=== PATIENT | female | born 1985 | race Caucasian/White ===

== ENCOUNTER 2017-10-12 19:21 | Emergency (ER) | payer OTHER, SELFPAY ==
[2017-10-12 19:29] VITALS: BP 115/75; PULSE 65; RESP 18; TEMP 36.9; O2SAT 99
[2017-10-12 19:50] LABS: Bacteria Urine Moderate (10-30); RBC Urine 5-10/HPF (0-5/HPF); WBC Urine 10-30/HPF (0-5/HPF)
[2017-10-12 19:51] LABS: Culture Indicated Urine Specimen Cultured; Mucus Urine 1+ (Negative)
--- NOTE | 2017-10-12 20:19 | ED_ITS ---
HPI - Female Genitourinary General Chief complaint: Urogenital-Female Stated complaint: thinks she has a UTI Time Seen by Provider: 10/12/17 19:28 History of Present Illness HPI Narrative: HPI 32-year-old female presents with one half day of urinary frequency in dysuria. Denies fevers, chills, flank pain. No history of kidney stones ROS with no recent constitutional symptoms. Exam Gen: Pleasant, non-toxic appearing, resting comfortably HEENT: NC, AT, PEERL, EOMI. Resp: Clear to auscultation bilaterally. Unlabored respirations with a normal work of breathing. Card: Regular rate and rhythm. Extremities warm and well perfused. GI: nondistended, nontender to palpation throughout all quadrants, no rebound, no guarding. : no CVA tenderness percussion bilaterally, no suprapubic tenderness to palpation. MSK: No visible deformities, strength and tone without visually appreciable deficit. Neuro: AO x 3, no facial asymmetry, vision and hearing WNL. Heme/Lymph: Deferred Skin: Normal color with no visible lesions (other than noted above). Psych: Mood and affect appropriate. UA - 5-10 RBCs, 10-30 WBCs, moderate bacteria. Negative urine test MDM Previous chart, nursing note, and vitals reviewed. A: 32-year-old female presents with one half day of urinary frequency in dysuria. DDx & Evaluation: UA consistent with UTI, history and exam without evidence of pyelonephritis, doubt ureterolithiasis given history and exam. Negative urine test. Rx for macrobid provided. Impression: UTI (please reference below for remainder of encounter information) Related Data Home Medications Medication Instructions Recorded Confirmed MULTIVITAMIN (One Daily 1 tab PO Q DAY #0 01/24/11 Multivitamin) [L-Lysine] 1,000 mg PO QDAY #0 11/25/16 [TURMERIC/CURCUMIN] 1 tab PO QDAY #0 08/14/17 [VITAMIN D3] PO QDAY #0 08/14/17 Previous Rx's Medication Instructions Recorded montelukast 10 mg PO PM #30 tab 02/18/17 triamcinolone acetonide 1 malika TOPICAL QDAY-BID #30 gm 02/18/17 fluconazole 200 mg PO QDAY #2 tab 03/27/17 drospirenone-ethinyl estradiol 1 tab PO QDAY #28 tab 08/14/17 [Myrtle] Allergies Allergy/AdvReac Type Severity Reaction Status Date / Time clindamycin [CLINDAMYCIN] Allergy Intermediate I JUST Unverified 09/03/17 12:12 DID NOT FEEL WELL AND MY BRAIN FELT FUZZY Penicillins [PENICILLINS] Allergy Intermediate HIVES Unverified 09/03/17 12:12 Sulfa (Sulfonamide Allergy Mild ITCHY Unverified 09/03/17 12:12 Antibiotics) [SULFA (SULFONAMIDE ANTIBIOTICS)] escitalopram [ESCITALOPRAM] AdvReac Intermediate (LEXAPRO) Unverified 09/03/17 12:12 HIVES PFSH Surgical History Status post delivery (01/21/09) Family History Mother Paraneoplastic syndrome, Onset Age: 47 Stiff person syndrome, Onset Age: 47 Exam Initial Vital Signs Initial Vital Signs: Vital Signs Temperature 98.5 F 10/12/17 19:29 Pulse Rate 65 10/12/17 19:29 Respiratory Rate 18 10/12/17 19:29 Blood Pressure 115/75 10/12/17 19:29 Pulse Oximetry 99 10/12/17 19:29 Course Orders Ordered: ED Orders 10/12/17 19:39 Urine Culture Stat Urine Microscopic Stat Discontinued Medications Nitrofurantoin Macrocrystals (Macrobid 100 Mg Capsule) 100 mg PO NOW ONE Stop: 10/12/17 20:17 Vital Signs - 8 hr 10/12/17 19:29 Temperature 98.5 F Pulse Rate 65 Respiratory Rate 18 Blood Pressure 115/75 Pulse Oximetry 99 MDM - Female Genitourinary Lab Data Lab Results 10/12/17 Range/Units 19:39 Urine RBC 5-10/hpf H (0-5/HPF) Urine WBC 10-30/hpf H (0-5/HPF) Urine Bacteria Moderate (10-30) H (None) Urine Mucus 1+ H (Negative) Ur Culture Indicated? Specimen cultured Micro UA Comment Not Reportable Discharge Plan Departure Prescriptions: No Action MULTIVITAMIN (One Daily Multivitamin) 1 tab PO Q DAY Qty: 0 RF: 0 [L-Lysine] 1,000 mg PO QDAY Qty: 0 RF: 0 triamcinolone acetonide 0.5 % ointment 1 malika Topical QDAY-BID Qty: 30 RF: 3 montelukast 10 MG tablet 10 mg PO PM Qty: 30 RF: 6 fluconazole 200 MG tablet 200 mg PO QDAY Qty: 2 RF: 1 [VITAMIN D3] PO QDAY Qty: 0 RF: 0 [TURMERIC/CURCUMIN] 1 tab PO QDAY Qty: 0 RF: 0 drospirenone-ethinyl estradiol [Myrtle] 0.03 MG/3 MG tablet 1 tab PO QDAY Qty: 28 RF: 12
[2017-10-12] MEDS: NITROFURANTOIN ER 100 MG CAPSULE PO (20:23)
[2017-10-12 20:29] VITALS: BP 119/80; PULSE 80; RESP 16; TEMP 36.6; O2SAT 98
== END 2017-10-12 20:30 | disposition home or self-care (01) ==
PROVIDERS: Emergency Provider Emergency Medicine; Family Provider Physician Assistant; PCP Physician Assistant
DX: N39.0 Urinary tract infection, site not specified (principal)
CPT/HCPCS: 81003; 81015; 81025; 87086; 87186; 99282; 99283

== ENCOUNTER → 2018-09-01 15:21 | Outpatient (CLI) | payer OTHER, SELFPAY | PROVIDERS: Family Provider Physician Assistant; PCP Physician Assistant; Visit Provider Physician Assistant | DX: R30.0 Dysuria (principal) | CPT/HCPCS: 87077; 87086; 87186 ==

== ENCOUNTER → 2018-09-17 14:23 | Outpatient (CLI) | payer OTHER, SELFPAY ==
[2018-09-17 14:40] LABS: Add Manual Diff / Slide Review NO; Basophils Absolute Auto 100 /uL (0-100); Basophils Percent Auto 0.9 % (0-2); Eosinophils Absolute Auto 0 /uL (0-450); Eosinophils Percent Auto 0.5 % (2-4); Hematocrit 40.3 % (36-46); Hemoglobin 13.8 g/dL (12.0-16.0); Lymphocytes Absolute Auto 2200 /uL (1100-4500); Lymphocytes Percent Auto 23.9 % (25-40); Mean Corpuscular HGB Conc 34.2 % (30-36); Mean Corpuscular Hemoglobin 30.7 PG (26-34); Mean Corpuscular Volume 89.7 fL (80-100); Monocytes Absolute Auto 700 /uL (0-900); Neutrophils Absolute Auto 6300 /uL (1500-7000); Neutrophils Percent Auto 67.7 % (50-75); Platelet Count 277 X10^3/uL (150-400); Red Blood Cell Count 4.49 X10^6/uL (4.0-5.2); Red Cell Distribution Width 13.2 % (11.6-14.8); White Blood Cell Count 9.3 X10^3/uL (4.5-11.0)
[2018-09-17 15:29] LABS: Alanine Aminotransferase 14 IU/L (9-52); Albumin 4.5 g/dL (3.5-5.0); Albumin Globulin Ratio 1.5 (1.0-2.8); Alkaline Phosphatase 98 U/L (38-126); Aspartate Aminotransferase 25 IU/L (14-36); Bilirubin Total 0.5 mg/dL (0.2-1.3); Blood Urea Nitrogen 16 mg/dL (7-17); Calcium 9.6 mg/dL (8.4-10.2); Carbon Dioxide 25 mmol/L (22-32); Chloride 100 mmol/L (98-107); Estimated Glomerular Filt Rate > 60.0 mL/min (>60); Globulin 3.1 g/dL (1.7-4.1); Glucose 89 mg/dL (70-100); HEMOLYSIS 18 (0-50); Potassium 4.5 mmol/L (3.4-5.1); Sodium 136 mmol/L (137-145); Total Protein 7.6 g/dL (6.3-8.2)
[2018-09-17 15:58] LABS: Thyroid Stimulating Hormone 0.95 uIU/mL (0.47-4.68)
== END ==
PROVIDERS: PCP Physician Assistant; Visit Provider Physician Assistant
DX: L65.9 Nonscarring hair loss, unspecified (principal); R53.83 Other fatigue
CPT/HCPCS: 36415; 80053; 84443; 85025

== ENCOUNTER → 2019-02-24 14:22 | Outpatient (CLI) | payer OTHER, SELFPAY ==
[2019-02-24 15:24] LABS: HEMOLYSIS < 15 (0-50); Iron 81 ug/dL (37-170)
[2019-02-24 15:30] LABS: Erythrocyte Sedimentation Rate 8 MM/HR (0-20)
[2019-02-24 15:35] LABS: Percent Iron Saturation 24 % (15-50); Total Iron Binding Capacity 344 ug/dL (265-497); Transferrin 291 mg/dL (206-381)
[2019-02-24 15:42] LABS: Free T3, Triiodothyronine Free 4.39 pg/mL (2.77-5.27); Free T4, Direct Thyroxine 0.89 ng/dL (0.78-2.19)
[2019-02-24 15:56] LABS: Thyroid Stimulating Hormone 0.97 uIU/mL (0.47-4.68)
[2019-02-24 16:17] LABS: Vitamin B12 595 pg/mL (239-931)
== END ==
PROVIDERS: PCP Physician Assistant; Visit Provider Physician Assistant
DX: L40.9 Psoriasis, unspecified (principal); L60.8 Other nail disorders; R63.5 Abnormal weight gain; M25.50 Pain in unspecified joint; R52 Pain, unspecified; R53.83 Other fatigue
CPT/HCPCS: 36415; 82607; 83540; 83550; 84439; 84443; 84481; 85651

== ENCOUNTER → 2019-04-20 14:31 | Outpatient (CLI) | payer OTHER, SELFPAY | PROVIDERS: PCP Physician Assistant | DX: Z23 Encounter for immunization (principal) | CPT/HCPCS: 90471; 90686 ==

== ENCOUNTER → 2019-08-14 08:57 | Outpatient (CLI) | payer OTHER, SELFPAY ==
[2019-08-14 10:23] LABS: Add Manual Diff / Slide Review NO; Basophils Absolute Auto 0 /uL (0-100); Basophils Percent Auto 0.5 % (0-2); Eosinophils Absolute Auto 0 /uL (0-450); Eosinophils Percent Auto 0.9 % (2-4); Hematocrit 41.6 % (36-46); Hemoglobin 13.6 g/dL (12.0-16.0); Lymphocytes Absolute Auto 2100 /uL (1100-4500); Lymphocytes Percent Auto 35.9 % (25-40); Mean Corpuscular HGB Conc 32.7 % (30-36); Mean Corpuscular Hemoglobin 30.4 PG (26-34); Monocytes Absolute Auto 500 /uL (0-900); Monocytes Percent Auto 8.8 % (3-14); Neutrophils Absolute Auto 3100 /uL (1500-7000); Neutrophils Percent Auto 53.9 % (50-75); Platelet Count 269 X10^3/uL (150-400); Red Blood Cell Count 4.47 X10^6/uL (4.0-5.2); Red Cell Distribution Width 13.1 % (11.6-14.8); White Blood Cell Count 5.7 X10^3/uL (4.5-11.0)
[2019-08-14 10:41] LABS: Alanine Aminotransferase 8 IU/L (<35); Albumin 4.6 g/dL (3.5-5.0); Albumin Globulin Ratio 1.4 (1.0-2.8); Alkaline Phosphatase 79 U/L (38-126); Aspartate Aminotransferase 20 IU/L (14-36); BUN Creatinine Ratio 20.3 (6-22); Bilirubin Total 0.6 mg/dL (0.2-1.3); Blood Urea Nitrogen 13 mg/dL (7-17); Carbon Dioxide 25 mmol/L (22-32); Chloride 103 mmol/L (98-107); Cholesterol 194 mg/dL (140-199); Estimated Glomerular Filt Rate > 60.0 mL/min (>60); Globulin 3.2 g/dL (1.7-4.1); Glucose 84 mg/dL (70-100); HDL Cholesterol 49 mg/dL (40-60); HEMOLYSIS < 15 (0-50); LDL Cholesterol Calculated 125 mg/dL (<100); Potassium 4.5 mmol/L (3.4-5.1); Sodium 137 mmol/L (137-145); Total Protein 7.8 g/dL (6.3-8.2); Triglycerides 100 mg/dL (35-150)
[2019-08-14 11:00] LABS: Vitamin D 25 Hydroxy (D3) 80.8 ng/mL (30.0-100.0)
[2019-08-14 11:12] LABS: TSH w/ Reflex to FT4 1.38 uIU/mL (0.47-4.68)
[2019-08-14 11:21] LABS: Erythrocyte Sedimentation Rate 4 MM/HR (0-20)
[2019-08-18 09:07] LABS: ANA Screen, IFA Negative (.)
== END ==
PROVIDERS: PCP Family Medicine; Referring Provider Family Medicine; Visit Provider Family Medicine
DX: Z13.29 Encounter for screening for other suspected endocrine disorder (principal); D23.9 Other benign neoplasm of skin, unspecified; E55.9 Vitamin D deficiency, unspecified; M25.50 Pain in unspecified joint; M54.5 Low back pain; R53.83 Other fatigue
CPT/HCPCS: 36415; 80053; 80061; 82306; 84443; 85025; 85651; 86038; 86430

== ENCOUNTER → 2019-09-09 07:26 | Outpatient (CLI) | payer OTHER, SELFPAY ==
--- NOTE | 2019-09-09 07:28 | DI.RAD.S_ITS ---
PROCEDURE: XR SHOULDER LT MIN 2V INDICATIONS: left shoulder pain TECHNIQUE: 3 views of the shoulder were acquired. COMPARISON: None. FINDINGS: Bones: No fractures or dislocations. No suspicious bony lesions. Visualized ribs appear intact. Mild glenohumeral joint degenerative change. Soft tissues: No suspicious soft tissue calcifications. IMPRESSION: Mild glenohumeral joint degenerative change. No evidence acute bony abnormality of the left shoulder. If clinical suspicion and/or symptoms persist, further assessment with repeat plain films, or advanced imaging (e.g., CT, MRI, or bone scan) may be helpful for further assessment. Dictated by: Willam Gabriel M.D. on 09/09/2019 at 9:03 Approved by: Willam aGbriel M.D. on 09/09/2019 at 9:03
== END ==
PROVIDERS: PCP Family Medicine; Referring Provider Family Medicine; Visit Provider Family Medicine
DX: M25.512 Pain in left shoulder (principal)
CPT/HCPCS: 73030

== ENCOUNTER → 2019-11-29 15:23 | Outpatient (CLI) | payer OTHER, SELFPAY ==
[2019-12-01 19:03] LABS: COVID19 Sendout Not Detected (Not Detect)
== END ==
PROVIDERS: PCP Family Medicine; Visit Provider Physician Assistant
DX: Z03.818 Encounter for observation for suspected exposure to other biological agents ruled out (principal)
CPT/HCPCS: 87635

== ENCOUNTER → 2020-01-21 16:37 | Outpatient (CLI) | payer OTHER, SELFPAY ==
[2020-01-21 17:24] LABS: Add Manual Diff / Slide Review NO; Basophils Absolute Auto 0 /uL (0-100); Basophils Percent Auto 0.3 % (0-2); Eosinophils Absolute Auto 100 /uL (0-450); Eosinophils Percent Auto 0.5 % (2-4); Hematocrit 40.9 % (36-46); Hemoglobin 13.8 g/dL (12.0-16.0); Lymphocytes Absolute Auto 2600 /uL (1100-4500); Mean Corpuscular HGB Conc 33.8 % (30-36); Mean Corpuscular Hemoglobin 31.2 PG (26-34); Mean Corpuscular Volume 92.3 fL (80-100); Monocytes Absolute Auto 600 /uL (0-900); Monocytes Percent Auto 5.9 % (3-14); Neutrophils Absolute Auto 6700 /uL (1500-7000); Neutrophils Percent Auto 67.3 % (50-75); Platelet Count 275 X10^3/uL (150-400); Red Blood Cell Count 4.43 X10^6/uL (4.0-5.2); Red Cell Distribution Width 13.2 % (11.6-14.8)
[2020-01-21 17:37] LABS: C-Reactive Protein Quant < 0.5 mg/dL (<1.0)
[2020-01-21 17:47] LABS: Erythrocyte Sedimentation Rate 9 MM/HR (0-20)
[2020-01-21 17:49] LABS: HCG Quantitative /Beta subunit < 2.4 mIU/mL
[2020-01-21 17:50] LABS: Follicle Stimulating Hormone 5.78 mIU/mL; Luteinizing Hormone 3.27 mIU/mL
[2020-01-23 18:18] LABS: CCP Antibodies IgG/IgA 11 units (0-19)
== END ==
PROVIDERS: PCP Family Medicine; Referring Provider Registered Nurse; Visit Provider Registered Nurse
DX: N92.6 Irregular menstruation, unspecified (principal); M05.80 Other rheumatoid arthritis with rheumatoid factor of unspecified site; M25.50 Pain in unspecified joint; R53.83 Other fatigue
CPT/HCPCS: 36415; 83001; 83002; 84702; 85025; 85651; 86140; 86200

== ENCOUNTER → 2020-01-25 10:42 | Outpatient (CLI) | payer OTHER, SELFPAY ==
--- NOTE | 2020-01-25 10:43 | DI.US.S_ITS ---
PROCEDURE: US PELVIC COMPLETE INDICATIONS: MENORRHAGIA TECHNIQUE: Real-time scanning was performed of the pelvic organs, with image documentation. Additional endovaginal scanning was necessary due to incomplete visualization of the adnexal and endometrial structures by transabdominal scanning. COMPARISON: None. FINDINGS: Transabdominal scanning: Limited scanning through the kidneys shows no hydronephrosis. No pathologic free abdominal or pelvic fluid. Endovaginal scanning: Uterus: The retroverted uterus is normal in size at 9.1 x 5.3 x 6.1 cm. The endometrium measures 4 mm in combined thickness. Ovaries: Right ovary measures 3.5 x 2.2 x 2.8 cm. Left ovary measures 4.2 x 2.3 x 2.8 cm. No suspicious ovarian or adnexal mass lesions. IMPRESSION: Unremarkable sonographic evaluation of the pelvis. No abnormalities identified to explain patient's symptoms. Dictated by: Frankie Coffman M.D. on 01/25/2020 at 11:27 Approved by: Frankie Coffman M.D. on 01/25/2020 at 11:34
== END ==
PROVIDERS: PCP Family Medicine; Referring Provider Registered Nurse; Visit Provider Registered Nurse
DX: N92.6 Irregular menstruation, unspecified (principal)
CPT/HCPCS: 76830; 76856

== ENCOUNTER → 2020-02-24 | Outpatient (CLI) | payer OTHER, SELFPAY | PROVIDERS: PCP Family Medicine; Referring Provider Internal Medicine; Visit Provider Internal Medicine | DX: Z23 Encounter for immunization (principal) | CPT/HCPCS: 90471; 90686 ==

== ENCOUNTER → 2020-04-12 08:25 | Outpatient (CLI) | payer OTHER, SELFPAY ==
[2020-04-12 11:33] LABS: COVID19 -Nasal RAPID Negative (Negative)
== END ==
PROVIDERS: PCP Family Medicine; Visit Provider Physician Assistant
DX: Z20.828 Contact with and (suspected) exposure to other viral communicable diseases (principal)
CPT/HCPCS: 87635

== ENCOUNTER → 2020-05-31 16:02 | Outpatient (CLI) | payer OTHER, SELFPAY ==
[2020-05-31] MEDS: COVID-19 VACC(MODERNA-1)/PF 100 MCG/0.5 ML VIAL IM (16:05)
== END ==
PROVIDERS: PCP Family Medicine; Visit Provider Internal Medicine
DX: Z23 Encounter for immunization (principal)
CPT/HCPCS: 0011A; 91301

== ENCOUNTER → 2020-06-27 13:54 | Outpatient (CLI) | payer OTHER, SELFPAY ==
[2020-06-27] MEDS: COVID-19 VACC #2, MRNA(MOD) 100 MCG/0.5 ML VIAL IM (13:59)
== END ==
PROVIDERS: PCP Family Medicine; Visit Provider Internal Medicine
DX: Z23 Encounter for immunization (principal)
CPT/HCPCS: 0012A; 91301

== ENCOUNTER → 2021-03-28 16:32 | Outpatient (CLI) | payer OTHER, SELFPAY ==
[2021-03-28 17:22] LABS: COVID19 -Nasal RAPID Negative (Negative)
== END ==
PROVIDERS: PCP Family Medicine; Referring Provider Nurse Practitioner Family; Visit Provider Nurse Practitioner Family
DX: Z20.822 Contact with and (suspected) exposure to COVID-19 (principal); R05.9 Cough, unspecified; R11.0 Nausea; R50.9 Fever, unspecified; R53.83 Other fatigue
CPT/HCPCS: 87635

== ENCOUNTER → 2021-04-06 12:24 | Outpatient (CLI) | payer OTHER, SELFPAY | PROVIDERS: PCP Family Medicine; Referring Provider Internal Medicine; Visit Provider Internal Medicine | DX: Z23 Encounter for immunization (principal) | CPT/HCPCS: 90471; 90686 ==

== ENCOUNTER → 2021-04-12 15:32 | Outpatient (CLI) | payer OTHER, SELFPAY ==
[2021-04-12 16:13] LABS: COVID19 -Nasal RAPID Negative (Negative)
[2021-04-12 16:33] LABS: Influenza A - CEPHEID Flu A NEGATIVE (NEGATIVE); Influenza B - CEPHEID Flu B NEGATIVE (NEGATIVE)
== END ==
PROVIDERS: PCP Family Medicine; Visit Provider Family Medicine
DX: Z20.822 Contact with and (suspected) exposure to COVID-19 (principal); R05.9 Cough, unspecified; R53.83 Other fatigue
CPT/HCPCS: 87502; 87635

== ENCOUNTER → 2021-04-12 16:11 | Outpatient (CLI) | payer OTHER, SELFPAY ==
--- NOTE | 2021-04-12 16:13 | DI.RAD.S_ITS ---
PROCEDURE: XR CHEST 2V INDICATIONS: cough TECHNIQUE: 2 views of the chest were acquired. COMPARISON: [facility], , CHEST 2 VIEW, 12/05/2016, 9:06. FINDINGS: Surgical changes and devices: None. Lungs and pleura: Lungs are clear. No pleural effusions or pneumothorax. Mediastinum: Mediastinal contours are normal. Heart size is normal. Bones and chest wall: No suspicious bony abnormalities. Soft tissues appear unremarkable. IMPRESSION: No acute process. Dictated by: Alex Girard M.D. on 04/12/2021 at 16:36 Approved by: Alex Girard M.D. on 04/12/2021 at 16:36
[2021-04-12 17:37] LABS: Add Manual Diff / Slide Review NO; Basophils Absolute Auto 0 /uL (0-100); Basophils Percent Auto 0.5 % (0-2); Eosinophils Absolute Auto 100 /uL (0-450); Eosinophils Percent Auto 1.5 % (2-4); Hematocrit 39.8 % (36-46); Hemoglobin 13.3 g/dL (12.0-16.0); Lymphocytes Absolute Auto 2900 /uL (1100-4500); Lymphocytes Percent Auto 37.5 % (25-40); Mean Corpuscular HGB Conc 33.5 % (30-36); Mean Corpuscular Hemoglobin 30.8 PG (26-34); Mean Corpuscular Volume 91.9 fL (80-100); Monocytes Absolute Auto 600 /uL (0-900); Monocytes Percent Auto 7.9 % (3-14); Neutrophils Absolute Auto 4100 /uL (1500-7000); Neutrophils Percent Auto 52.6 % (50-75); Platelet Count 308 X10^3/uL (150-400); Red Blood Cell Count 4.33 X10^6/uL (4.0-5.2); Red Cell Distribution Width 13.6 % (11.6-14.8); White Blood Cell Count 7.8 X10^3/uL (4.5-11.0)
[2021-04-12 18:07] LABS: Alanine Aminotransferase 10 IU/L (<35); Albumin 4.8 g/dL (3.5-5.0); Albumin Globulin Ratio 1.5 (1.0-2.8); Alkaline Phosphatase 92 U/L (38-126); Aspartate Aminotransferase 22 IU/L (14-36); Bilirubin Total 0.3 mg/dL (0.2-1.3); Blood Urea Nitrogen 18 mg/dL (7-17); Calcium 10.2 mg/dL (8.4-10.2); Carbon Dioxide 26 mmol/L (22-32); Chloride 100 mmol/L (98-107); Estimated Glomerular Filt Rate > 60.0 mL/min (>60); Globulin 3.2 g/dL (1.7-4.1); Glucose 85 mg/dL (70-100); HEMOLYSIS < 15 (0-50); Potassium 4.5 mmol/L (3.4-5.1); Sodium 137 mmol/L (137-145)
[2021-04-12 18:23] LABS: Vitamin D 25 Hydroxy (D3) 73.6 ng/mL (30.0-100.0)
[2021-04-12 18:26] LABS: Free T3, Triiodothyronine Free 2.86 pg/mL (2.77-5.27); Free T4, Direct Thyroxine 0.73 ng/dL (0.78-2.19)
[2021-04-12 18:39] LABS: Thyroid Stimulating Hormone 1.48 uIU/mL (0.47-4.68)
[2021-04-12 18:55] LABS: Vitamin B12 638 pg/mL (239-931)
[2021-04-14 18:18] LABS: Angiotensin Converting Enzyme 71 U/L (14-82)
== END ==
PROVIDERS: PCP Family Medicine; Referring Provider Family Medicine; Visit Provider Family Medicine
DX: R05.8 Other specified cough (principal); J34.89 Other specified disorders of nose and nasal sinuses; R41.89 Other symptoms and signs involving cognitive functions and awareness; E55.9 Vitamin D deficiency, unspecified; M25.50 Pain in unspecified joint; F33.41 Major depressive disorder, recurrent, in partial remission; L60.8 Other nail disorders; R53.83 Other fatigue; Z20.822 Contact with and (suspected) exposure to COVID-19
CPT/HCPCS: 36415; 71046; 80053; 82164; 82306; 82607; 84439; 84443; 84481; 85025; 87502; 87635

== ENCOUNTER → 2021-04-13 06:57 | Outpatient (CLI) | payer OTHER, SELFPAY ==
[2021-04-13 08:51] LABS: Cholesterol 251 mg/dL (140-199); HDL Cholesterol 49 mg/dL (40-60); LDL Cholesterol Calculated 156 mg/dL (<100); Triglycerides 231 mg/dL (35-150)
[2021-04-13 10:03] LABS: Cortisol AM (Before 10AM) 9.66 ug/dL (4.46-22.7)
== END ==
PROVIDERS: PCP Family Medicine; Referring Provider Family Medicine; Visit Provider Family Medicine
DX: R41.89 Other symptoms and signs involving cognitive functions and awareness (principal); E55.9 Vitamin D deficiency, unspecified; M25.50 Pain in unspecified joint; F33.41 Major depressive disorder, recurrent, in partial remission; L60.8 Other nail disorders
CPT/HCPCS: 36415; 80061; 82533

== ENCOUNTER → 2021-04-13 13:48 | Outpatient (CLI) | payer OTHER, SELFPAY ==
[2021-04-13] MEDS: COVID-19 VACC #3, MRNA(MOD) 50 MCG/0.25 ML VIAL IM (13:52)
== END ==
PROVIDERS: PCP Family Medicine; Visit Provider Internal Medicine
DX: Z23 Encounter for immunization (principal)
CPT/HCPCS: 0013A; 91301

== ENCOUNTER → 2021-05-22 15:26 | Outpatient (CLI) | payer OTHER, SELFPAY ==
--- NOTE | 2021-05-22 15:32 | DIET.CONS ---
Dietary Consultation Note Assessment: 35y [address] attending [address] visit for help with nutrition reccs for hypothyroid and HLD. Pt with recent labs showing HLD (LDL 156), hypothyroid (normal TSH and T4, low T3). Pt was recommended a GF diet from PCP and has been reading advice online which is conflicting and seems restrictive to her. Pt currently GF, avoiding cruciferous vegetables, soy, wondering if she should cut out all grains. Pt feels this confusion is leading to her not eating enough throughout the day, two meals and two snacks daily. Pts mom has stiff person symptom and hashimotos, pt not surprised, but not happy about her new dx. Pt also dealing with persistent cough awaiting chest CT. Taking levo-thyroxine for past 4-5w Takes first thing when wakes up with glass of water, then waiting hour before coffee and food. Pt eats eggs regularly, is avoiding most dairy at this time to try to manage HLD. Pt does not salt food at home, limited seafood intake, and no sea vegetable intake. Usual Day: takes med as directed 1 cup coffee c oatmilk creamer B: SO Delicious coconut yogurt c GF granola or 1 egg c hashbrowns Sn: Hummus c GF crackers, beef stick, freeze dried fruit and handful nuts D: GF pasta c Minimum 60oz water daily RD Impression: Pt may be low on iodine as evidenced by food recall and low T3 levels. Pt diet low in soluble fiber which is not helping HLD. Nutrition Diagnosis: nutrition related knowledge deficit r/t diet to support hypothyroid and HLD aeb pt getting conflicting advice and limiting diet as a result. Interventions: 1. Provided pt copy integrative hypothyroid nutrition and supplement handout. Pt will start incorporating iodine into diet whether seafood or sea vegetable based. Pt should not have to avoid soy or cruciferous vegetables if iodine levels are normalized. Pt would love to have this flexibility. Pt will eat 2 brazil nuts daily for selenium source and ensure Vit A, iron, and zinc through colorful vegetables and beans. 2. Discussed GF diet, good idea for pt to continue this, focus on lower GI foods, more collier based to take advantage of the soluble fiber to help cholesterol levels. Discussed purchasing mandolin for making zucchini noodles and homemade hashed browns. 3. Discussed importance of soluble fiber foods to lower LDL and total cholesterol. 4. Discussed starting meal service as pt wants to learn to cook. Pt will look into [employer] as they have GF plans. Also discussed purchasing regular meal and having GF options at home to swap since rest of house is not GF. Monitoring/Evaluations: f/u in 2mo Electronically Signed by: No Lao 05/22/21 15:32 Clinical Dietitian [address] [id number]
== END ==
PROVIDERS: PCP Family Medicine; Referring Provider Family Medicine; Visit Provider Family Medicine
DX: E03.9 Hypothyroidism, unspecified (principal); E78.5 Hyperlipidemia, unspecified
CPT/HCPCS: 97802

== ENCOUNTER → 2021-05-31 14:54 | Outpatient (CLI) | payer OTHER, SELFPAY ==
[2021-05-31 18:22] LABS: COVID19 -Nasal RAPID Negative (Negative)
== END ==
PROVIDERS: PCP Family Medicine; Referring Provider Internal Medicine; Visit Provider Internal Medicine
DX: Z20.822 Contact with and (suspected) exposure to COVID-19 (principal)
CPT/HCPCS: 87635; C9803

== ENCOUNTER → 2021-06-01 08:45 | Outpatient (CLI) | payer OTHER, SELFPAY ==
[2021-06-01 15:22] LABS: Free T3, Triiodothyronine Free 3.58 pg/mL (2.77-5.27); Free T4, Direct Thyroxine 1.05 ng/dL (0.78-2.19)
[2021-06-01 15:36] LABS: Thyroid Stimulating Hormone 0.717 uIU/mL (0.47-4.68)
[2021-06-02 21:11] LABS: Anti Thyroglobulin Antibody <1.0 IU/mL (0.0-0.9); Thyroid Peroxidase Antibodies <8 IU/mL (0-34)
--- NOTE | 2021-06-04 08:56 | PM.PFT.1 ---
Pulmonary Function Test Referral & Results Date Patient Seen: 06/01/21 Requesting provider: Florentin Cook Results: The spirometry demonstrates an FVC of 3.57 L which is 98% of predicted. The FEV1 was measured at 2.98 L which is 98% of predicted. The FEV1/FVC ratio was 83 which is 99% of predicted. Following the administration of bronchodilator there was Na% improvement in FEV1 and a 32% improvement in FEF 25-75% Lung volumes show an SVC of 3.54 L which is 101% of predicted. The diffusing capacity was measured at 30.52 which is 133% of predicted. The maximum voluntary ventilation was normal Interpretation: This study demonstrates normal pulmonary function
[2021-06-06 22:07] LABS: Triiodothyronine T3 Reverse 22.1 ng/dL (9.2-24.1)
== END ==
PROVIDERS: PCP Family Medicine; Referring Provider Family Medicine; Visit Provider Family Medicine
DX: R05.3 Chronic cough (principal); E03.9 Hypothyroidism, unspecified
CPT/HCPCS: 36415; 84439; 84443; 84481; 84482; 86376; 86800; 94060; 94726; 94729

== ENCOUNTER → 2021-06-07 15:28 | Outpatient (CLI) | payer OTHER, SELFPAY ==
--- NOTE | 2021-06-07 15:29 | DI.ECHO.S_ITS ---
[facility]---------+ [facility] +---------+ : : [id number] : : : : [id number] : : : : Phone: [phone] Echocardiogram Report + + :Name: ARIEL MILLER Study Date: 06/07/2021 Height: 63 in : :[facility] ReadingLocation: Weight: 150 lb : : Gender: Female BSA: 1.7 m2 : :: 1985 Age: 35 yrs BP: 129/88 mmHg: :Reason For Study: Abnormal results of pulmonary function test, : :R/O shunt : :Ordering Physician: SHAPerformed By: Sher Go : :Referring: YO HODGE : + + Interpretation Summary The left ventricle is normal in size and wall thickness. Left ventricular systolic function appears normal without focal wall motion abnormalities. The ejection fraction is estimated to be 55-60%. The right ventricle is normal in size and function. Pulmonary artery pressures cannot be estimated because of the lack of a measurable TR jet velocity but the IVC suggests a CVP of around 3 mmHg. Both atria are normal in size. Bubble studies are seen on slides 48, 49 and 50. No obvious shunting There is no significant valvular heart disease. The aortic root is normal size. Procedure: A two-dimensional transthoracic echocardiogram with color flow and Doppler was performed. The study quality was technically adequate. There is no prior echocardiogram noted for this patient. The patient was in normal sinus rhythm during the exam. Left Ventricle: The left ventricle is normal in size and wall thickness. Left ventricular systolic function appears normal without focal wall motion abnormalities. The ejection fraction is estimated to be 55-60%. Diastolic parameters suggest probable normal left ventricular diastolic function and normal filling pressures. Right Ventricle: The right ventricle is normal in size and function. Atria: Both atria are normal in size. Bubble studies are seen on slides 48, 49 and 50. No obvious shunting. Mitral Valve: The mitral valve leaflets appear borderline thickened, but open well. There is trace mitral regurgitation. Aortic Valve: The aortic valve is trileaflet. The aortic valve opens well. There is trace aortic regurgitation. Tricuspid Valve: The tricuspid valve is normal. There is a trace or physiologic amount of tricuspid regurgitation. Pulmonary artery pressures cannot be estimated because of the lack of a measurable TR jet velocity but the IVC suggests a CVP of around 3 mmHg. Pulmonic Valve: The pulmonic valve leaflets are thin and pliable; valve motion is normal. There is a trace or physiologic amount of pulmonic regurgitation. There is no significant valvular heart disease. Great Vessels: The aortic root is normal size. The ascending aorta is normal in size. The aortic arch is normal in size. The IVC is of normal diameter and collapses greater than 50% with a sniff. This suggests a low right atrial pressure of 3 mm Hg. Pericardium/ Pleura There is no pericardial effusion. There is no pleural effusion. MMode/2D Measurements & Calculations LVIDd: 5.0 cm LVOT diam: 1.8 cm LVIDs: 3.1 cm Ao root diam: 2.5 cm FS: 38.0 % asc Aorta Diam: 2.3 cm IVSd: 0.70 cm Ao Arch Diam (Prox Trans): 2.5 cm LVPWd: 0.80 cm LV islas. diameter/BSA (cm/m^2): 2.9 LV sys. diameter/BSA (cm/m^2): 1.8 LA A2 area: 16.5 cm2 RA long axis: 4.5 cm LA A4 area: 14.1 cm2 IVC diam: 1.5 cm LA length (vol): 4.6 cm LA vol: 42.7 ml LA vol index: 24.9 ml/m2 LVLd ap2: 7.8 cm TAPSE_phl: 3.0 cm LVLs ap2: 6.2 cm Doppler Measurements & Calculations Ao V2 max: 108.0 cm/sec LVOT Max Gil: 86.8 cm/sec Ao V2 mean: 88.0 cm/sec LV V1 max P.0 mmHg Ao max P.0 mmHg LV V1 VTI: 19.2 cm Ao mean P.0 mmHg FERDINAND(I,D): 2.0 cm2 Ao V2 VTI: 24.4 cm FERDINAND(V,D): 2.0 cm2 sev ratio: 0.79 FERDINAND indexed to BSA (cm^2/m^2): 1.2 MV E max gil: 86.5 cm/sec PA V2 max: 77.0 cm/sec MV A max gil: 33.8 cm/sec PA V2 mean: 66.8 cm/sec MV E/A: 2.6 PA mean P.0 mmHg Med Peak E' Gil: 11.3 cm/sec PA pr(Accel): 26.8 mmHg E/E' med: 7.7 Lat Peak E' Gil: 16.3 cm/sec E/E' lat: 5.3 E/e' average: 6.5 MV dec time: 0.21 sec SV(LVOT): 48.9 ml AV VR_phl: 0.80 FERDINAND(VTI)/BSA_phl: 1.2 Reading Physician:05:28 PM
== END ==
PROVIDERS: PCP Family Medicine; Referring Provider Family Medicine; Visit Provider Family Medicine
DX: R94.2 Abnormal results of pulmonary function studies (principal); I34.0 Nonrheumatic mitral (valve) insufficiency; I35.1 Nonrheumatic aortic (valve) insufficiency; I07.1 Rheumatic tricuspid insufficiency; I37.1 Nonrheumatic pulmonary valve insufficiency
CPT/HCPCS: 93306

== ENCOUNTER → 2021-06-29 11:20 | Outpatient (CLI) | payer OTHER, SELFPAY ==
--- NOTE | 2021-06-29 11:28 | DI.CT.S_ITS ---
PROCEDURE: CT CHEST W CON INDICATIONS: Chronic cough TECHNIQUE: After the administration of intravenous contrast, 5 mm thick sections acquired from the pulmonary apices to the posterior costophrenic angles. 1 mm axial lung, 5 mm thick coronal and sagittal reformats and 7 mm axial MIP were acquired. For radiation dose reduction, the following was used: automated exposure control, adjustment of mA and/or kV according to patient size. COMPARISON: None. FINDINGS: Image quality: Excellent. Lungs and pleura: No acute air space opacities. Benign calcified 3 mm subpleural nodule in the lingula (image 191/series 3) as well as benign calcified 2 mm posterior right middle lobe nodule (image 170/series 3). No suspicious pulmonary nodules or masses. No septal thickening or nodularity. No pleural effusions or pneumothorax. Central and peripheral airways are patent and normal in caliber. Mediastinum: Heart size is normal. No pericardial effusion. No mediastinal or hilar adenopathy by size criteria. Thoracic aorta and central pulmonary arteries are normal in size. Esophagus is normal in caliber. No hiatal hernia. Bones and chest wall: No suspicious bony lesions. No vertebral body compression fractures. No axillary or supraclavicular adenopathy by size criteria. Thyroid gland is unremarkable . Abdomen: Visualized upper abdominal solid organs appear normal. Upper abdominal bowel loops are normal in caliber. IMPRESSION: CT chest without acute cardiopulmonary abnormalities. No findings identified to explain patient's history of chronic cough. Dictated by: Frankie Coffman M.D. on 06/29/2021 at 14:18 Approved by: Frankie Coffman M.D. on 06/29/2021 at 15:02
== END ==
PROVIDERS: PCP Family Medicine; Referring Provider Family Medicine; Visit Provider Family Medicine
DX: R05.8 Other specified cough (principal); R53.83 Other fatigue; Z83.2 Family history of diseases of the blood and blood-forming organs and certain disorders involving the immune mechanism; T50.B95A Adverse effect of other viral vaccines, initial encounter
CPT/HCPCS: 71260

== ENCOUNTER → 2021-09-08 08:25 | Outpatient (CLI) | payer OTHER, SELFPAY ==
[2021-09-08 10:31] LABS: Free T3, Triiodothyronine Free 3.47 pg/mL (2.77-5.27); Free T4, Direct Thyroxine 0.83 ng/dL (0.78-2.19)
[2021-09-08 10:33] LABS: Cholesterol 203 mg/dL (140-199); HDL Cholesterol 43 mg/dL (40-60); LDL Cholesterol Calculated 125 mg/dL (<100); Triglycerides 173 mg/dL (35-150)
[2021-09-08 10:45] LABS: Thyroid Stimulating Hormone 1.08 uIU/mL (0.47-4.68)
== END ==
PROVIDERS: PCP Family Medicine; Referring Provider Naturopath; Visit Provider Naturopath
DX: E03.9 Hypothyroidism, unspecified (principal); E78.5 Hyperlipidemia, unspecified
CPT/HCPCS: 36415; 80061; 84439; 84443; 84481

== ENCOUNTER → 2021-11-11 09:15 | Outpatient (CLI) | payer OTHER, SELFPAY | PROVIDERS: PCP Family Medicine; Visit Provider Nurse Practitioner Family | DX: R30.0 Dysuria (principal) | CPT/HCPCS: 87077; 87086 ==

== ENCOUNTER → 2022-01-30 12:39 | Outpatient (CLI) | payer OTHER, SELFPAY ==
--- NOTE | 2022-01-30 12:41 | DI.MG.S_ITS ---
BILATERAL DIGITAL DIAGNOSTIC MAMMOGRAM 3D/2D: 01/30/2022 CLINICAL: Baseline. Bilateral breast pain. No prior exams were available for comparison. Both breasts are heterogeneously dense, which may obscure small masses (category c / 51-75% glandular tissue). There is an oval asymmetry in the right breast anterior depth lateral region seen on the craniocaudal view only. No other significant masses, calcifications, or other findings are seen in either breast. IMPRESSION: INCOMPLETE: NEEDS ADDITIONAL IMAGING EVALUATION The oval asymmetry in the right breast is indeterminate. A targeted ultrasound is recommended and will immediately follow. Based on the Tyrer Cuzick model (a risk assessment model) the patient's lifetime risk is 9.8% and her 10 year risk is 0.6%. According to the ACR, ACS, and NCCN guidelines, an annual breast MRI exam along with mammogram is recommended if the patient's lifetime risk is 20% or greater. This exam was interpreted at Station ID: [id number]. NOTE: For mammograms, a report in lay terms will be sent to the patient. Approximately 15% of breast malignancies will not be visualized mammographically. In the management of a palpable breast mass, a negative mammogram must not discourage biopsy of a clinically suspicious lesion. Electronically Signed By: Ar Queen M.D. slc/:01/30/2022 15:02:39 ACR BI-RADS Category 0: Incomplete [id number]
--- NOTE | 2022-01-30 12:42 | DI.US.S_ITS ---
LIMITED ULTRASOUND OF RIGHT BREAST AND AXILLA: 01/30/2022 CLINICAL: Focal right breast pain. [facility] and real-time ultrasound of the right breast 7-10 o'clock, 12 o'clock, and axilla regions were performed. An scale images of the real-time examination were reviewed. There is a 2.3 cm x 2.2 cm x 1.3 cm oval mass with a circumscribed margin in the right breast at 9 o'clock anterior depth 9 cm from the nipple. This oval mass is hypoechoic. This correlates with mammography findings. Color flow imaging demonstrates that there is vascularity present. There also is a 1.1 cm x 0.8 cm x 0.5 cm oval mass with a circumscribed margin in the right breast at 8 o'clock middle depth 6 cm from the nipple. This oval mass is hypoechoic with a well-defined boundary. Color flow imaging demonstrates that there is vascularity present. There are small adjacent similar appearing circumscribed masses. Additionally, there is a 1.2 cm x 1 cm x 0.6 cm oval mass in the right breast at 7 o'clock middle depth 3 cm from the nipple. This oval mass is hypoechoic. Color flow imaging demonstrates that there is vascularity present. In addition, there is a 1.1 cm x 0.9 cm x 0.5 cm oval cyst with a septated internal wall in the right breast at 12 o'clock middle depth 3 cm from the nipple. This oval cyst is anechoic with posterior acoustic enhancement. Color flow imaging demonstrates that there is no vascularity present. There are small adjacent complicated cysts. No significant abnormalities were seen sonographically in the right axilla. IMPRESSION: SUSPICIOUS OF MALIGNANCY The 2.3 cm x 2.2 cm x 1.3 cm oval mass in the right breast at 9 o'clock anterior depth most likely is a fibroadenoma and is at a low suspicion for malignancy. -An ultrasound guided biopsy of the largest mass is recommended. The 1.1 cm mass in the right breast at 8 o'clock middle depth resembles a fibroadenoma and is probably benign. The 1.2 cm mass in the right breast at 7 o'clock middle depth resembles a fibroadenoma and is probably benign. The 1.1 cm cyst in the right breast at 12 o'clock middle depth is consistent with a complicated cyst and is probably benign. -A follow-up ultrasound in 6 months is recommended. No enlarged right axillary lymph nodes. Exam findings were discussed with the patient by Dr. Harmon. Real-time in room scanning was also preformed for Dr. Harmon. This exam was interpreted at Station ID: [id number]. Electronically Signed By: Ar Qeuen M.D. [facility] [place]/:01/30/2022 15:14:18 letter sent: Biopsy Required Ultrasound BI-RADS: 4a Low suspicion for malignancy
== END ==
PROVIDERS: PCP Family Medicine; Referring Provider Naturopath; Visit Provider Naturopath
DX: N64.4 Mastodynia (principal); N63.15 Unspecified lump in the right breast, overlapping quadrants; N60.01 Solitary cyst of right breast
CPT/HCPCS: 76642; 77066; G0279

== ENCOUNTER → 2022-03-01 12:47 | Outpatient (CLI) | payer OTHER, SELFPAY | PROVIDERS: PCP Family Medicine; Referring Provider Internal Medicine; Visit Provider Internal Medicine | DX: Z23 Encounter for immunization (principal) | CPT/HCPCS: 90471; 90686 ==

== ENCOUNTER → 2022-04-22 16:10 | Outpatient (CLI) | payer OTHER, SELFPAY ==
[2022-04-22 17:40] LABS: Add Manual Diff / Slide Review NO; Basophils Absolute Auto 0 /uL (0-100); Basophils Percent Auto 0.6 % (0-2); Eosinophils Absolute Auto 200 /uL (0-450); Eosinophils Percent Auto 2.7 % (2-4); Hematocrit 40.6 % (36-46); Hemoglobin 13.4 g/dL (12.0-16.0); Lymphocytes Absolute Auto 3200 /uL (1100-4500); Lymphocytes Percent Auto 42.8 % (25-40); Mean Corpuscular HGB Conc 33.1 % (30-36); Mean Corpuscular Volume 90.6 fL (80-100); Monocytes Absolute Auto 500 /uL (0-900); Monocytes Percent Auto 7.1 % (3-14); Neutrophils Absolute Auto 3500 /uL (1500-7000); Neutrophils Percent Auto 46.8 % (50-75); Platelet Count 317 X10^3/uL (150-400); Red Blood Cell Count 4.49 X10^6/uL (4.0-5.2); Red Cell Distribution Width 12.9 % (11.6-14.8); White Blood Cell Count 7.5 X10^3/uL (4.5-11.0)
[2022-04-22 18:24] LABS: Prolactin 12.4 ng/mL (3.0-18.6)
[2022-04-22 18:33] LABS: Thyroid Stimulating Hormone 1.21 uIU/mL (0.47-4.68)
[2022-04-22 18:42] LABS: Ferritin 32 ng/mL (6-137)
== END ==
PROVIDERS: PCP Family Medicine; Referring Provider Obstetrics & Gynecology; Visit Provider Obstetrics & Gynecology
DX: N92.6 Irregular menstruation, unspecified (principal); E03.9 Hypothyroidism, unspecified
CPT/HCPCS: 36415; 82728; 84146; 84439; 84443; 85025

== ENCOUNTER → 2022-05-14 16:27 | Outpatient (CLI) | payer OTHER, SELFPAY ==
[2022-05-14 17:51] LABS: Influenza A - CEPHEID Flu A NEGATIVE (NEGATIVE); Influenza B - CEPHEID Flu B NEGATIVE (NEGATIVE)
[2022-05-14 18:04] LABS: COVID-19 CEPHEID 4-PLEX PCR Negative (Negative)
== END ==
PROVIDERS: PCP Family Medicine; Visit Provider Physician Assistant Medical
DX: J06.9 Acute upper respiratory infection, unspecified (principal); R05.8 Other specified cough; R53.83 Other fatigue; Z20.822 Contact with and (suspected) exposure to COVID-19
CPT/HCPCS: 0240U

== ENCOUNTER → 2022-08-02 14:20 | Outpatient (CLI) | payer OTHER, SELFPAY ==
--- NOTE | 2022-08-02 | DI.US.S_ITS ---
ULTRASOUND OF RIGHT BREAST: 08/02/2022 CLINICAL: 6 month follow up. Comparison is made to exams dated: 01/30/2022 ultrasound, 01/30/2022 mammogram - [facility], and 02/08/2022 ultrasound biopsy - [facility]. Color flow ultrasound of the right breast was performed on the areas of interest. An scale images of the real-time examination were reviewed. There is a stable 1 cm x 0.5 cm x 1.1 cm hypoechoic mass in the right breast at 8 o'clock anterior depth. There also is a stable 1 cm x 0.5 cm x 0.6 cm oval hypoechoic mass in the right breast at 7 o'clock middle depth. Additionally, there is a stable previously biopsied 2.2 cm x 1.3 cm x 2.2 cm oval hypoechoic mass with a circumscribed margin in the right breast at 9 o'clock anterior depth. The cyst in the right breast at 12 o'clock middle depth is no longer seen. IMPRESSION: PROBABLY BENIGN The stable 1 cm x 0.5 cm x 1.1 cm mass in the right breast at 8 o'clock anterior depth most likely is a fibroadenoma and is probably benign. The stable 1 cm x 0.5 cm x 0.6 cm oval mass in the right breast at 7 o'clock middle depth most likely is a fibroadenoma and is probably benign. A follow-up ultrasound in 6 months is recommended to demonstrate stability. The stable 2.2 cm x 1.3 cm x 2.2 cm oval mass in the right breast at 9 o'clock anterior depth is consistent with a previously biopsied fibroadenoma and is benign. This exam was interpreted at Station ID: [id number]. Electronically Signed By: Kelsey salazar/:08/06/2022 08:38:10 Entry: - 08/06/2022 08:38:10 letter sent: Followup Recommended Ultrasound BI-RADS: 3 Probably benign
== END ==
PROVIDERS: PCP Family Medicine; Referring Provider Naturopath; Visit Provider Naturopath
DX: R92.8 Other abnormal and inconclusive findings on diagnostic imaging of breast (principal); N63.13 Unspecified lump in the right breast, lower outer quadrant; D24.1 Benign neoplasm of right breast
CPT/HCPCS: 76642

== ENCOUNTER 2022-08-14 09:15 | Emergency (ER) | payer OTHER, SELFPAY ==
[2022-08-14 09:26] VITALS: BP 141/84; PULSE 69; RESP 18; TEMP 36.8; O2SAT 98; BMI 28.8
--- NOTE | 2022-08-14 09:32 | DI.RAD.S_ITS ---
PROCEDURE: XR CHEST 1V INDICATIONS: chest pain TECHNIQUE: One view of the chest was acquired. COMPARISON: [facility], CR, XR CHEST 2V, 04/12/2021, 16:07. FINDINGS: Surgical changes and devices: None. Lungs and pleura: Lungs are clear. No pleural effusions or pneumothorax. Mediastinum: Mediastinal contours appear normal. Heart size is normal. Bones and chest wall: No suspicious bony lesions. Overlying soft tissues appear unremarkable. IMPRESSION: No acute cardiopulmonary pathology. Dictated by: Daniel Olguin M.D. on 08/14/2022 at 8:51 Approved by: Daniel Olguin M.D. on 08/14/2022 at 8:57
[2022-08-14 09:51] LABS: Add Manual Diff / Slide Review NO; Basophils Absolute Auto 0 /uL (0-100); Basophils Percent Auto 0.5 % (0-2); Eosinophils Absolute Auto 0 /uL (0-450); Eosinophils Percent Auto 0.6 % (2-4); Hematocrit 41.2 % (36-46); Hemoglobin 13.5 g/dL (12.0-16.0); Lymphocytes Absolute Auto 2200 /uL (1100-4500); Mean Corpuscular HGB Conc 32.7 % (30-36); Mean Corpuscular Hemoglobin 29.3 PG (26-34); Mean Corpuscular Volume 89.6 fL (80-100); Monocytes Absolute Auto 700 /uL (0-900); Monocytes Percent Auto 9.9 % (3-14); Neutrophils Absolute Auto 4100 /uL (1500-7000); Platelet Count 258 X10^3/uL (150-400); Red Cell Distribution Width 13.8 % (11.6-14.8); White Blood Cell Count 7.1 X10^3/uL (4.5-11.0)
--- NOTE | 2022-08-14 10:09 | ED_ITS ---
HPI - Chest Pain General Chief Complaint: Chest Pain Stated Complaint: LT pect & shoulder pain Time Seen by Provider: 08/14/22 09:36 Source: patient Mode of arrival: Ambulatory Limitations: no limitations History of Present Illness HPI narrative: Patient is a 36-year-old female. Does have a history of asthma. A couple weeks ago she did have COVID. She states that this morning she woke up. She is been coughing since her COVID diagnosis. She did use her albuterol inhaler to try to help with the cough. Only minimal improvement. She went to work. While she was at work she had a fairly sudden onset of left-sided pectoralis and left arm discomfort. States that it felt like a muscle spasm. Did not particularly get worse with palpation or movement but was worse with taking a deep breath. Lasted several minutes and has not completely resolved. Related Data Home Medications Medication Instructions Recorded Confirmed MULTIVITAMIN (One Daily 1 tab PO Q DAY ##0 01/24/11 05/14/22 Multivitamin) [L-Lysine] 1,000 mg PO QDAY ##0 11/25/16 05/14/22 [TURMERIC/CURCUMIN] 1 tab PO QDAY ##0 08/14/17 05/14/22 lactobacillus combination no.8 3 3,000 mmu cells PO DAILY 09/01/18 05/14/22 billion cell capsule (Adult Probiotic) cholecalciferol (vitamin D3) 125 5,000 unit PO DAILY 02/24/19 05/14/22 mcg (5,000 unit) capsule d-mannose each PO DAILY 04/30/19 05/14/22 Previous Rx's Medication Instructions Recorded triamcinolone acetonide 0.5 % 1 applic topical QDAY-BID #30 grams 09/15/20 topical ointment duloxetine 30 mg capsule,delayed 30 mg PO BID #60 caps 01/02/21 release bupropion HCl 75 mg tablet 75 mg PO BID #60 tabs 03/07/21 clonazepam 0.5 mg tablet See Rx Instructions PO .COMPLEX 03/15/21 #60 tabs ondansetron 4 mg disintegrating 4 mg PO Q8H PRN nausea and 03/15/21 tablet vomiting #20 tabs albuterol sulfate 90 mcg/actuation 2 puff inhalation Q6H PRN 06/27/21 aerosol inhaler (ProAir HFA) shortness of breath or wheezing #6.7 grams phenazopyridine 200 mg tablet 200 mg PO TID 6 doses #6 tabs 11/11/21 (Pyridium) levothyroxine 50 mcg tablet 50 mcg PO DAILY #90 tabs 01/08/22 Allergies Allergy/AdvReac Type Severity Reaction Status Date / Time clindamycin [CLINDAMYCIN] Allergy Intermediate I JUST Verified 08/14/22 09:33 DID NOT FEEL WELL AND MY BRAIN FELT FUZZY Penicillins [PENICILLINS] Allergy Intermediate HIVES Verified 08/14/22 09:33 Sulfa (Sulfonamide Allergy Mild ITCHY Verified 08/14/22 09:33 Antibiotics) [SULFA (SULFONAMIDE ANTIBIOTICS)] escitalopram [ESCITALOPRAM] AdvReac Intermediate (LEXAPRO) Verified 08/14/22 09:33 HIVES Review of Systems Constitutional Constitutional: Reports system reviewed and no additional complaints, except as documented ENT Ears, Nose, Mouth, and Throat: Reports system reviewed and no additional complaints, except as documented Respiratory Respiratory: Reports system reviewed and no additional complaints, except as documented Musculoskeletal Musculoskeletal: Reports system reviewed and no additional complaints, except as documented Integumentary/Breasts Skin/Breast: Reports system reviewed and no additional complaints, except as documented Neurologic Neurologic: Reports system reviewed and no additional complaints, except as documented Hematologic/Lymphatic On Anticoagulants: No Patient History Medical History Acute left-sided thoracic back pain Acute neck pain Brain fog Cervical radiculopathy Cervical somatic dysfunction Chronic left shoulder pain Chronic neck pain Cranial somatic dysfunction Family history of autoimmune disorder Guyon syndrome Hyperlipidemia, mixed Hypothyroid Nausea Premenstrual dysphoric syndrome Recurrent dry cough Segmental and somatic dysfunction of abdomen and other regions Segmental and somatic dysfunction of rib cage Segmental and somatic dysfunction of thoracic region Segmental and somatic dysfunction of upper extremity Severe menstrual cramps Sinus pain Vitamin D deficiency Surgical History History of section Status post delivery (01/21/09) Family History Mother Paraneoplastic syndrome Stiff person syndrome Father No problems noted. Social History (Reviewed 08/14/22 @ 10:12 by KYLE Fam Smoking Status: Former smoker Tobacco: How many years used: 8 second hand exposure: Yes (Not often) alcohol intake: current substance use type: does not use Smoking Status: Former smoker alcohol intake frequency: holidays/special occasions only Substance Use Type: does not use Exam Initial Vital Signs Initial Vital Signs: Vital Signs Temperature 98.2 F 08/14/22 09:26 Pulse Rate 69 08/14/22 09:26 Respiratory Rate 18 08/14/22 09:26 Blood Pressure 141/84 H 08/14/22 09:26 Pulse Oximetry 98 08/14/22 09:26 Oxygen Delivery Method Room Air 08/14/22 09:26 Const General: cooperative and No ill appearing HENMT Head: normal to inspection and normocephalic Chest Chest: No crepitus and No tenderness Resp Effort & Inspection: normal respiratory effort Auscultation: clear to auscultation bilaterally Cardio Rate: regular rate Rhythm: regular rhythm Skin General: no rashes or lesions noted Neuro General: patient alert, patient awake and moves all extremities Scores HEART Score Heart Score history: Slightly Suspicious Heart Score EKG: Normal Heart Score Age: < 45 years old Heart Score risk factors: No known risk factors Heart Score troponin: < or = to normal limit Heart Score Total: 0 Course Orders Ordered: ED Orders 08/14/22 09:32 XR chest 1V Stat EKG-12 Lead Stat 08/14/22 09:40 Complete Blood Count AUTO DIFF Stat Comprehensive Metabolic Panel Stat Lipase Stat Troponin & CK Cardiac Panel Stat Discontinued Medications Aspirin (Aspirin 81 Mg Chew Tab) 324 mg PO NOW ONE Stop: 08/14/22 09:33 Last Admin: 08/14/22 09:49 Dose: Not Given Documented By: MALU Vital Signs Vital signs: Vital Signs - 8 hr 08/14/22 09:26 Temperature 98.2 F Pulse Rate 69 Respiratory Rate 18 Blood Pressure 141/84 H Pulse Oximetry 98 Oxygen Delivery Method Room Air MDM - Chest Pain Lab Data Attestation: I reviewed the patient's lab results. 08/14/22 09:40 08/14/22 09:40 Labs: Lab Results 08/14/22 08/14/22 Range/Units 09:40 09:40 WBC 7.1 (4.5-11.0) X10^3/uL RBC 4.60 (4.0-5.2) X10^6/uL Hgb 13.5 (12.0-16.0) g/dL Hct 41.2 (36-46) % MCV 89.6 (80-100) fL MCH 29.3 (26-34) PG MCHC 32.7 (30-36) % RDW 13.8 (11.6-14.8) % Plt Count 258 (150-400) X10^3/uL Neut % (Auto) 58.0 (50-75) % Lymph % (Auto) 31.0 (25-40) % Mcintosh % (Auto) 9.9 (3-14) % Eos % (Auto) 0.6 L (2-4) % Baso % (Auto) 0.5 (0-2) % Neut # (Auto) 4100 (4692-2445) /uL Lymph # (Auto) 2200 (5714-2623) /uL Mcintosh # (Auto) 700 (0-900) /uL Eos # (Auto) 0 (0-450) /uL Baso # (Auto) 0 (0-100) /uL Sodium 135 L (137-145) mmol/L Potassium 3.8 (3.4-5.1) mmol/L Chloride 102 (98-107) mmol/L Carbon Dioxide 23 (22-32) mmol/L BUN 11 (7-17) mg/dL Creatinine 0.56 (0.52-1.04) mg/dL Estimated GFR > 60 (>60) mL/min BUN/Creatinine Ratio 19.6 (6-22) Glucose 88 (70-100) mg/dL Calcium 9.2 (8.4-10.2) mg/dL Total Bilirubin 0.8 (0.2-1.3) mg/dL AST 23 (14-36) IU/L ALT 13 (<35) IU/L Alkaline Phosphatase 84 (38-126) U/L Total Creatine Kinase 68 (30-135) U/L CK-MB (CK-2) TNP CK-MB (CK-2) Rel Index TNP Troponin I < 0.012 (0.01-0.034) ng/mL Total Protein 8.1 (6.3-8.2) g/dL Albumin 4.7 (3.5-5.0) g/dL Globulin 3.4 (1.7-4.1) g/dL Albumin/Globulin Ratio 1.4 (1.0-2.8) Lipase 46 (23-300) U/L Imaging Data Chest x-ray: Radiologist's Impression: PROCEDURE:? XR CHEST 1V ? INDICATIONS:? chest pain ? TECHNIQUE:? One view of the chest was acquired.? ? COMPARISON:? [facility], CR, XR CHEST 2V, 04/12/2021, 16:07. ? FINDINGS:? ? Surgical changes and devices:? None.? ? Lungs and pleura:? Lungs are clear.? No pleural effusions or pneumothorax.? ? Mediastinum:? Mediastinal contours appear normal.? Heart size is normal.? ? Bones and chest wall:? No suspicious bony lesions.? Overlying soft tissues appear unremarkable.? ? IMPRESSION:? No acute cardiopulmonary pathology. ECG Data Attestation: I personally reviewed and interpreted this ECG as follows: Interpretation: Sinus rhythm Ventricular rate is 76 Normal axis Normal QRS Normal QTC No ST T wave changes MDM Narrative Medical decision making narrative: Patient is now asymptomatic. EKG chest x-ray labs are all unremarkable. Has a low risk heart score. Low suspicion for ACS. Low suspicion for pulmonary embolism. Unsure the exact etiology but does not appear to be an infectious issue nor cardiac issue. Patient was given return precautions. She expressed understanding and agreement. Discharge Plan Departure Patient Disposition: Home Clinical Impression: Atypical chest pain Instructions: DI for Atypical Chest Pain Activity Restrictions/Additional Instructions: Recommend that you continue to take all of your medication as directed. No restrictions on your activities. Return to the emergency department for any new or worsening symptoms. Prescriptions: No Action Adult Probiotic 3 billion cell capsule 3,000 mmu cells PO DAILY phenazopyridine [Pyridium] 200 mg tablet 200 mg PO TID 0 Days Qty: 6 0RF MULTIVITAMIN (One Daily Multivitamin) 1 tab PO Q DAY Qty: 0 [L-Lysine] 1,000 mg PO QDAY Qty: 0 [TURMERIC/CURCUMIN] 1 tab PO QDAY Qty: 0 triamcinolone acetonide 0.5 % ointment 1 applic Topical QDAY-BID Qty: 30 3RF duloxetine 30 mg capsule,delayed release(DR/EC) 30 mg PO BID Qty: 60 5RF Rx Instructions: Start with 1 tab daily for a week and then increase to 60 mg daily if needed for symptoms. bupropion HCl 75 mg tablet 75 mg PO BID Qty: 60 5RF albuterol sulfate [ProAir HFA] 90 mcg/actuation HFA aerosol inhaler 2 puff inhalation Q6H PRN (Reason: shortness of breath or wheezing) Qty: 6.7 12RF levothyroxine 50 mcg tablet 50 mcg PO DAILY Qty: 90 1RF cholecalciferol (vitamin D3) 5,000 unit capsule 5,000 unit PO DAILY clonazepam 0.5 mg tablet See Rx Instructions PO .COMPLEX Qty: 60 0RF Rx Instructions: PO; Take 1-2 tablets twice daily as needed for anxiety, PO ondansetron 4 mg tablet,disintegrating 4 mg PO Q8H PRN (Reason: nausea and vomiting) Qty: 20 1RF d-mannose Powder PO DAILY Referrals: Paolo Cook DO [Primary Care Provider] - Stand Alone Forms: Patient Portal/API
[2022-08-14 10:14] LABS: Alanine Aminotransferase 13 IU/L (<35); Albumin 4.7 g/dL (3.5-5.0); Albumin Globulin Ratio 1.4 (1.0-2.8); Alkaline Phosphatase 84 U/L (38-126); Aspartate Aminotransferase 23 IU/L (14-36); BUN Creatinine Ratio 19.6 (6-22); Bilirubin Total 0.8 mg/dL (0.2-1.3); Blood Urea Nitrogen 11 mg/dL (7-17); Calcium 9.2 mg/dL (8.4-10.2); Carbon Dioxide 23 mmol/L (22-32); Chloride 102 mmol/L (98-107); Creatine Kinase 68 U/L (30-135); Estimated Glomerular Filt Rate > 60 mL/min (>60); Globulin 3.4 g/dL (1.7-4.1); Glucose 88 mg/dL (70-100); HEMOLYSIS < 15 (0-50); Lipase 46 U/L (23-300); Potassium 3.8 mmol/L (3.4-5.1); Sodium 135 mmol/L (137-145); Total Protein 8.1 g/dL (6.3-8.2)
[2022-08-14 10:26] LABS: Troponin I < 0.012 ng/mL (0.01-0.034)
[2022-08-14 11:09] VITALS: BP 140/80; PULSE 68; RESP 18; O2SAT 99
== END 2022-08-14 11:10 | disposition home or self-care (01) ==
PROVIDERS: Emergency Provider Emergency Medicine; PCP Family Medicine
DX: R07.89 Other chest pain (principal)
CPT/HCPCS: 36415; 71045; 80053; 82550; 83690; 84484; 85025; 93005; 93010; 99284

== ENCOUNTER → 2022-08-30 14:46 | Outpatient (CLI) | payer OTHER, SELFPAY ==
[2022-08-30 16:24] LABS: Free T3, Triiodothyronine Free 3.58 pg/mL (2.77-5.27)
[2022-08-30 16:26] LABS: Free T4, Direct Thyroxine 0.71 ng/dL (0.78-2.19)
[2022-08-30 16:39] LABS: Thyroid Stimulating Hormone 0.943 uIU/mL (0.47-4.68)
== END ==
PROVIDERS: PCP Family Medicine; Referring Provider Naturopath; Visit Provider Naturopath
DX: E03.9 Hypothyroidism, unspecified (principal)
CPT/HCPCS: 36415; 84439; 84443; 84481

== ENCOUNTER → 2022-10-29 15:10 | Outpatient (CLI) | payer OTHER, SELFPAY ==
--- NOTE | 2022-10-29 15:13 | DI.RAD.S_ITS ---
PROCEDURE: XR CERVICAL SPINE 2V OR 3V INDICATIONS: NECK PAIN TECHNIQUE: 3 view(s) of the cervical spine were acquired. COMPARISON: None. FINDINGS: Bones: No fractures or dislocations to the T1 level. There is mild reversal normal cervical spine curvature. The lateral masses of C1 appear intact on the odontoid view. No suspicious bony lesions. Mild C5-C6 and C6-C7 degenerative disc disease. Soft tissues: No prevertebral soft tissue swelling. IMPRESSION: Mild C5-C6 and C6-C7 degenerative disc disease. No fracture. No acute osseous lesion. If symptoms and/or clinical suspicion for pathology persists, evaluation with MRI should be considered for further assessment. Dictated by: Erika Mckenzie MD, PhD on 10/29/2022 at 15:42 Approved by: Erika Mckenzie MD, PhD on 10/29/2022 at 15:48
== END ==
PROVIDERS: PCP Family Medicine; Referring Provider Family Medicine; Visit Provider Family Medicine
DX: M50.322 Other cervical disc degeneration at C5-C6 level (principal)
CPT/HCPCS: 72040

== ENCOUNTER → 2022-11-02 12:59 | Outpatient (CLI) | payer OTHER, SELFPAY ==
--- NOTE | 2022-11-02 13:05 | DI.RAD.S_ITS ---
PROCEDURE: XR CHEST 2V INDICATIONS: Thoracic outlet syndrome TECHNIQUE: 2 views of the chest were acquired. COMPARISON: [facility], , XR CHEST 1V, 08/14/2022, 9:34. FINDINGS: Surgical changes and devices: None. Lungs and pleura: Lungs are clear. No pleural effusions or pneumothorax. Mediastinum: Mediastinal contours are normal. Heart size is normal. Bones and chest wall: No suspicious bony abnormalities. Soft tissues appear unremarkable. IMPRESSION: Normal two view chest x-ray Approved by: Alfonzo Nix M.D. on 11/02/2022 at 14:05
--- NOTE | 2022-11-02 13:05 | DI.RAD.S_ITS ---
PROCEDURE: XR SHOULDER RT MIN 2V INDICATIONS: shoulder, chest, back pain, possible thoracic outlet syndrom TECHNIQUE: 3 views of the shoulder were acquired. COMPARISON: [facility], CR, XR SHOULDER LT MIN 2V, 09/09/2019, 7:25. FINDINGS: Bones: No fractures or dislocations. No suspicious bony lesions. Visualized ribs appear intact. Soft tissues: No suspicious soft tissue calcifications. IMPRESSION: Normal right shoulder radiographs Approved by: Alfonzo Nix M.D. on 11/02/2022 at 14:04
== END ==
PROVIDERS: PCP Family Medicine; Referring Provider Family Medicine; Visit Provider Family Medicine
DX: M25.511 Pain in right shoulder (principal); R07.9 Chest pain, unspecified; M54.9 Dorsalgia, unspecified
CPT/HCPCS: 71046; 73030

== ENCOUNTER → 2022-11-15 11:13 | Outpatient (CLI) | payer OTHER, SELFPAY ==
--- NOTE | 2022-11-15 11:15 | DI.RAD.S_ITS ---
PROCEDURE: XR THORACIC SPINE 3V INDICATIONS: RIB PAIN TECHNIQUE: 3 views of the thoracic spine were acquired. COMPARISON: None. FINDINGS: Bones: No fractures or dislocations. No suspicious bony lesions. 12 pairs of ribs are noted, and appear intact where visualized. Soft tissues: No paravertebral stripe thickening. IMPRESSION: Normal thoracic spine radiographs Approved by: Alfonzo Nix M.D. on 11/15/2022 at 12:54
== END ==
PROVIDERS: Family Provider Family Medicine; PCP Family Medicine; Referring Provider Physical Medicine & Rehabilitation; Visit Provider Physical Medicine & Rehabilitation
DX: G54.0 Brachial plexus disorders (principal); R07.81 Pleurodynia
CPT/HCPCS: 72072

== ENCOUNTER → 2022-11-24 15:14 | Outpatient (CLI) | payer OTHER, SELFPAY ==
--- NOTE | 2022-11-24 15:30 | DI.MRI.S_ITS ---
PROCEDURE: MR CERVICAL SPINE WO CON INDICATIONS: Right C6 radiculopathy TECHNIQUE: Noncontrast sagittal T1 spin echo and T2 fast spin echo, sagittal STIR, foraminal oblique sagittal T2 fast spin echo, and axial gradient echo or T2 fast spin echo through the cervical spine. COMPARISON: None. FINDINGS: Image quality: Excellent. Alignment and Curvature: No spondylolisthesis. There is focal kyphosis of the cervical spine centered at C5 Bone Marrow: Marrow demonstrates normal overall signal. Spinal Cord: Visualized spinal cord has normal size and signal. No cerebellar tonsillar herniation. Paraspinous Soft Tissues: No paravertebral masses. Prevertebral soft tissues are normal in thickness. C2-C3: Normal appearance. C3-C4: No canal stenosis. Mild left foraminal stenosis. C4-C5: Mild disc desiccation and height loss. Broad-based disc bulge. There is a left paracentral 0.6 x 0.3 x 0.9 cm broad-based disc bulge which narrows the left lateral recess and deforms the left anterior aspect of the cord. No cord signal abnormality. There is mild bilateral foraminal stenosis. Mild canal stenosis. C5-C6: Mild disc desiccation and height loss. Broad-based disc bulge. Broad-based left paracentral disc bulge which measures 0.8 x 0.4 x 0.4 cm. There is mild deformity of the anterior left aspect of the cord. No cord signal abnormality. Moderate bilateral foraminal stenosis. Mild canal stenosis. C6-C7: Moderate disc desiccation and height loss. Broad-based disc bulge. There is a right paracentral disc bulge which deforms the anterior aspect of the right cord. No cord signal abnormality. Moderate bilateral neural foraminal stenosis. Mild canal stenosis. C7-T1: Normal appearance. IMPRESSION: 1. C4-5, C5-6, and C6-7 broad-based paracentral disc bulges as above which deform the anterior aspect of the cord. No cord signal abnormality noted. 2. Moderate bilateral neural foraminal stenosis at C5-6 and C6-7. 3. Mild canal stenosis at C4-5, C5-6, and C6-7. 4. Focal kyphosis centered at C5. Dictated by: Kelsey Baker M.D. on 11/25/2022 at 11:15 Approved by: Kelsey Baker M.D. on 11/25/2022 at 11:42
== END ==
PROVIDERS: Family Provider Family Medicine; PCP Family Medicine; Referring Provider Physical Medicine & Rehabilitation; Visit Provider Physical Medicine & Rehabilitation
DX: M50.121 Cervical disc disorder at C4-C5 level with radiculopathy (principal); M48.02 Spinal stenosis, cervical region; M40.202 Unspecified kyphosis, cervical region
CPT/HCPCS: 72141

== ENCOUNTER → 2022-11-28 13:14 | Outpatient (CLI) | payer OTHER, SELFPAY | PROVIDERS: Family Provider Family Medicine; PCP Family Medicine; Referring Provider Family Medicine; Visit Provider Family Medicine | DX: M25.511 Pain in right shoulder (principal); R20.0 Anesthesia of skin | CPT/HCPCS: 95886; 95909 ==

== ENCOUNTER → 2023-02-03 13:31 | Outpatient (CLI) | payer OTHER, SELFPAY ==
--- NOTE | 2023-02-03 13:32 | DI.MG.S_ITS ---
BILATERAL DIGITAL DIAGNOSTIC MAMMOGRAM 3D/2D: 02/03/2023 CLINICAL: Short term follow up from Ultrasound, due bilateral. Comparison is made to exams dated: 02/08/2022 mammogram - [facility] and 01/30/2022 mammogram - [facility]. Both breasts are heterogeneously dense, which may obscure small masses (category c / 51-75% glandular tissue). There is a 1.5 cm oval mass with a circumscribed margin in the right breast at 8 o'clock posterior depth. This is increased in size. There also is a stable benign oval mass with a circumscribed margin in the right breast at 11 o'clock anterior depth. This correlates with the biopsy. No other significant masses, calcifications, or other findings are seen in either breast. IMPRESSION: INCOMPLETE: NEEDS ADDITIONAL IMAGING EVALUATION The 1.5 cm oval mass in the right breast at 8 o'clock posterior depth is indeterminate. An ultrasound is recommended. Based on the Tyrer Cuzick model (a risk assessment model) the patient's lifetime risk is 9.8% and her 10 year risk is 0.7%. According to the ACR, ACS, and NCCN guidelines, an annual breast MRI exam along with mammogram is recommended if the patient's lifetime risk is 20% or greater. This exam was interpreted at Station ID: [id number]. NOTE: For mammograms, a report in lay terms will be sent to the patient. Approximately 15% of breast malignancies will not be visualized mammographically. In the management of a palpable breast mass, a negative mammogram must not discourage biopsy of a clinically suspicious lesion. Electronically Signed By: Antonio Sandhu M.D. lc/:02/03/2023 15:20:36 ACR BI-RADS Category 0: Incomplete [id number]
--- NOTE | 2023-02-03 13:32 | DI.US.S_ITS ---
PROCEDURE: US BREAST RT LIMITED COMPARISON: [facility], BREAST RT LIMITED, 08/02/2022, 15:02. INDICATIONS: abnormal mammogram FINDINGS: IMPRESSION: Dictated by: Antonio Sandhu M.D. on 02/03/2023 at 15:22 Approved by: Antonio Sandhu M.D. on 02/03/2023 at 15:25
--- NOTE | 2023-02-03 14:11 | DI.US.S_ITS ---
Patient Name: ARIEL MILLER date: 1985 Sex: F Attending Physician: Joey Indications: Date: 02/03/2023 15:25 At the request of: YO HODGE Procedure: US breast RT limited LIMITED ULTRASOUND OF RIGHT BREAST AND AXILLA: 02/03/2023 CLINICAL: Patient returns today to evaluate two focal asymmetries in the right breast. Comparison is made to exams dated: 02/03/2023 mammogram, 08/02/2022 ultrasound - [facility], 02/08/2022 ultrasound biopsy, 02/08/2022 mammogram - [facility], 01/30/2022 ultrasound, and 01/30/2022 mammogram - [facility]. Color flow and real-time ultrasound of the right breast axilla were performed. An scale images of the real-time examination were reviewed. There is a 1.6 cm x 0.9 cm x 1.4 cm oval mass in the right breast at 8 o'clock anterior depth 7 cm from the nipple. This oval mass is hypoechoic. This abnormality is increased in size. There also is a stable 1.1 cm x 0.7 cm x 0.7 cm oval mass in the right breast at 7 o'clock middle depth 3 cm from the nipple. This oval mass is hypoechoic. No significant abnormalities were seen sonographically in the right axilla. IMPRESSION: SUSPICIOUS OF MALIGNANCY The 1.6 cm x 0.9 cm x 1.4 cm oval mass in the right breast at 8 o'clock anterior depth is suspicious of malignancy. An ultrasound guided biopsy is recommended. Size is increased from July 2022. The stable 1.1 cm x 0.7 cm x 0.7 cm oval mass in the right breast at 7 o'clock middle depth most likely is a fibroadenoma and is probably benign. A follow-up ultrasound in 6 months is recommended. This exam was interpreted at Station ID: [id number]. Electronically Signed By: Antonio Sandhu M.D. /:02/03/2023 15:25:24 Continued Report - Page 2 of 2 Patient Name: ARIEL MILLER date: 1985 Sex: F Attending Physician: Joey Indications: Date: 02/03/2023 15:25 At the request of: YO HODGE Procedure: US breast RT limited letter sent: Biopsy Required Ultrasound BI-RADS: 4 Suspicious for malignancy
== END ==
PROVIDERS: Family Provider Family Medicine; PCP Family Medicine; Referring Provider Family Medicine; Visit Provider Family Medicine
DX: R92.8 Other abnormal and inconclusive findings on diagnostic imaging of breast (principal); N63.13 Unspecified lump in the right breast, lower outer quadrant
CPT/HCPCS: 76642; 77066; G0279

== ENCOUNTER → 2023-02-13 14:04 | Outpatient (CLI) | payer OTHER, SELFPAY ==
--- NOTE | 2023-02-13 | PATH_ITS ---
[facility] Accession Number: [id number] No. of containers..01 Tissue . 01 Material submitted: . breast - RIGHT BREAST MASS 8:00 7CMFN . 01 Diagnosis: Right Breast, 8 o'clock, 7 cm From Nipple, Image-Guided Core Biopsy: Fibroepithelial lesion consistent with fibroadenoma. Negative for significant atypia and malignancy. MRV 02/17/2023 1428 Local . 01 Electronically signed: . Deanna Chow MD, Pathologist NPI- [id number] . 01 Gross description: . The specimen is received in formalin labeled with the patient's name, , and right breast 8 o'clock, 7 cm FN consists of five yellow to strange needle core biopsies ranging in length from 0.8 to 1.7 cm in length and averaging 0.2 cm in diameter. The specimen is inked black and is submitted entirely in cassette A1. . The specimen was removed on 02/13/2023 at 1536. Time in formalin not provided. Cold ischemic time cannot be calculated. Total fixation time is approximately 34 hours. ([id number]) /MRV 02/14/2023 0934 Local . 01 Pathologist provided ICD-10: N63.10 . 01 CPT . 078330 Specimen Comment: A courtesy copy of this report has been sent to [facility] Performed at: 01 [facility] [address] [place] [address], [place], [place] [id number] MD Daljit Gonzalez MD Phone: [phone]
--- NOTE | 2023-02-13 14:05 | DI.US.S_ITS ---
PROCEDURE: US BX BREAST PERC W VAC DEVICE COMPARISON: None. INDICATIONS: RIGHT BREAST 8:00 7CMFN MASS FINDINGS: IMPRESSION: Dictated by: Nicholas Lerma M.D. on 02/17/2023 at 10:06 Approved by: Nicholas Lerma M.D. on 02/17/2023 at 10:13
--- NOTE | 2023-02-13 14:05 | DI.MG.S_ITS ---
UNILATERAL RIGHT DIGITAL DIAGNOSTIC MAMMOGRAM 3D/2D POST-NEEDLE BIOPSY: 02/13/2023 CLINICAL: Post clip. Comparison is made to exams dated: 02/03/2023 ultrasound, 02/03/2023 mammogram, 08/02/2022 ultrasound, and 01/30/2022 mammogram - [facility]. The right breast is heterogeneously dense, which may obscure small masses (category c / 51-75% glandular tissue). There is a 1.1 cm x 0.7 cm x 0.7 cm mass in the right breast at 6 o'clock middle depth 3 cm from the nipple. There also is a marker clip in the appropriate position in the right breast at 7 o'clock anterior depth 7 cm from the nipple. This marker clip placement is at the biopsy site. No other significant masses or calcifications are seen in the breast. IMPRESSION: PROBABLY BENIGN The 1.1 cm x 0.7 cm x 0.7 cm mass in the right breast at 6 o'clock middle depth needs additional evaluation. There was a successful marker clip placement in the right breast at 7 o'clock anterior depth. Future imaging is recommended as follows: 08/04/2023 follow-up right ultrasound. Based on the Tyrer Cuzick model (a risk assessment model) the patient's lifetime risk is 9.8% and her 10 year risk is 0.7%. According to the ACR, ACS, and NCCN guidelines, an annual breast MRI exam along with mammogram is recommended if the patient's lifetime risk is 20% or greater. This exam was interpreted at Station ID: [id number]. NOTE: For mammograms, a report in lay terms will be sent to the patient. Approximately 15% of breast malignancies will not be visualized mammographically. In the management of a palpable breast mass, a negative mammogram must not discourage biopsy of a clinically suspicious lesion. Electronically Signed By: Nicholas caal/hussein:02/17/2023 10:13:15 copy to: TRE ALEX ACR BI-RADS Category 3: Probably benign [id number]
--- NOTE | 2023-02-13 14:28 | DI.US.S_ITS ---
Patient Name: ARIEL MILLER date: 1985 Sex: F Attending Physician: Joey Indications: Date: 02/19/2023 17:00 At the request of: YO HODGE Procedure: US bx breast perc w vac device ULTRASOUND GUIDED BIOPSY RIGHT BREAST USING VACUUM DEVICE WITH MARKING DEVICE INSERTED AND POST MAMMOGRAPHIC IMAGIN02/13/2023 CLINICAL: Right breast mass. PATIENT CONSENT: Risks (minor bleeding, infection, vasovagal reaction and repeat procedure), benefits and alternatives were explained to the patient and written informed consent was obtained. Correlation is made to exams dated: 02/13/2023 mammogram, 02/03/2023 ultrasound, 02/03/2023 mammogram, 08/02/2022 ultrasound - [facility], 02/08/2022 ultrasound biopsy, and 02/08/2022 mammogram - [facility] [place]. An ultrasound guided biopsy using real-time ultrasound was performed for the wider than tall circumscribed oval mass located in the right breast at 8 o'clock middle depth 7 cm from the nipple. This was described on the previous mammography and ultrasound reports. The skin was prepped in the usual manner. Local anesthetic was administered to the access site. A 13 gauge biopsy needle was placed adjacent to the abnormality under ultrasound guidance. Once the needle was documented to be in the correct location, four specimens were obtained using the Mammotome biopsy system. A clip was inserted into the biopsy cavity. Post procedure mammographic imaging was obtained. The specimens were sent to the laboratory for pathological analysis. IMPRESSION: ULTRASOUND GUIDED BIOPSY BENIGN Ultrasound guided biopsy of the wider than tall mass in the right breast at 8 o'clock middle depth 7 cm from the nipple was successful. Pathology indicates benign fibroadenoma (FA). Pathology results are concordant with imaging findings. Return to annual mammogram screening schedule is recommended to start at age 40. Continued Report - Page 2 of 2 Patient Name: ARIEL MILLER date: 1985 Sex: F Attending Physician: Joey Indications: Date: 02/19/2023 17:00 At the request of: YO HODGE Procedure: US bx breast perc w vac device Future imaging is recommended as follows: 08/04/2023 follow-up right ultrasound for follow up of separate probably benign mass at 7 o'clock middle depth. This exam was interpreted at Station ID: [id number]. Nicholas Elizondo M.D. ,[facility]/:02/19/2023 17:00:43 copy to: TRE ALEX
== END ==
PROVIDERS: Family Provider Family Medicine; PCP Family Medicine; Referring Provider Family Medicine; Visit Provider Family Medicine
DX: D24.1 Benign neoplasm of right breast (principal); N63.15 Unspecified lump in the right breast, overlapping quadrants
CPT/HCPCS: 19083; 77065

== ENCOUNTER → 2023-03-13 11:00 | Outpatient (CLI) | payer OTHER, SELFPAY | PROVIDERS: Family Provider Family Medicine; PCP Family Medicine; Referring Provider Family Medicine; Visit Provider Family Medicine | DX: Z23 Encounter for immunization (principal) | CPT/HCPCS: 90471; 90686 ==

== ENCOUNTER 2023-07-17 16:45 | Outpatient (RCR) | payer OTHER, SELFPAY ==
--- NOTE | 2023-03-04 18:01 | PT.OIE ---
Current Diagnoses Radiculopathy, cervical region (03/04/23) Low back pain, unspecified (03/04/23) Past Medical History (Last Updated 12/11/22 @ 17:25 by Paolo Cook DO) Acute left-sided thoracic back pain Acute neck pain Brain fog Cervical radiculopathy Cervical radiculopathy at C6 Cervical somatic dysfunction Chronic left shoulder pain Chronic neck pain Chronic tension type headache Cranial somatic dysfunction Family history of autoimmune disorder Guyon syndrome Hyperlipidemia, mixed Hypothyroid Nausea Neurogenic thoracic outlet syndrome of right brachial plexus Premenstrual dysphoric syndrome Recurrent dry cough Right arm numbness Segmental and somatic dysfunction of abdomen and other regions Segmental and somatic dysfunction of rib cage Segmental and somatic dysfunction of thoracic region Segmental and somatic dysfunction of upper extremity Severe menstrual cramps Shoulder pain, right Sinus pain Vitamin D deficiency Past Surgical History (Last Reviewed 12/09/22 @ 12:15 by Tono Antoine DO) History of section Status post delivery (01/21/09) Visit Care Team Role Provider Type Paolo Cook DO Attending Provider Physician Family Provider Primary Care Provider Referring Provider Specialty: [facility] Address: [address] [place] [address] Email: Physical Therapy Initial Evaluation PT-OP-A Visit Information Start: 03/04/23 17:19 Freq: Status: Active Protocol: Document 03/04/23 16:30 DCW (Rec: 03/04/23 17:47 DCW [id number]) Out-Patient Physical Therapy Visit Information Visit Information Visit Type Initial Evaluation Visit Start Time 16:30 Visit Stop Time 17:15 Total Visit Minutes 45 Visit Number 1 Number of HOD CARRIER Visits 0 Evaluation Information Evaluation Date 03/04/23 PT-OP-B Current Condition Start: 03/04/23 17:19 Freq: Status: Active Protocol: Document 03/04/23 16:30 DCW (Rec: 03/04/23 17:47 DCW [id number]) Current Condition History of Current Condition Onset Date 10/21/22 Current Complaints R radicular pain/numbness/ tingling History of Current Condition Pt is a 37 year old female presenting with a four month history of right UE radicular symptoms resulting in numbness , weakness, and tingling in her right arm, and specifically into her first, second, and third fingers. EMG nerve conduction study showed evidence of C7-8 nerve root involvement, and cervical MRI showed C4-5, C5-6, and C6-7 disc bulges. Pt notes that she has been experiencing spasming in her right upper trap, lat, and serratus anterior. Was struggling to keep up with typical activities of weight training and yoga due to weakness. Does note that over the past few weeks, the numbness and tingling has been improving, and currently feels more like a diminished, muted sensation. Has been receiving OMT, unsure if it has caused the improvement or not. Prior Treatments and Tests Cervical MRI: IMPRESSION: 1. C4-5, C5-6, and C6-7 broad- based paracentral disc bulges as above which deform the anterior aspect of the cord. No cord signal abnormality noted. 2. Moderate bilateral neural foraminal stenosis at C5-6 and C6-7. 3. Mild canal stenosis at C4-5, C5-6, and C6 -7. 4. Focal kyphosis centered at C5. per Kelsey Baker M.D. on 11/25/2022 Treatment Goals Patient/Caregiver Goals Return to yoga and weight lifting without UE weakness or numbness PT-OP-C Subjective Start: 03/04/23 17:19 Freq: Status: Active Protocol: Document 03/04/23 16:30 DCW (Rec: 03/04/23 17:47 DCW [id number]) OP-PT Subjective Patient Comments Patient Comments I keep feeling a little better, but then something happens that just seems to set me back. Like it was doing well, but then I had to lay in an awkward position for a breast biopsy for 15-20 minutes, and that was enough to just flare everything back up. Patient Reported Progress Improving OP-PT Pain Assessment Pain Assessment Grid Paper Pain Assessment Grid Completed Yes: See scan PT-OP-F Manual Assessment Start: 03/04/23 17:19 Freq: Status: Active Protocol: Document 03/04/23 16:30 DCW (Rec: 03/04/23 17:47 DCW [id number]) Manual Assessments Soft Tissue Assessment Soft Tissue Mobility Assessment Moderate tone in right UT, suboccipitals, scalenes, levator, subscap. Significant increase in tone when in an upright seated posture. Joint Mobility Assessment Joint Mobility Assessment Hypomobility in cervical vertebrae, specifically in C5 with tenderness to palpation 2 /4: pain with wincing. PT-OP-K Range of Motion Start: 03/04/23 17:19 Freq: Status: Active Protocol: Document 03/04/23 16:30 DCW (Rec: 03/04/23 17:47 DCW [id number]) Cervical Spine Range of Motion Cervical Spine Active Degrees Testing Position Sitting Flexion 32 Extension 55 Rotation Left 65 Rotation Right 65 Lateral Flexion Left 35 Lateral Flexion Right 20 ROM Limitations Soft Tissue Tightness,Muscle Tone PT-OP-L Special Tests Start: 03/04/23 17:19 Freq: Status: Active Protocol: Document 03/04/23 16:30 DCW (Rec: 03/04/23 17:47 DCW [id number]) Special Tests Cervical Spine Special Tests Passive Neck Flexion Test Results Complaint of suboccipital tightness Alar Ligament Test Results Negative Slump Test Results Negative Traction Test Results Negative Spurling's Test Test Results Negative Foraminal Compression Test Results Negative PT-OP-M Strength Start: 03/04/23 17:19 Freq: Status: Active Protocol: Document 03/04/23 16:30 DCW (Rec: 03/04/23 17:47 DCW [id number]) Shoulder Strength Shoulder Manual Muscle Testing Right Flexion 4 Good Abduction (C5) 5 Normal External Rotation 4 Good Internal Rotation 5 Normal Left Flexion 5 Normal Abduction (C5) 5 Normal External Rotation 5 Normal Internal Rotation 5 Normal Hand Machine Shorthand Reporter/Pinch Strength Hand Dominance Hand Dominance Right Hand Strength Right Machine Shorthand Reporter (lbs) 68.3 Comments Three trial average (80, 65, 60) Left Machine Shorthand Reporter (lbs) 61.7 Comments Three trial average (70, 60, 55) PT-OP-T Assessment and Plan Start: 03/04/23 17:19 Freq: Status: Active Protocol: Document 03/04/23 16:30 DCW (Rec: 03/04/23 18:01 DCW [id number]) Physical Therapy Assessment Rehab Potential Rehabilitation Potential Good Evaluation Complexity Number of Personal Factors/Comorbidities 0 Number of Body Systems Impaired 3 Clinical Presentation at Evaluation Stable Impairments Impairments Activity Tolerance,Functional Activities,Functional Mobility ,Pain,ROM,Sensation,Soft Tissue Mobility,Strength Goals Two Impairment 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 LTG Duration 05/04/23 One Impairment Pt does not have an appropriate home exercise program Short Term Goal (STG) Pt to be independent and compliant with an appropriate HEP STG Duration 04/04/23 Assessment Summary Assessment Pt presents with signs and symptoms consistent with referring diagnosis. Pt experiencing radicular UE symptoms (numbness/tingling, weakness), likely secondary to cervical disc bulges at C4-5, C5-6, and C6-7. Additionally, pt experiencing moderate tone throughout cervical musculature and right shoulder girdle. Should benefit from skilled therapy focusing on soft tissue mobilization, stretching, strengthening, improving body mechanics, cervical ROM, nerve glides, and joint mobilizations. Is already showing good improvement with radicular symptoms, going from numbness/ tingling to vague muted sensory imput through her first three fingers on her right hand. Physical Therapy Plan Frequency and Duration Frequency of Treatment 2x/Week Plan of Care Start Date 03/04/23 Plan of Care End Date 05/04/23 Therapeutic Interventions Therapeutic Interventions Home Exercise Program,Joint Mobilizations,Manual Therapy, Neuromuscular Re-education, Patient/Caregiver Education, Self-Care/Home Management,Soft Tissue Mobilization, Therapeutic Activities, Therapeutic Exercises Modalities Cold Pack/Ice Massage,Electric Stimulation,Hot Packs Next Visit Focus/Plan Next Note Type Treatment Note Next Visit Plan STM, Shoulder and cervical strengthening, improving activity tolerance, stretching
--- NOTE | 2023-03-04 18:02 | PT.OPPOC ---
Physical, Occupational & Speech Therapy At [facility] Current Diagnoses Radiculopathy, cervical region (03/04/23) Low back pain, unspecified (03/04/23) Visit Care Team Role Provider Type Paolo Cook DO Attending Provider Physician Family Provider Primary Care Provider Referring Provider Specialty: Family Practice Address: [address] [place] [address], [facility] Email: Plan Of Care PT-OP-T Assessment and Plan Start: 03/04/23 17:19 Freq: Status: Active Protocol: Document 03/04/23 16:30 DCW (Rec: 03/04/23 18:01 DCW [id number]) Physical Therapy Assessment Rehab Potential Rehabilitation Potential Good Evaluation Complexity Number of Personal Factors/Comorbidities 0 Number of Body Systems Impaired 3 Clinical Presentation at Evaluation Stable Impairments Impairments Activity Tolerance,Functional Activities,Functional Mobility ,Pain,ROM,Sensation,Soft Tissue Mobility,Strength Goals Two Impairment 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 LTG Duration 05/04/23 One Impairment Pt does not have an appropriate home exercise program Short Term Goal (STG) Pt to be independent and compliant with an appropriate HEP STG Duration 04/04/23 Assessment Summary Assessment Pt presents with signs and symptoms consistent with referring diagnosis. Pt experiencing radicular UE symptoms (numbness/tingling, weakness), likely secondary to cervical disc bulges at C4-5, C5-6, and C6-7. Additionally, pt experiencing moderate tone throughout cervical musculature and right shoulder girdle. Should benefit from skilled therapy focusing on soft tissue mobilization, stretching, strengthening, improving body mechanics, cervical ROM, nerve glides, and joint mobilizations. Is already showing good improvement with radicular symptoms, going from numbness/ tingling to vague muted sensory imput through her first three fingers on her right hand. Physical Therapy Plan Frequency and Duration Frequency of Treatment 2x/Week Plan of Care Start Date 03/04/23 Plan of Care End Date 05/04/23 Therapeutic Interventions Therapeutic Interventions Home Exercise Program,Joint Mobilizations,Manual Therapy, Neuromuscular Re-education, Patient/Caregiver Education, Self-Care/Home Management,Soft Tissue Mobilization, Therapeutic Activities, Therapeutic Exercises Modalities Cold Pack/Ice Massage,Electric Stimulation,Hot Packs Next Visit Focus/Plan Next Note Type Treatment Note Next Visit Plan STM, Shoulder and cervical strengthening, improving activity tolerance, stretching Plan of Care Dates Plan of Care Start Date 03/04/23 Plan of Care End Date 05/04/23 Electronically Signed by: Ahsan Sanz, PT 03/04/23 1253 If you are in agreement with this Plan of Care, please return a signed and dated copy. I have reviewed this Plan of Care and certify that the skilled therapy services above are required to meet the patient?s needs. Physician Signature Date Printed Name and Credentials Clinical Instructor Signature Printed Name and Credentials
--- NOTE | 2023-03-19 16:54 | PT.OTN ---
Current Diagnoses Radiculopathy, cervical region (03/19/23) Low back pain, unspecified (03/19/23) Physical Therapy Treatment Note PT-OP-A Visit Information Start: 03/04/23 17:19 Freq: Status: Active Protocol: Document 03/19/23 15:48 DCW (Rec: 03/19/23 16:53 DCW [id number]) Out-Patient Physical Therapy Visit Information Visit Information Visit Type Treatment Note Visit Start Time 15:48 Visit Stop Time 16:30 Total Visit Minutes 42 Visit Number 2 Number of TOWER DIRECTOR Visits 0 Evaluation Information Evaluation Date 03/04/23 PT-OP-B Current Condition Start: 03/04/23 17:19 Freq: Status: Active Protocol: Document 03/04/23 16:30 DCW (Rec: 03/04/23 17:47 DCW [id number]) Current Condition History of Current Condition Onset Date 10/21/22 Current Complaints R radicular pain/numbness/ tingling History of Current Condition Pt is a 37 year old female presenting with a four month history of right UE radicular symptoms resulting in numbness , weakness, and tingling in her right arm, and specifically into her first, second, and third fingers. EMG nerve conduction study showed evidence of C7-8 nerve root involvement, and cervical MRI showed C4-5, C5-6, and C6-7 disc bulges. Pt notes that she has been experiencing spasming in her right upper trap, lat, and serratus anterior. Was struggling to keep up with typical activities of weight training and yoga due to weakness. Does note that over the past few weeks, the numbness and tingling has been improving, and currently feels more like a diminished, muted sensation. Has been receiving OMT, unsure if it has caused the improvement or not. Prior Treatments and Tests Cervical MRI: IMPRESSION: 1. C4-5, C5-6, and C6-7 broad- based paracentral disc bulges as above which deform the anterior aspect of the cord. No cord signal abnormality noted. 2. Moderate bilateral neural foraminal stenosis at C5-6 and C6-7. 3. Mild canal stenosis at C4-5, C5-6, and C6 -7. 4. Focal kyphosis centered at C5. per Kelsey Baker M.D. on 11/25/2022 Treatment Goals Patient/Caregiver Goals Return to yoga and weight lifting without UE weakness or numbness PT-OP-C Subjective Start: 03/04/23 17:19 Freq: Status: Active Protocol: Document 03/19/23 15:48 DCW (Rec: 03/19/23 16:53 DCW [id number]) OP-PT Subjective Patient Comments Patient Comments I almost feel like I'm pretty much as recovered as I'm going to get, but I feel like I need to learn how to prevent it from happening again. PT-OP-F Manual Assessment Start: 03/04/23 17:19 Freq: Status: Active Protocol: Document 03/04/23 16:30 DCW (Rec: 03/04/23 17:47 DCW [id number]) Manual Assessments Soft Tissue Assessment Soft Tissue Mobility Assessment Moderate tone in right UT, suboccipitals, scalenes, levator, subscap. Significant increase in tone when in an upright seated posture. Joint Mobility Assessment Joint Mobility Assessment Hypomobility in cervical vertebrae, specifically in C5 with tenderness to palpation 2 /4: pain with wincing. PT-OP-K Range of Motion Start: 03/04/23 17:19 Freq: Status: Active Protocol: Document 03/04/23 16:30 DCW (Rec: 03/04/23 17:47 DCW [id number]) Cervical Spine Range of Motion Cervical Spine Active Degrees Testing Position Sitting Flexion 32 Extension 55 Rotation Left 65 Rotation Right 65 Lateral Flexion Left 35 Lateral Flexion Right 20 ROM Limitations Soft Tissue Tightness,Muscle Tone PT-OP-L Special Tests Start: 03/04/23 17:19 Freq: Status: Active Protocol: Document 03/04/23 16:30 DCW (Rec: 03/04/23 17:47 DCW [id number]) Special Tests Cervical Spine Special Tests Passive Neck Flexion Test Results Complaint of suboccipital tightness Alar Ligament Test Results Negative Slump Test Results Negative Traction Test Results Negative Spurling's Test Test Results Negative Foraminal Compression Test Results Negative PT-OP-M Strength Start: 03/04/23 17:19 Freq: Status: Active Protocol: Document 03/04/23 16:30 DCW (Rec: 03/04/23 17:47 DCW [id number]) Shoulder Strength Shoulder Manual Muscle Testing Right Flexion 4 Good Abduction (C5) 5 Normal External Rotation 4 Good Internal Rotation 5 Normal Left Flexion 5 Normal Abduction (C5) 5 Normal External Rotation 5 Normal Internal Rotation 5 Normal Hand Hospice Executive Director/Pinch Strength Hand Dominance Hand Dominance Right Hand Strength Right Hospice Executive Director (lbs) 68.3 Comments Three trial average (80, 65, 60) Left Hospice Executive Director (lbs) 61.7 Comments Three trial average (70, 60, 55) PT-OP-Q Treatments Start: 03/04/23 17:19 Freq: Status: Active Protocol: Document 03/19/23 15:48 DCW (Rec: 03/19/23 16:53 DCW [id number]) Therapeutic Exercises Supine Exercises Chin Tuck Supine Exercise Name Chin Tuck/Head lift Sitting Exercises Isometric Sitting Exercise Name Isometric cervical strengthening Comments Extension, Lateral flexion, rotation Chin tuck Sitting Exercise Name Seated chin tuck Manual Therapy Treatment Soft Tissue Mobilization Paraspinals Body Location UTs, Scalenes, Levator, SCM Mobilization Type Sustained Pressure,Trigger Point Release Intensity/Depth Moderate Body Position Hooklying Manual Traction Cervical Details Cervical traction Body Position Hooklying PT-OP-T Assessment and Plan Start: 03/04/23 17:19 Freq: Status: Active Protocol: Document 03/19/23 15:48 DCW (Rec: 03/19/23 16:53 DCW [id number]) Physical Therapy Assessment Impairments Impairments Activity Tolerance,Functional Activities,Functional Mobility ,Pain,ROM,Sensation,Soft Tissue Mobility,Strength Goals Two Impairment 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 LTG Duration 05/04/23 One Impairment Pt does not have an appropriate home exercise program Short Term Goal (STG) Pt to be independent and compliant with an appropriate HEP STG Duration 04/04/23 Assessment Summary Assessment Pt responded very well to strengthening and STM, feeling like she is less symptomatic overall. Will likely continue to progress with increasing cervical mobility and strengthening to decrease tone . Physical Therapy Plan Frequency and Duration Frequency of Treatment 2x/Week Plan of Care Start Date 03/04/23 Plan of Care End Date 05/04/23 Therapeutic Interventions Therapeutic Interventions Home Exercise Program,Joint Mobilizations,Manual Therapy, Neuromuscular Re-education, Patient/Caregiver Education, Self-Care/Home Management,Soft Tissue Mobilization, Therapeutic Activities, Therapeutic Exercises Modalities Cold Pack/Ice Massage,Electric Stimulation,Hot Packs Next Visit Focus/Plan Next Note Type Treatment Note Next Visit Plan STM, Shoulder and cervical strengthening, improving activity tolerance, stretching
--- NOTE | 2023-03-26 17:20 | PT.OTN ---
Current Diagnoses Radiculopathy, cervical region (03/26/23) Low back pain, unspecified (03/26/23) Physical Therapy Treatment Note PT-OP-A Visit Information Start: 03/04/23 17:19 Freq: Status: Active Protocol: Document 03/26/23 16:33 DCW (Rec: 03/26/23 17:20 DCW [id number]) Out-Patient Physical Therapy Visit Information Visit Information Visit Type Treatment Note Visit Start Time 16:33 Visit Stop Time 17:15 Total Visit Minutes 42 Visit Number 3 Number of CAGE MAKER Visits 0 Evaluation Information Evaluation Date 03/04/23 PT-OP-B Current Condition Start: 03/04/23 17:19 Freq: Status: Active Protocol: Document 03/04/23 16:30 DCW (Rec: 03/04/23 17:47 DCW [id number]) Current Condition History of Current Condition Onset Date 10/21/22 Current Complaints R radicular pain/numbness/ tingling History of Current Condition Pt is a 37 year old female presenting with a four month history of right UE radicular symptoms resulting in numbness , weakness, and tingling in her right arm, and specifically into her first, second, and third fingers. EMG nerve conduction study showed evidence of C7-8 nerve root involvement, and cervical MRI showed C4-5, C5-6, and C6-7 disc bulges. Pt notes that she has been experiencing spasming in her right upper trap, lat, and serratus anterior. Was struggling to keep up with typical activities of weight training and yoga due to weakness. Does note that over the past few weeks, the numbness and tingling has been improving, and currently feels more like a diminished, muted sensation. Has been receiving OMT, unsure if it has caused the improvement or not. Prior Treatments and Tests Cervical MRI: IMPRESSION: 1. C4-5, C5-6, and C6-7 broad- based paracentral disc bulges as above which deform the anterior aspect of the cord. No cord signal abnormality noted. 2. Moderate bilateral neural foraminal stenosis at C5-6 and C6-7. 3. Mild canal stenosis at C4-5, C5-6, and C6 -7. 4. Focal kyphosis centered at C5. per Kelsey Baker M.D. on 11/25/2022 Treatment Goals Patient/Caregiver Goals Return to yoga and weight lifting without UE weakness or numbness PT-OP-C Subjective Start: 03/04/23 17:19 Freq: Status: Active Protocol: Document 03/26/23 16:33 DCW (Rec: 03/26/23 17:20 DCW [id number]) OP-PT Subjective Patient Comments Patient Comments Pt notes she is still not having finger numbness, but still feels like she is overusing her upper trap and SCM. PT-OP-F Manual Assessment Start: 03/04/23 17:19 Freq: Status: Active Protocol: Document 03/04/23 16:30 DCW (Rec: 03/04/23 17:47 DCW [id number]) Manual Assessments Soft Tissue Assessment Soft Tissue Mobility Assessment Moderate tone in right UT, suboccipitals, scalenes, levator, subscap. Significant increase in tone when in an upright seated posture. Joint Mobility Assessment Joint Mobility Assessment Hypomobility in cervical vertebrae, specifically in C5 with tenderness to palpation 2 /4: pain with wincing. PT-OP-K Range of Motion Start: 03/04/23 17:19 Freq: Status: Active Protocol: Document 03/04/23 16:30 DCW (Rec: 03/04/23 17:47 DCW [id number]) Cervical Spine Range of Motion Cervical Spine Active Degrees Testing Position Sitting Flexion 32 Extension 55 Rotation Left 65 Rotation Right 65 Lateral Flexion Left 35 Lateral Flexion Right 20 ROM Limitations Soft Tissue Tightness,Muscle Tone PT-OP-L Special Tests Start: 03/04/23 17:19 Freq: Status: Active Protocol: Document 03/04/23 16:30 DCW (Rec: 03/04/23 17:47 DCW [id number]) Special Tests Cervical Spine Special Tests Passive Neck Flexion Test Results Complaint of suboccipital tightness Alar Ligament Test Results Negative Slump Test Results Negative Traction Test Results Negative Spurling's Test Test Results Negative Foraminal Compression Test Results Negative PT-OP-M Strength Start: 03/04/23 17:19 Freq: Status: Active Protocol: Document 03/04/23 16:30 DCW (Rec: 03/04/23 17:47 DCW [id number]) Shoulder Strength Shoulder Manual Muscle Testing Right Flexion 4 Good Abduction (C5) 5 Normal External Rotation 4 Good Internal Rotation 5 Normal Left Flexion 5 Normal Abduction (C5) 5 Normal External Rotation 5 Normal Internal Rotation 5 Normal Hand [facility] Representative/Pinch Strength Hand Dominance Hand Dominance Right Hand Strength Right [facility] Representative (lbs) 68.3 Comments Three trial average (80, 65, 60) Left [facility] Representative (lbs) 61.7 Comments Three trial average (70, 60, 55) PT-OP-Q Treatments Start: 03/04/23 17:19 Freq: Status: Active Protocol: Document 03/26/23 16:33 DCW (Rec: 03/26/23 17:20 DCW [id number]) Therapeutic Exercises Standing Exercises Pec Stretch Standing Exercise Name Corner stretch Side bilateral Manual Therapy Treatment Soft Tissue Mobilization Paraspinals Body Location UTs, Scalenes, Levator, SCM Mobilization Type Sustained Pressure,Trigger Point Release Intensity/Depth Moderate Body Position Hooklying Manual Traction Cervical Details Cervical traction Body Position Hooklying PT-OP-T Assessment and Plan Start: 03/04/23 17:19 Freq: Status: Active Protocol: Document 03/26/23 16:33 DCW (Rec: 03/26/23 17:20 DCW [id number]) Physical Therapy Assessment Impairments Impairments Activity Tolerance,Functional Activities,Functional Mobility ,Pain,ROM,Sensation,Soft Tissue Mobility,Strength Goals Two Impairment 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 LTG Duration 05/04/23 One Impairment Pt does not have an appropriate home exercise program Short Term Goal (STG) Pt to be independent and compliant with an appropriate HEP STG Duration 04/04/23 Assessment Summary Assessment Pt continues to display fairly significant increased tone along her right neck and shoulder. Does respond well temporarily to STM, but does not seem to have good carry- over week to week. Physical Therapy Plan Frequency and Duration Frequency of Treatment 2x/Week Plan of Care Start Date 03/04/23 Plan of Care End Date 05/04/23 Therapeutic Interventions Therapeutic Interventions Home Exercise Program,Joint Mobilizations,Manual Therapy, Neuromuscular Re-education, Patient/Caregiver Education, Self-Care/Home Management,Soft Tissue Mobilization, Therapeutic Activities, Therapeutic Exercises Modalities Cold Pack/Ice Massage,Electric Stimulation,Hot Packs Next Visit Focus/Plan Next Note Type Treatment Note Next Visit Plan [facility], Shoulder and cervical strengthening, improving activity tolerance, stretching
--- NOTE | 2023-04-09 17:34 | PT.OTN ---
Current Diagnoses Radiculopathy, cervical region (04/09/23) Low back pain, unspecified (04/09/23) Physical Therapy Treatment Note PT-OP-A Visit Information Start: 03/04/23 17:19 Freq: Status: Active Protocol: Document 04/09/23 16:48 DCW (Rec: 04/09/23 17:33 DCW [id number]) Out-Patient Physical Therapy Visit Information Visit Information Visit Type Treatment Note Visit Start Time 16:48 Visit Stop Time 17:30 Total Visit Minutes 42 Visit Number 4 Number of SPRING TESTER Visits 0 Evaluation Information Evaluation Date 03/04/23 PT-OP-B Current Condition Start: 03/04/23 17:19 Freq: Status: Active Protocol: Document 03/04/23 16:30 DCW (Rec: 03/04/23 17:47 DCW [id number]) Current Condition History of Current Condition Onset Date 10/21/22 Current Complaints R radicular pain/numbness/ tingling History of Current Condition Pt is a 37 year old female presenting with a four month history of right UE radicular symptoms resulting in numbness , weakness, and tingling in her right arm, and specifically into her first, second, and third fingers. EMG nerve conduction study showed evidence of C7-8 nerve root involvement, and cervical MRI showed C4-5, C5-6, and C6-7 disc bulges. Pt notes that she has been experiencing spasming in her right upper trap, lat, and serratus anterior. Was struggling to keep up with typical activities of weight training and yoga due to weakness. Does note that over the past few weeks, the numbness and tingling has been improving, and currently feels more like a diminished, muted sensation. Has been receiving OMT, unsure if it has caused the improvement or not. Prior Treatments and Tests Cervical MRI: IMPRESSION: 1. C4-5, C5-6, and C6-7 broad- based paracentral disc bulges as above which deform the anterior aspect of the cord. No cord signal abnormality noted. 2. Moderate bilateral neural foraminal stenosis at C5-6 and C6-7. 3. Mild canal stenosis at C4-5, C5-6, and C6 -7. 4. Focal kyphosis centered at C5. per Kelsey Baker M.D. on 11/25/2022 Treatment Goals Patient/Caregiver Goals Return to yoga and weight lifting without UE weakness or numbness PT-OP-C Subjective Start: 03/04/23 17:19 Freq: Status: Active Protocol: Document 04/09/23 16:48 DCW (Rec: 04/09/23 17:33 DCW [id number]) OP-PT Subjective Patient Comments Patient Comments Performing pec stretch every night, feeling better. Did a shoulder/upper body workout on Friday, feeling better overall. Still experiences a twinge of pain when turning head to right. PT-OP-F Manual Assessment Start: 03/04/23 17:19 Freq: Status: Active Protocol: Document 03/04/23 16:30 DCW (Rec: 03/04/23 17:47 DCW [id number]) Manual Assessments Soft Tissue Assessment Soft Tissue Mobility Assessment Moderate tone in right UT, suboccipitals, scalenes, levator, subscap. Significant increase in tone when in an upright seated posture. Joint Mobility Assessment Joint Mobility Assessment Hypomobility in cervical vertebrae, specifically in C5 with tenderness to palpation 2 /4: pain with wincing. PT-OP-K Range of Motion Start: 03/04/23 17:19 Freq: Status: Active Protocol: Document 03/04/23 16:30 DCW (Rec: 03/04/23 17:47 DCW [id number]) Cervical Spine Range of Motion Cervical Spine Active Degrees Testing Position Sitting Flexion 32 Extension 55 Rotation Left 65 Rotation Right 65 Lateral Flexion Left 35 Lateral Flexion Right 20 ROM Limitations Soft Tissue Tightness,Muscle Tone PT-OP-L Special Tests Start: 03/04/23 17:19 Freq: Status: Active Protocol: Document 03/04/23 16:30 DCW (Rec: 03/04/23 17:47 DCW [id number]) Special Tests Cervical Spine Special Tests Passive Neck Flexion Test Results Complaint of suboccipital tightness Alar Ligament Test Results Negative Slump Test Results Negative Traction Test Results Negative Spurling's Test Test Results Negative Foraminal Compression Test Results Negative PT-OP-M Strength Start: 03/04/23 17:19 Freq: Status: Active Protocol: Document 03/04/23 16:30 DCW (Rec: 03/04/23 17:47 DCW [id number]) Shoulder Strength Shoulder Manual Muscle Testing Right Flexion 4 Good Abduction (C5) 5 Normal External Rotation 4 Good Internal Rotation 5 Normal Left Flexion 5 Normal Abduction (C5) 5 Normal External Rotation 5 Normal Internal Rotation 5 Normal Hand Ink Blender/Pinch Strength Hand Dominance Hand Dominance Right Hand Strength Right Ink Blender (lbs) 68.3 Comments Three trial average (80, 65, 60) Left Ink Blender (lbs) 61.7 Comments Three trial average (70, 60, 55) PT-OP-Q Treatments Start: 03/04/23 17:19 Freq: Status: Active Protocol: Document 04/09/23 16:48 DCW (Rec: 04/09/23 17:33 DC [id number]) Manual Therapy Treatment Soft Tissue Mobilization Paraspinals Body Location UTs, Scalenes, Levator, SCM Mobilization Type Sustained Pressure,Trigger Point Release Intensity/Depth Moderate Body Position Hooklying Manual Traction Cervical Details Cervical traction Body Position Hooklying PT-OP-T Assessment and Plan Start: 03/04/23 17:19 Freq: Status: Active Protocol: Document 04/09/23 16:48 DCW (Rec: 04/09/23 17:33 DCW [id number]) Physical Therapy Assessment Impairments Impairments Activity Tolerance,Functional Activities,Functional Mobility ,Pain,ROM,Sensation,Soft Tissue Mobility,Strength Goals Two Impairment 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 LTG Duration 05/04/23 One Impairment Pt does not have an appropriate home exercise program Short Term Goal (STG) Pt to be independent and compliant with an appropriate HEP STG Duration 04/04/23 Assessment Summary Assessment Pt showing some improvement with tone managment, but still right scalenes negatively affecting functional mobility Physical Therapy Plan Frequency and Duration Frequency of Treatment 2x/Week Plan of Care Start Date 03/04/23 Plan of Care End Date 05/04/23 Therapeutic Interventions Therapeutic Interventions Home Exercise Program,Joint Mobilizations,Manual Therapy, Neuromuscular Re-education, Patient/Caregiver Education, Self-Care/Home Management,Soft Tissue Mobilization, Therapeutic Activities, Therapeutic Exercises Modalities Cold Pack/Ice Massage,Electric Stimulation,Hot Packs Next Visit Focus/Plan Next Note Type Treatment Note Next Visit Plan STM, Shoulder and cervical strengthening, improving activity tolerance, stretching
--- NOTE | 2023-05-05 17:37 | PT.OTN ---
Current Diagnoses Radiculopathy, cervical region (05/05/23) Low back pain, unspecified (05/05/23) Physical Therapy Treatment Note PT-OP-A Visit Information Start: 03/04/23 17:19 Freq: Status: Active Protocol: Document 05/05/23 16:45 DCW (Rec: 05/05/23 17:37 DCW [id number]) Out-Patient Physical Therapy Visit Information Visit Information Visit Type Progress Note Visit Start Time 16:45 Visit Stop Time 17:30 Total Visit Minutes 45 Visit Number 4 Number of MONUMENT ERECTOR Visits 0 Evaluation Information Evaluation Date 03/04/23 PT-OP-B Current Condition Start: 03/04/23 17:19 Freq: Status: Active Protocol: Document 03/04/23 16:30 DCW (Rec: 03/04/23 17:47 DCW [id number]) Current Condition History of Current Condition Onset Date 10/21/22 Current Complaints R radicular pain/numbness/ tingling History of Current Condition Pt is a 37 year old female presenting with a four month history of right UE radicular symptoms resulting in numbness , weakness, and tingling in her right arm, and specifically into her first, second, and third fingers. EMG nerve conduction study showed evidence of C7-8 nerve root involvement, and cervical MRI showed C4-5, C5-6, and C6-7 disc bulges. Pt notes that she has been experiencing spasming in her right upper trap, lat, and serratus anterior. Was struggling to keep up with typical activities of weight training and yoga due to weakness. Does note that over the past few weeks, the numbness and tingling has been improving, and currently feels more like a diminished, muted sensation. Has been receiving OMT, unsure if it has caused the improvement or not. Prior Treatments and Tests Cervical MRI: IMPRESSION: 1. C4-5, C5-6, and C6-7 broad- based paracentral disc bulges as above which deform the anterior aspect of the cord. No cord signal abnormality noted. 2. Moderate bilateral neural foraminal stenosis at C5-6 and C6-7. 3. Mild canal stenosis at C4-5, C5-6, and C6 -7. 4. Focal kyphosis centered at C5. per Kelsey Baker M.D. on 11/25/2022 Treatment Goals Patient/Caregiver Goals Return to yoga and weight lifting without UE weakness or numbness PT-OP-C Subjective Start: 03/04/23 17:19 Freq: Status: Active Protocol: Document 05/05/23 16:45 DCW (Rec: 05/05/23 17:37 DCW [id number]) OP-PT Subjective Patient Comments Patient Comments Notes she has been feeling better thorugh her cervical spine, less symptomatic down her arms. Does note that her hips and low back have been giving her a lot more pain, specifically her lateral hips bilaterally. PT-OP-F Manual Assessment Start: 03/04/23 17:19 Freq: Status: Active Protocol: Document 05/05/23 16:45 DCW (Rec: 05/05/23 17:32 DCW [id number]) Manual Assessments Soft Tissue Assessment Soft Tissue Mobility Assessment Moderate tone in right UT, suboccipitals, scalenes, levator, subscap. Severe tone in bilateral TIB, Hip Flexors, Piriformis PT-OP-K Range of Motion Start: 03/04/23 17:19 Freq: Status: Active Protocol: Document 05/05/23 16:45 DCW (Rec: 05/05/23 17:32 DCW [id number]) Cervical Spine Range of Motion Cervical Spine Active Degrees Testing Position Sitting Flexion 40 Extension 55 Rotation Left 65 Rotation Right 70 Lateral Flexion Left 35 Lateral Flexion Right 30 ROM Limitations Soft Tissue Tightness,Muscle Tone PT-OP-L Special Tests Start: 03/04/23 17:19 Freq: Status: Active Protocol: Document 05/05/23 16:45 DCW (Rec: 05/05/23 17:32 DCW [id number]) Special Tests Lumbar Spine Special Tests Straight Leg Raise Test Results Negative Lateral SI compression Test Results Negative A-P Shearing Test Results Negative PT-OP-M Strength Start: 03/04/23 17:19 Freq: Status: Active Protocol: Document 05/05/23 16:45 DCW (Rec: 05/05/23 17:32 DCW [id number]) Hand Cooperative Manager/Pinch Strength Hand Dominance Hand Dominance Right Hand Strength Right Cooperative Manager (lbs) 60 Comments Three trial average (70, 60, 50) Left Cooperative Manager (lbs) 61.6 Comments Three trial average (65, 60, 60) PT-OP-Q Treatments Start: 03/04/23 17:19 Freq: Status: Active Protocol: Document 05/05/23 16:45 DCW (Rec: 05/05/23 17:37 [facility] [id number]) Therapeutic Exercises Supine Exercises ITB Supine Exercise Name ITB stretch /c strap Side bilateral Roni Stretch Supine Exercise Name Roni Stretch Side bilateral Comments HEP Sitting Exercises Piriformis Sitting Exercise Name Seated Figure-4 Side bilateral PT-OP-T Assessment and Plan Start: 03/04/23 17:19 Freq: Status: Active Protocol: Document 05/05/23 16:45 DCW (Rec: 05/05/23 17:37 [facility] [id number]) Physical Therapy Assessment Impairments Impairments Activity Tolerance,Functional Activities,Functional Mobility ,Pain,ROM,Sensation,Soft Tissue Mobility,Strength Goals Two Impairment 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 LTG Duration 05/04/23 One Impairment Pt does not have an appropriate home exercise program Short Term Goal (STG) Pt to be independent and compliant with an appropriate HEP STG Duration 04/04/23 Assessment Summary Assessment Pt cervical spine improving somewhat, increased ROM in cervical flexion, right rotation, and right side- bending, however decline in right cam specialist strength. Pt's increase in hip pain appears to be associated with hypertonia bilaterally in hip flexors, ITB, and piriformis. Continue to work on strengthening, flexibility, and STM to decrease pain levels and improve mobility. Physical Therapy Plan Frequency and Duration Frequency of Treatment 2x/Week Plan of Care Start Date 05/05/23 Plan of Care End Date 07/06/23 Therapeutic Interventions Therapeutic Interventions Home Exercise Program,Joint Mobilizations,Manual Therapy, Neuromuscular Re-education, Patient/Caregiver Education, Self-Care/Home Management,Soft Tissue Mobilization, Therapeutic Activities, Therapeutic Exercises Modalities Cold Pack/Ice Massage,Electric Stimulation,Hot Packs Next Visit Focus/Plan Next Note Type Treatment Note Next Visit Plan STM, Shoulder and cervical strengthening, improving activity tolerance, stretching
--- NOTE | 2023-05-05 17:54 | PT.OPPN ---
Current Diagnoses Radiculopathy, cervical region (05/05/23) Low back pain, unspecified (05/05/23) Physical Therapy Progress Note PT-OP-A Visit Information Start: 03/04/23 17:19 Freq: Status: Active Protocol: Document 05/05/23 16:45 DCW (Rec: 05/05/23 17:37 DCW [id number]) Out-Patient Physical Therapy Visit Information Visit Information Visit Type Progress Note Visit Start Time 16:45 Visit Stop Time 17:30 Total Visit Minutes 45 Visit Number 4 Number of ROUTE MANAGER Visits 0 Evaluation Information Evaluation Date 03/04/23 PT-OP-B Current Condition Start: 03/04/23 17:19 Freq: Status: Active Protocol: Document 03/04/23 16:30 DCW (Rec: 03/04/23 17:47 DCW [id number]) Current Condition History of Current Condition Onset Date 10/21/22 Current Complaints R radicular pain/numbness/ tingling History of Current Condition Pt is a 37 year old female presenting with a four month history of right UE radicular symptoms resulting in numbness , weakness, and tingling in her right arm, and specifically into her first, second, and third fingers. EMG nerve conduction study showed evidence of C7-8 nerve root involvement, and cervical MRI showed C4-5, C5-6, and C6-7 disc bulges. Pt notes that she has been experiencing spasming in her right upper trap, lat, and serratus anterior. Was struggling to keep up with typical activities of weight training and yoga due to weakness. Does note that over the past few weeks, the numbness and tingling has been improving, and currently feels more like a diminished, muted sensation. Has been receiving OMT, unsure if it has caused the improvement or not. Prior Treatments and Tests Cervical MRI: IMPRESSION: 1. C4-5, C5-6, and C6-7 broad- based paracentral disc bulges as above which deform the anterior aspect of the cord. No cord signal abnormality noted. 2. Moderate bilateral neural foraminal stenosis at C5-6 and C6-7. 3. Mild canal stenosis at C4-5, C5-6, and C6 -7. 4. Focal kyphosis centered at C5. per Kelsey Baker M.D. on 11/25/2022 Treatment Goals Patient/Caregiver Goals Return to yoga and weight lifting without UE weakness or numbness PT-OP-C Subjective Start: 03/04/23 17:19 Freq: Status: Active Protocol: Document 05/05/23 16:45 DCW (Rec: 05/05/23 17:37 DCW [id number]) OP-PT Subjective Patient Comments Patient Comments Notes she has been feeling better thorugh her cervical spine, less symptomatic down her arms. Does note that her hips and low back have been giving her a lot more pain, specifically her lateral hips bilaterally. PT-OP-F Manual Assessment Start: 03/04/23 17:19 Freq: Status: Active Protocol: Document 05/05/23 16:45 DCW (Rec: 05/05/23 17:32 DCW [id number]) Manual Assessments Soft Tissue Assessment Soft Tissue Mobility Assessment Moderate tone in right UT, suboccipitals, scalenes, levator, subscap. Severe tone in bilateral TIB, Hip Flexors, Piriformis PT-OP-K Range of Motion Start: 03/04/23 17:19 Freq: Status: Active Protocol: Document 05/05/23 16:45 DCW (Rec: 05/05/23 17:32 DCW [id number]) Cervical Spine Range of Motion Cervical Spine Active Degrees Testing Position Sitting Flexion 40 Extension 55 Rotation Left 65 Rotation Right 70 Lateral Flexion Left 35 Lateral Flexion Right 30 ROM Limitations Soft Tissue Tightness,Muscle Tone PT-OP-L Special Tests Start: 03/04/23 17:19 Freq: Status: Active Protocol: Document 05/05/23 16:45 DCW (Rec: 05/05/23 17:32 DCW [id number]) Special Tests Lumbar Spine Special Tests Straight Leg Raise Test Results Negative Lateral SI compression Test Results Negative A-P Shearing Test Results Negative PT-OP-M Strength Start: 03/04/23 17:19 Freq: Status: Active Protocol: Document 05/05/23 16:45 DCW (Rec: 05/05/23 17:32 DCW [id number]) Hand Qa Software Test Engineer/Pinch Strength Hand Dominance Hand Dominance Right Hand Strength Right Qa Software Test Engineer (lbs) 60 Comments Three trial average (70, 60, 50) Left Qa Software Test Engineer (lbs) 61.6 Comments Three trial average (65, 60, 60) PT-OP-T Assessment and Plan Start: 03/04/23 17:19 Freq: Status: Active Protocol: Document 05/05/23 16:45 DCW (Rec: 05/05/23 17:37 DCW [id number]) Physical Therapy Assessment Impairments Impairments Activity Tolerance,Functional Activities,Functional Mobility ,Pain,ROM,Sensation,Soft Tissue Mobility,Strength Goals Two Impairment 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 LTG Duration 05/04/23 One Impairment Pt does not have an appropriate home exercise program Short Term Goal (STG) Pt to be independent and compliant with an appropriate HEP STG Duration 04/04/23 Assessment Summary Assessment Pt cervical spine improving somewhat, increased ROM in cervical flexion, right rotation, and right side- bending, however decline in right supervisor grips strength. Pt's increase in hip pain appears to be associated with hypertonia bilaterally in hip flexors, ITB, and piriformis. Cntinue to work on strengthening, flexibility, and STM to decrease pain levels and improve mobility. Physical Therapy Plan Frequency and Duration Frequency of Treatment 2x/Week Plan of Care Start Date 05/05/23 Plan of Care End Date 07/06/23 Therapeutic Interventions Therapeutic Interventions Home Exercise Program,Joint Mobilizations,Manual Therapy, Neuromuscular Re-education, Patient/Caregiver Education, Self-Care/Home Management,Soft Tissue Mobilization, Therapeutic Activities, Therapeutic Exercises Modalities Cold Pack/Ice Massage,Electric Stimulation,Hot Packs Next Visit Focus/Plan Next Note Type Treatment Note Next Visit Plan STM, Shoulder and cervical strengthening, improving activity tolerance, stretching
--- NOTE | 2023-05-05 17:54 | PT.OPPOC ---
Physical, Occupational & Speech Therapy At [facility] Current Diagnoses Radiculopathy, cervical region (05/05/23) Low back pain, unspecified (05/05/23) Visit Care Team Role Provider Type Paolo Cook DO Attending Provider Physician Family Provider Primary Care Provider Referring Provider Specialty: Family Practice Address: [address] [place] [address], [facility] Email: Plan Of Care PT-OP-T Assessment and Plan Start: 03/04/23 17:19 Freq: Status: Active Protocol: Document 05/05/23 16:45 DCW (Rec: 05/05/23 17:37 DCW [id number]) Physical Therapy Assessment Impairments Impairments Activity Tolerance,Functional Activities,Functional Mobility ,Pain,ROM,Sensation,Soft Tissue Mobility,Strength Goals Two Impairment 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 LTG Duration 05/04/23 One Impairment Pt does not have an appropriate home exercise program Short Term Goal (STG) Pt to be independent and compliant with an appropriate HEP STG Duration 04/04/23 Assessment Summary Assessment Pt cervical spine improving somewhat, increased ROM in cervical flexion, right rotation, and right side- bending, however decline in right dials supervisor strength. Pt's increase in hip pain appears to be associated with hypertonia bilaterally in hip flexors, ITB, and piriformis. Cntinue to work on strengthening, flexibility, and STM to decrease pain levels and improve mobility. Physical Therapy Plan Frequency and Duration Frequency of Treatment 2x/Week Plan of Care Start Date 05/05/23 Plan of Care End Date 07/06/23 Therapeutic Interventions Therapeutic Interventions Home Exercise Program,Joint Mobilizations,Manual Therapy, Neuromuscular Re-education, Patient/Caregiver Education, Self-Care/Home Management,Soft Tissue Mobilization, Therapeutic Activities, Therapeutic Exercises Modalities Cold Pack/Ice Massage,Electric Stimulation,Hot Packs Next Visit Focus/Plan Next Note Type Treatment Note Next Visit Plan STM, Shoulder and cervical strengthening, improving activity tolerance, stretching Plan of Care Dates Plan of Care Start Date 05/05/23 Plan of Care End Date 07/06/23 Electronically Signed by: Ahsan Sanz, PT 05/05/23 1437 If you are in agreement with this Plan of Care, please return a signed and dated copy. I have reviewed this Plan of Care and certify that the skilled therapy services above are required to meet the patient?s needs. Physician Signature Date Printed Name and Credentials Clinical Instructor Signature Printed Name and Credentials
--- NOTE | 2023-06-23 17:29 | PT.OTN ---
Current Diagnoses Radiculopathy, cervical region (06/23/23) Low back pain, unspecified (06/23/23) Physical Therapy Treatment Note PT-OP-A Visit Information Start: 03/04/23 17:19 Freq: Status: Active Protocol: Document 06/23/23 16:48 DCW (Rec: 06/23/23 17:29 DCW [id number]) Out-Patient Physical Therapy Visit Information Visit Information Visit Type Treatment Note Visit Start Time 16:48 Visit Stop Time 17:30 Visit Number 6 Number of WANIGAN CLERK Visits 0 Evaluation Information Evaluation Date 03/04/23 PT-OP-B Current Condition Start: 03/04/23 17:19 Freq: Status: Active Protocol: Document 03/04/23 16:30 DCW (Rec: 03/04/23 17:47 DCW [id number]) Current Condition History of Current Condition Onset Date 10/21/22 Current Complaints R radicular pain/numbness/ tingling History of Current Condition Pt is a 37 year old female presenting with a four month history of right UE radicular symptoms resulting in numbness , weakness, and tingling in her right arm, and specifically into her first, second, and third fingers. EMG nerve conduction study showed evidence of C7-8 nerve root involvement, and cervical MRI showed C4-5, C5-6, and C6-7 disc bulges. Pt notes that she has been experiencing spasming in her right upper trap, lat, and serratus anterior. Was struggling to keep up with typical activities of weight training and yoga due to weakness. Does note that over the past few weeks, the numbness and tingling has been improving, and currently feels more like a diminished, muted sensation. Has been receiving OMT, unsure if it has caused the improvement or not. Prior Treatments and Tests Cervical MRI: IMPRESSION: 1. C4-5, C5-6, and C6-7 broad- based paracentral disc bulges as above which deform the anterior aspect of the cord. No cord signal abnormality noted. 2. Moderate bilateral neural foraminal stenosis at C5-6 and C6-7. 3. Mild canal stenosis at C4-5, C5-6, and C6 -7. 4. Focal kyphosis centered at C5. per Kelsey Baker M.D. on 11/25/2022 Treatment Goals Patient/Caregiver Goals Return to yoga and weight lifting without UE weakness or numbness PT-OP-C Subjective Start: 03/04/23 17:19 Freq: Status: Active Protocol: Document 06/23/23 16:48 DCW (Rec: 06/23/23 17:29 DCW [id number]) OP-PT Subjective Patient Comments Patient Comments Pt notes her hip flexors continue to be very stubborn, but her piriformis and neck are all quite a bit better. PT-OP-F Manual Assessment Start: 03/04/23 17:19 Freq: Status: Active Protocol: Document 05/05/23 16:45 DCW (Rec: 05/05/23 17:32 DCW [id number]) Manual Assessments Soft Tissue Assessment Soft Tissue Mobility Assessment Moderate tone in right UT, suboccipitals, scalenes, levator, subscap. Severe tone in bilateral TIB, Hip Flexors, Piriformis PT-OP-K Range of Motion Start: 03/04/23 17:19 Freq: Status: Active Protocol: Document 05/05/23 16:45 DCW (Rec: 05/05/23 17:32 DCW [id number]) Cervical Spine Range of Motion Cervical Spine Active Degrees Testing Position Sitting Flexion 40 Extension 55 Rotation Left 65 Rotation Right 70 Lateral Flexion Left 35 Lateral Flexion Right 30 ROM Limitations Soft Tissue Tightness,Muscle Tone PT-OP-L Special Tests Start: 03/04/23 17:19 Freq: Status: Active Protocol: Document 05/05/23 16:45 DCW (Rec: 05/05/23 17:32 DCW [id number]) Special Tests Lumbar Spine Special Tests Straight Leg Raise Test Results Negative Lateral SI compression Test Results Negative A-P Shearing Test Results Negative PT-OP-M Strength Start: 03/04/23 17:19 Freq: Status: Active Protocol: Document 05/05/23 16:45 DCW (Rec: 05/05/23 17:32 DCW [id number]) Hand Banking Analyst/Pinch Strength Hand Dominance Hand Dominance Right Hand Strength Right Banking Analyst (lbs) 60 Comments Three trial average (70, 60, 50) Left Banking Analyst (lbs) 61.6 Comments Three trial average (65, 60, 60) PT-OP-Q Treatments Start: 03/04/23 17:19 Freq: Status: Active Protocol: Document 06/23/23 16:48 DCW (Rec: 06/23/23 17:29 [facility] [id number]) Therapeutic Exercises Supine Exercises Figure-4 Supine Exercise Name Figure-4 stretch Side bilateral ITB Supine Exercise Name ITB stretch /c strap Side bilateral Roni Stretch Supine Exercise Name Roni Stretch Side bilateral Comments HEP Manual Therapy Treatment Soft Tissue Mobilization Hip Flexors Body Location R Hip Flexors Mobilization Type Strumming,Sustained Pressure Body Position Hooklying Paraspinals Body Location UTs, Scalenes, Levator, SCM Mobilization Type Sustained Pressure,Trigger Point Release Intensity/Depth Moderate Body Position Hooklying PT-OP-T Assessment and Plan Start: 03/04/23 17:19 Freq: Status: Active Protocol: Document 06/23/23 16:48 DCW (Rec: 06/23/23 17:29 DC [id number]) Physical Therapy Assessment Impairments Impairments Activity Tolerance,Functional Activities,Functional Mobility ,Pain,ROM,Sensation,Soft Tissue Mobility,Strength Goals Two Impairment 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 LTG Duration 05/04/23 One Impairment Pt does not have an appropriate home exercise program Short Term Goal (STG) Pt to be independent and compliant with an appropriate HEP STG Duration 04/04/23 Assessment Summary Assessment Showing continued improvement with muscle tone along cervical paraspinals and hips. Good response to stretching and STM today. Continue to focus on improving soft tissue mobility and flexibility. Physical Therapy Plan Frequency and Duration Frequency of Treatment 2x/Week Plan of Care Start Date 05/05/23 Plan of Care End Date 07/06/23 Therapeutic Interventions Therapeutic Interventions Home Exercise Program,Joint Mobilizations,Manual Therapy, Neuromuscular Re-education, Patient/Caregiver Education, Self-Care/Home Management,Soft Tissue Mobilization, Therapeutic Activities, Therapeutic Exercises Modalities Cold Pack/Ice Massage,Electric Stimulation,Hot Packs Next Visit Focus/Plan Next Note Type Treatment Note Next Visit Plan STM, Shoulder and cervical strengthening, improving activity tolerance, stretching
--- NOTE | 2023-06-26 17:38 | PT.OTN ---
Current Diagnoses Radiculopathy, cervical region (06/26/23) Low back pain, unspecified (06/26/23) Physical Therapy Treatment Note PT-OP-A Visit Information Start: 03/04/23 17:19 Freq: Status: Active Protocol: Document 06/26/23 16:50 DCW (Rec: 06/26/23 17:38 DCW [id number]) Out-Patient Physical Therapy Visit Information Visit Information Visit Type Treatment Note Visit Start Time 16:50 Visit Stop Time 17:30 Visit Number 6 Number of MOTOR DRIVER Visits 0 Evaluation Information Evaluation Date 03/04/23 PT-OP-B Current Condition Start: 03/04/23 17:19 Freq: Status: Active Protocol: Document 03/04/23 16:30 DCW (Rec: 03/04/23 17:47 DCW [id number]) Current Condition History of Current Condition Onset Date 10/21/22 Current Complaints R radicular pain/numbness/ tingling History of Current Condition Pt is a 37 year old female presenting with a four month history of right UE radicular symptoms resulting in numbness , weakness, and tingling in her right arm, and specifically into her first, second, and third fingers. EMG nerve conduction study showed evidence of C7-8 nerve root involvement, and cervical MRI showed C4-5, C5-6, and C6-7 disc bulges. Pt notes that she has been experiencing spasming in her right upper trap, lat, and serratus anterior. Was struggling to keep up with typical activities of weight training and yoga due to weakness. Does note that over the past few weeks, the numbness and tingling has been improving, and currently feels more like a diminished, muted sensation. Has been receiving OMT, unsure if it has caused the improvement or not. Prior Treatments and Tests Cervical MRI: IMPRESSION: 1. C4-5, C5-6, and C6-7 broad- based paracentral disc bulges as above which deform the anterior aspect of the cord. No cord signal abnormality noted. 2. Moderate bilateral neural foraminal stenosis at C5-6 and C6-7. 3. Mild canal stenosis at C4-5, C5-6, and C6 -7. 4. Focal kyphosis centered at C5. per Kelsey Baker M.D. on 11/25/2022 Treatment Goals Patient/Caregiver Goals Return to yoga and weight lifting without UE weakness or numbness PT-OP-C Subjective Start: 03/04/23 17:19 Freq: Status: Active Protocol: Document 06/26/23 16:50 DCW (Rec: 06/26/23 17:38 DCW [id number]) OP-PT Subjective Patient Comments Patient Comments Pt notes her neck has been tender, but no increase in radicular symptoms. PT-OP-F Manual Assessment Start: 03/04/23 17:19 Freq: Status: Active Protocol: Document 05/05/23 16:45 DCW (Rec: 05/05/23 17:32 DCW [id number]) Manual Assessments Soft Tissue Assessment Soft Tissue Mobility Assessment Moderate tone in right UT, suboccipitals, scalenes, levator, subscap. Severe tone in bilateral TIB, Hip Flexors, Piriformis PT-OP-K Range of Motion Start: 03/04/23 17:19 Freq: Status: Active Protocol: Document 05/05/23 16:45 DCW (Rec: 05/05/23 17:32 DCW [id number]) Cervical Spine Range of Motion Cervical Spine Active Degrees Testing Position Sitting Flexion 40 Extension 55 Rotation Left 65 Rotation Right 70 Lateral Flexion Left 35 Lateral Flexion Right 30 ROM Limitations Soft Tissue Tightness,Muscle Tone PT-OP-L Special Tests Start: 03/04/23 17:19 Freq: Status: Active Protocol: Document 05/05/23 16:45 DCW (Rec: 05/05/23 17:32 DCW [id number]) Special Tests Lumbar Spine Special Tests Straight Leg Raise Test Results Negative Lateral SI compression Test Results Negative A-P Shearing Test Results Negative PT-OP-M Strength Start: 03/04/23 17:19 Freq: Status: Active Protocol: Document 05/05/23 16:45 DCW (Rec: 05/05/23 17:32 DCW [id number]) Hand Percher/Pinch Strength Hand Dominance Hand Dominance Right Hand Strength Right Percher (lbs) 60 Comments Three trial average (70, 60, 50) Left Percher (lbs) 61.6 Comments Three trial average (65, 60, 60) PT-OP-Q Treatments Start: 03/04/23 17:19 Freq: Status: Active Protocol: Document 06/26/23 16:50 DCW (Rec: 06/26/23 17:38 DC [id number]) Manual Therapy Treatment Soft Tissue Mobilization Paraspinals Body Location UTs, Scalenes, Levator, SCM Mobilization Type Sustained Pressure,Trigger Point Release Intensity/Depth Moderate Body Position Hooklying Joint Mobilizations Cervical Joint C3, C4, C5 Direction P->A Grade II Body Position Hooklying Manual Traction Cervical Details Cervical traction Body Position Hooklying PT-OP-T Assessment and Plan Start: 03/04/23 17:19 Freq: Status: Active Protocol: Document 06/26/23 16:50 DCW (Rec: 06/26/23 17:38 DC [id number]) Physical Therapy Assessment Impairments Impairments Activity Tolerance,Functional Activities,Functional Mobility ,Pain,ROM,Sensation,Soft Tissue Mobility,Strength Goals Two Impairment 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 LTG Duration 05/04/23 One Impairment Pt does not have an appropriate home exercise program Short Term Goal (STG) Pt to be independent and compliant with an appropriate HEP STG Duration 04/04/23 Assessment Summary Assessment Increased right-sided cervical tone today compared to last visit, initially more restricted cervical mobility, good response to manual treatment today. Physical Therapy Plan Frequency and Duration Frequency of Treatment 2x/Week Plan of Care Start Date 05/05/23 Plan of Care End Date 07/06/23 Therapeutic Interventions Therapeutic Interventions Home Exercise Program,Joint Mobilizations,Manual Therapy, Neuromuscular Re-education, Patient/Caregiver Education, Self-Care/Home Management,Soft Tissue Mobilization, Therapeutic Activities, Therapeutic Exercises Modalities Cold Pack/Ice Massage,Electric Stimulation,Hot Packs Next Visit Focus/Plan Next Note Type Treatment Note Next Visit Plan STM, Shoulder and cervical strengthening, improving activity tolerance, stretching
--- NOTE | 2023-07-01 17:46 | PT.OTN ---
Current Diagnoses Radiculopathy, cervical region (07/01/23) Low back pain, unspecified (07/01/23) Physical Therapy Treatment Note PT-OP-A Visit Information Start: 03/04/23 17:19 Freq: Status: Active Protocol: Document 07/01/23 16:51 DCW (Rec: 07/01/23 17:46 DCW [id number]) Out-Patient Physical Therapy Visit Information Visit Information Visit Type Treatment Note Visit Start Time 16:51 Visit Stop Time 17:30 Visit Number 7 Number of WATCH BAND ASSEMBLER Visits 0 Evaluation Information Evaluation Date 03/04/23 PT-OP-B Current Condition Start: 03/04/23 17:19 Freq: Status: Active Protocol: Document 03/04/23 16:30 DCW (Rec: 03/04/23 17:47 DCW [id number]) Current Condition History of Current Condition Onset Date 10/21/22 Current Complaints R radicular pain/numbness/ tingling History of Current Condition Pt is a 37 year old female presenting with a four month history of right UE radicular symptoms resulting in numbness , weakness, and tingling in her right arm, and specifically into her first, second, and third fingers. EMG nerve conduction study showed evidence of C7-8 nerve root involvement, and cervical MRI showed C4-5, C5-6, and C6-7 disc bulges. Pt notes that she has been experiencing spasming in her right upper trap, lat, and serratus anterior. Was struggling to keep up with typical activities of weight training and yoga due to weakness. Does note that over the past few weeks, the numbness and tingling has been improving, and currently feels more like a diminished, muted sensation. Has been receiving OMT, unsure if it has caused the improvement or not. Prior Treatments and Tests Cervical MRI: IMPRESSION: 1. C4-5, C5-6, and C6-7 broad- based paracentral disc bulges as above which deform the anterior aspect of the cord. No cord signal abnormality noted. 2. Moderate bilateral neural foraminal stenosis at C5-6 and C6-7. 3. Mild canal stenosis at C4-5, C5-6, and C6 -7. 4. Focal kyphosis centered at C5. per Kelsey Baker M.D. on 11/25/2022 Treatment Goals Patient/Caregiver Goals Return to yoga and weight lifting without UE weakness or numbness PT-OP-C Subjective Start: 03/04/23 17:19 Freq: Status: Active Protocol: Document 07/01/23 16:51 DCW (Rec: 07/01/23 17:46 DCW [id number]) OP-PT Subjective Patient Comments Patient Comments Did a full body workout yesterday, has been stretching out her hip flexor daily, which feels good at the time, but keeps tightening up between stretching. PT-OP-F Manual Assessment Start: 03/04/23 17:19 Freq: Status: Active Protocol: Document 05/05/23 16:45 DCW (Rec: 05/05/23 17:32 DCW [id number]) Manual Assessments Soft Tissue Assessment Soft Tissue Mobility Assessment Moderate tone in right UT, suboccipitals, scalenes, levator, subscap. Severe tone in bilateral TIB, Hip Flexors, Piriformis PT-OP-K Range of Motion Start: 03/04/23 17:19 Freq: Status: Active Protocol: Document 05/05/23 16:45 DCW (Rec: 05/05/23 17:32 DCW [id number]) Cervical Spine Range of Motion Cervical Spine Active Degrees Testing Position Sitting Flexion 40 Extension 55 Rotation Left 65 Rotation Right 70 Lateral Flexion Left 35 Lateral Flexion Right 30 ROM Limitations Soft Tissue Tightness,Muscle Tone PT-OP-L Special Tests Start: 03/04/23 17:19 Freq: Status: Active Protocol: Document 05/05/23 16:45 DCW (Rec: 05/05/23 17:32 DCW [id number]) Special Tests Lumbar Spine Special Tests Straight Leg Raise Test Results Negative Lateral SI compression Test Results Negative A-P Shearing Test Results Negative PT-OP-M Strength Start: 03/04/23 17:19 Freq: Status: Active Protocol: Document 05/05/23 16:45 DCW (Rec: 05/05/23 17:32 DCW [id number]) Hand Bead Preparer/Pinch Strength Hand Dominance Hand Dominance Right Hand Strength Right Bead Preparer (lbs) 60 Comments Three trial average (70, 60, 50) Left Bead Preparer (lbs) 61.6 Comments Three trial average (65, 60, 60) PT-OP-Q Treatments Start: 03/04/23 17:19 Freq: Status: Active Protocol: Document 07/01/23 16:51 DCW (Rec: 07/01/23 17:46 DCW [id number]) Gym Equipment Therapeutic Ball Bridging Exercise Details Bridging /c feet on ball Ball Size/Color Red - 55 cm Body Position Supine Comments with and without Hamstring Curls Therapeutic Exercises Supine Exercises Bridging Supine Exercise Name Double leg, Single leg bridging Figure-4 Supine Exercise Name Figure-4 stretch Side bilateral Roni Stretch Supine Exercise Name Roni Stretch Side bilateral Manual Therapy Treatment Soft Tissue Mobilization Hip Flexors Body Location R Hip Flexors Mobilization Type Strumming,Sustained Pressure Body Position Hooklying Joint Mobilizations Hip Joint R hip traction /c strap Direction Lateral, Inferior Grade IV Body Position Hooklying PT-OP-T Assessment and Plan Start: 03/04/23 17:19 Freq: Status: Active Protocol: Document 07/01/23 16:51 DCW (Rec: 07/01/23 17:46 DCW [id number]) Physical Therapy Assessment Impairments Impairments Activity Tolerance,Functional Activities,Functional Mobility ,Pain,ROM,Sensation,Soft Tissue Mobility,Strength Goals Two Impairment 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 LTG Duration 05/04/23 One Impairment Pt does not have an appropriate home exercise program Short Term Goal (STG) Pt to be independent and compliant with an appropriate HEP STG Duration 04/04/23 Assessment Summary Assessment Pt noted significant improvement with anterior hip tightness and sensation of weakness in >90? flexion following manual hip traction. Did trial self-traction using strap and stable post with varied results. Good response to bridging today. Physical Therapy Plan Frequency and Duration Frequency of Treatment 2x/Week Plan of Care Start Date 05/05/23 Plan of Care End Date 07/06/23 Therapeutic Interventions Therapeutic Interventions Home Exercise Program,Joint Mobilizations,Manual Therapy, Neuromuscular Re-education, Patient/Caregiver Education, Self-Care/Home Management,Soft Tissue Mobilization, Therapeutic Activities, Therapeutic Exercises Modalities Cold Pack/Ice Massage,Electric Stimulation,Hot Packs Next Visit Focus/Plan Next Note Type Treatment Note Next Visit Plan STM, Shoulder and cervical strengthening, improving activity tolerance, stretching
--- NOTE | 2023-07-03 17:31 | PT.OTN ---
Current Diagnoses Radiculopathy, cervical region (07/03/23) Low back pain, unspecified (07/03/23) Physical Therapy Treatment Note PT-OP-A Visit Information Start: 03/04/23 17:19 Freq: Status: Active Protocol: Document 07/03/23 16:47 DCW (Rec: 07/03/23 17:31 DCW [id number]) Out-Patient Physical Therapy Visit Information Visit Information Visit Type Treatment Note Visit Start Time 16:47 Visit Stop Time 17:30 Visit Number 8 Number of CERTIFIED MASTER SAFECRACKER Visits 0 Evaluation Information Evaluation Date 03/04/23 PT-OP-B Current Condition Start: 03/04/23 17:19 Freq: Status: Active Protocol: Document 03/04/23 16:30 DCW (Rec: 03/04/23 17:47 DCW [id number]) Current Condition History of Current Condition Onset Date 10/21/22 Current Complaints R radicular pain/numbness/ tingling History of Current Condition Pt is a 37 year old female presenting with a four month history of right UE radicular symptoms resulting in numbness , weakness, and tingling in her right arm, and specifically into her first, second, and third fingers. EMG nerve conduction study showed evidence of C7-8 nerve root involvement, and cervical MRI showed C4-5, C5-6, and C6-7 disc bulges. Pt notes that she has been experiencing spasming in her right upper trap, lat, and serratus anterior. Was struggling to keep up with typical activities of weight training and yoga due to weakness. Does note that over the past few weeks, the numbness and tingling has been improving, and currently feels more like a diminished, muted sensation. Has been receiving OMT, unsure if it has caused the improvement or not. Prior Treatments and Tests Cervical MRI: IMPRESSION: 1. C4-5, C5-6, and C6-7 broad- based paracentral disc bulges as above which deform the anterior aspect of the cord. No cord signal abnormality noted. 2. Moderate bilateral neural foraminal stenosis at C5-6 and C6-7. 3. Mild canal stenosis at C4-5, C5-6, and C6 -7. 4. Focal kyphosis centered at C5. per Kelsey Baker M.D. on 11/25/2022 Treatment Goals Patient/Caregiver Goals Return to yoga and weight lifting without UE weakness or numbness PT-OP-C Subjective Start: 03/04/23 17:19 Freq: Status: Active Protocol: Document 07/03/23 16:47 DCW (Rec: 07/03/23 17:31 DCW [id number]) OP-PT Subjective Patient Comments Patient Comments I did a hamstring day today, and my legs are sore, but my hip isn't hurting. PT-OP-F Manual Assessment Start: 03/04/23 17:19 Freq: Status: Active Protocol: Document 05/05/23 16:45 DCW (Rec: 05/05/23 17:32 DCW [id number]) Manual Assessments Soft Tissue Assessment Soft Tissue Mobility Assessment Moderate tone in right UT, suboccipitals, scalenes, levator, subscap. Severe tone in bilateral TIB, Hip Flexors, Piriformis PT-OP-K Range of Motion Start: 03/04/23 17:19 Freq: Status: Active Protocol: Document 05/05/23 16:45 DCW (Rec: 05/05/23 17:32 DCW [id number]) Cervical Spine Range of Motion Cervical Spine Active Degrees Testing Position Sitting Flexion 40 Extension 55 Rotation Left 65 Rotation Right 70 Lateral Flexion Left 35 Lateral Flexion Right 30 ROM Limitations Soft Tissue Tightness,Muscle Tone PT-OP-L Special Tests Start: 03/04/23 17:19 Freq: Status: Active Protocol: Document 05/05/23 16:45 DCW (Rec: 05/05/23 17:32 DCW [id number]) Special Tests Lumbar Spine Special Tests Straight Leg Raise Test Results Negative Lateral SI compression Test Results Negative A-P Shearing Test Results Negative PT-OP-M Strength Start: 03/04/23 17:19 Freq: Status: Active Protocol: Document 05/05/23 16:45 DCW (Rec: 05/05/23 17:32 DCW [id number]) Hand Glassworker/Pinch Strength Hand Dominance Hand Dominance Right Hand Strength Right Glassworker (lbs) 60 Comments Three trial average (70, 60, 50) Left Glassworker (lbs) 61.6 Comments Three trial average (65, 60, 60) PT-OP-Q Treatments Start: 03/04/23 17:19 Freq: Status: Active Protocol: Document 07/03/23 16:47 DCW (Rec: 07/03/23 17:31 DC [id number]) Manual Therapy Treatment Soft Tissue Mobilization Hip Flexors Body Location R Hip Flexors Mobilization Type Strumming,Sustained Pressure Body Position Hooklying Paraspinals Body Location UTs, Scalenes, Levator, SCM Mobilization Type Sustained Pressure,Trigger Point Release Intensity/Depth Moderate Body Position Hooklying Joint Mobilizations Hip Joint R hip traction /c strap Direction Lateral, Inferior Grade IV Body Position Hooklying PT-OP-T Assessment and Plan Start: 03/04/23 17:19 Freq: Status: Active Protocol: Document 07/03/23 16:47 DCW (Rec: 07/03/23 17:31 DC [id number]) Physical Therapy Assessment Impairments Impairments Activity Tolerance,Functional Activities,Functional Mobility ,Pain,ROM,Sensation,Soft Tissue Mobility,Strength Goals Two Impairment 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 LTG Duration 05/04/23 One Impairment Pt does not have an appropriate home exercise program Short Term Goal (STG) Pt to be independent and compliant with an appropriate HEP STG Duration 04/04/23 Assessment Summary Assessment Continues to demonstrate improvement in anterior hip pain and pinching sensation following hip traction. Still presents with right-sided cervical tightness, but does appear to be improving. Physical Therapy Plan Frequency and Duration Frequency of Treatment 2x/Week Plan of Care Start Date 05/05/23 Plan of Care End Date 07/06/23 Therapeutic Interventions Therapeutic Interventions Home Exercise Program,Joint Mobilizations,Manual Therapy, Neuromuscular Re-education, Patient/Caregiver Education, Self-Care/Home Management,Soft Tissue Mobilization, Therapeutic Activities, Therapeutic Exercises Modalities Cold Pack/Ice Massage,Electric Stimulation,Hot Packs Next Visit Focus/Plan Next Note Type Progress Note Next Visit Plan STM, Shoulder and cervical strengthening, improving activity tolerance, stretching
--- NOTE | 2023-07-07 17:33 | PT.OTN ---
Current Diagnoses Radiculopathy, cervical region (07/07/23) Low back pain, unspecified (07/07/23) Physical Therapy Treatment Note PT-OP-A Visit Information Start: 03/04/23 17:19 Freq: Status: Active Protocol: Document 07/07/23 16:46 DCW (Rec: 07/07/23 17:33 DCW [id number]) Out-Patient Physical Therapy Visit Information Visit Information Visit Type Treatment Note Visit Start Time 16:46 Visit Stop Time 17:30 Visit Number 9 Number of FAMILY NURSE Visits 0 Evaluation Information Evaluation Date 03/04/23 PT-OP-B Current Condition Start: 03/04/23 17:19 Freq: Status: Active Protocol: Document 03/04/23 16:30 DCW (Rec: 03/04/23 17:47 DCW [id number]) Current Condition History of Current Condition Onset Date 10/21/22 Current Complaints R radicular pain/numbness/ tingling History of Current Condition Pt is a 37 year old female presenting with a four month history of right UE radicular symptoms resulting in numbness , weakness, and tingling in her right arm, and specifically into her first, second, and third fingers. EMG nerve conduction study showed evidence of C7-8 nerve root involvement, and cervical MRI showed C4-5, C5-6, and C6-7 disc bulges. Pt notes that she has been experiencing spasming in her right upper trap, lat, and serratus anterior. Was struggling to keep up with typical activities of weight training and yoga due to weakness. Does note that over the past few weeks, the numbness and tingling has been improving, and currently feels more like a diminished, muted sensation. Has been receiving OMT, unsure if it has caused the improvement or not. Prior Treatments and Tests Cervical MRI: IMPRESSION: 1. C4-5, C5-6, and C6-7 broad- based paracentral disc bulges as above which deform the anterior aspect of the cord. No cord signal abnormality noted. 2. Moderate bilateral neural foraminal stenosis at C5-6 and C6-7. 3. Mild canal stenosis at C4-5, C5-6, and C6 -7. 4. Focal kyphosis centered at C5. per Kelsey Baker M.D. on 11/25/2022 Treatment Goals Patient/Caregiver Goals Return to yoga and weight lifting without UE weakness or numbness PT-OP-C Subjective Start: 03/04/23 17:19 Freq: Status: Active Protocol: Document 07/07/23 16:46 DCW (Rec: 07/07/23 17:33 DCW [id number]) OP-PT Subjective Patient Comments Patient Comments Pt feeling better overall, had not had recurrence of radicular symptoms PT-OP-F Manual Assessment Start: 03/04/23 17:19 Freq: Status: Active Protocol: Document 07/07/23 16:46 DCW (Rec: 07/07/23 17:22 DCW [id number]) Manual Assessments Soft Tissue Assessment Soft Tissue Mobility Assessment Moderate tone in right scalenes, levator, subscap. PT-OP-K Range of Motion Start: 03/04/23 17:19 Freq: Status: Active Protocol: Document 07/07/23 16:46 DCW (Rec: 07/07/23 17:22 DCW [id number]) Cervical Spine Range of Motion Cervical Spine Active Degrees Testing Position Sitting Flexion 65 Extension 60 Rotation Left 80 Rotation Right 80 Lateral Flexion Left 35 Lateral Flexion Right 35 PT-OP-L Special Tests Start: 03/04/23 17:19 Freq: Status: Active Protocol: Document 05/05/23 16:45 DCW (Rec: 05/05/23 17:32 DCW [id number]) Special Tests Lumbar Spine Special Tests Straight Leg Raise Test Results Negative Lateral SI compression Test Results Negative A-P Shearing Test Results Negative PT-OP-M Strength Start: 03/04/23 17:19 Freq: Status: Active Protocol: Document 07/07/23 16:46 DCW (Rec: 07/07/23 17:22 DCW [id number]) Hand Crown Assembly Machine Operator/Pinch Strength Hand Dominance Hand Dominance Right Hand Strength Right Crown Assembly Machine Operator (lbs) 78.3 Comments Three trial average (80, 80, 75) Left Crown Assembly Machine Operator (lbs) 66.67 Comments Three trial average (70, 70, 60) PT-OP-Q Treatments Start: 03/04/23 17:19 Freq: Status: Active Protocol: Document 07/07/23 16:46 DCW (Rec: 07/07/23 17:33 DCW [id number]) Therapeutic Exercises Supine Exercises Chin Tuck Supine Exercise Name Chin Tuck/Head lift Sitting Exercises SCM Sitting Exercise Name SCM/Scalene stretch Side bilateral Manual Therapy Treatment Soft Tissue Mobilization Paraspinals Body Location UTs, Scalenes, Levator, SCM Mobilization Type Sustained Pressure,Trigger Point Release Intensity/Depth Moderate Body Position Hooklying PT-OP-T Assessment and Plan Start: 03/04/23 17:19 Freq: Status: Active Protocol: Document 07/07/23 16:46 DCW (Rec: 07/07/23 17:33 DCW [id number]) Physical Therapy Assessment Impairments Impairments Activity Tolerance,Functional Activities,Functional Mobility ,Pain,ROM,Sensation,Soft Tissue Mobility,Strength Goals Two Impairment 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 LTG Duration Met One Impairment Pt does not have an appropriate home exercise program Short Term Goal (STG) Pt to be independent and compliant with an appropriate HEP STG Duration 07/24/23 Assessment Summary Assessment Great improvement overall. No longer experiencing radicular symptoms into right arm. Significant improvement in cervical ROM, nearing WNL. Likely approaching discharge, still demonstrating increased right-sided tone in SCM, Scalenes, and Levator. Will likely benefit from a few more session for additional HEP stretching activities, continued STM, and self-STM instruction Physical Therapy Plan Frequency and Duration Frequency of Treatment 2x/Week Plan of Care Start Date 07/07/23 Plan of Care End Date 07/24/23 Therapeutic Interventions Therapeutic Interventions Home Exercise Program,Joint Mobilizations,Manual Therapy, Neuromuscular Re-education, Patient/Caregiver Education, Self-Care/Home Management,Soft Tissue Mobilization, Therapeutic Activities, Therapeutic Exercises Modalities Cold Pack/Ice Massage,Electric Stimulation,Hot Packs Next Visit Focus/Plan Next Note Type Treatment Note Next Visit Plan STM, Shoulder and cervical strengthening, improving activity tolerance, stretching
--- NOTE | 2023-07-07 17:33 | PT.OPPOC ---
Physical, Occupational & Speech Therapy At [facility] Current Diagnoses Radiculopathy, cervical region (07/07/23) Low back pain, unspecified (07/07/23) Visit Care Team Role Provider Type Paolo Cook DO Attending Provider Physician Family Provider Primary Care Provider Referring Provider Specialty: Family Practice Address: [address] [place] [address], [facility] Email: Plan Of Care PT-OP-T Assessment and Plan Start: 03/04/23 17:19 Freq: Status: Active Protocol: Document 07/07/23 16:46 DCW (Rec: 07/07/23 17:33 DCW [id number]) Physical Therapy Assessment Impairments Impairments Activity Tolerance,Functional Activities,Functional Mobility ,Pain,ROM,Sensation,Soft Tissue Mobility,Strength Goals Two Impairment 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 LTG Duration Met One Impairment Pt does not have an appropriate home exercise program Short Term Goal (STG) Pt to be independent and compliant with an appropriate HEP STG Duration 07/24/23 Assessment Summary Assessment Great improvement overall. No longer experiencing radicular symptoms into right arm. Significant improvement in cervical ROM, nearing WNL. Likely approaching discharge, still demonstrating increased right-sided tone in SCM, Scalenes, and Levator. Will likely benefit from a few more session for additional HEP stretching activities, continued STM, and self-STM instruction Physical Therapy Plan Frequency and Duration Frequency of Treatment 2x/Week Plan of Care Start Date 07/07/23 Plan of Care End Date 07/24/23 Therapeutic Interventions Therapeutic Interventions Home Exercise Program,Joint Mobilizations,Manual Therapy, Neuromuscular Re-education, Patient/Caregiver Education, Self-Care/Home Management,Soft Tissue Mobilization, Therapeutic Activities, Therapeutic Exercises Modalities Cold Pack/Ice Massage,Electric Stimulation,Hot Packs Next Visit Focus/Plan Next Note Type Treatment Note Next Visit Plan STM, Shoulder and cervical strengthening, improving activity tolerance, stretching Plan of Care Dates Plan of Care Start Date 07/07/23 Plan of Care End Date 07/24/23 Electronically Signed by: Ahsan Sanz, PT 07/07/23 [id number] If you are in agreement with this Plan of Care, please return a signed and dated copy. I have reviewed this Plan of Care and certify that the skilled therapy services above are required to meet the patient?s needs. Physician Signature Date Printed Name and Credentials Clinical Instructor Signature Printed Name and Credentials
--- NOTE | 2023-07-10 17:33 | PT.OTN ---
Current Diagnoses Radiculopathy, cervical region (07/10/23) Low back pain, unspecified (07/10/23) Physical Therapy Treatment Note PT-OP-A Visit Information Start: 03/04/23 17:19 Freq: Status: Active Protocol: Document 07/10/23 16:48 DCW (Rec: 07/10/23 17:33 DCW [id number]) Out-Patient Physical Therapy Visit Information Visit Information Visit Type Treatment Note Visit Start Time 16:48 Visit Stop Time 17:30 Visit Number 10 Number of SADDLE STITCHING MACHINE OPERATOR Visits 0 Evaluation Information Evaluation Date 03/04/23 PT-OP-B Current Condition Start: 03/04/23 17:19 Freq: Status: Active Protocol: Document 03/04/23 16:30 DCW (Rec: 03/04/23 17:47 DCW [id number]) Current Condition History of Current Condition Onset Date 10/21/22 Current Complaints R radicular pain/numbness/ tingling History of Current Condition Pt is a 37 year old female presenting with a four month history of right UE radicular symptoms resulting in numbness , weakness, and tingling in her right arm, and specifically into her first, second, and third fingers. EMG nerve conduction study showed evidence of C7-8 nerve root involvement, and cervical MRI showed C4-5, C5-6, and C6-7 disc bulges. Pt notes that she has been experiencing spasming in her right upper trap, lat, and serratus anterior. Was struggling to keep up with typical activities of weight training and yoga due to weakness. Does note that over the past few weeks, the numbness and tingling has been improving, and currently feels more like a diminished, muted sensation. Has been receiving OMT, unsure if it has caused the improvement or not. Prior Treatments and Tests Cervical MRI: IMPRESSION: 1. C4-5, C5-6, and C6-7 broad- based paracentral disc bulges as above which deform the anterior aspect of the cord. No cord signal abnormality noted. 2. Moderate bilateral neural foraminal stenosis at C5-6 and C6-7. 3. Mild canal stenosis at C4-5, C5-6, and C6 -7. 4. Focal kyphosis centered at C5. per Kelsey Baker M.D. on 11/25/2022 Treatment Goals Patient/Caregiver Goals Return to yoga and weight lifting without UE weakness or numbness PT-OP-C Subjective Start: 03/04/23 17:19 Freq: Status: Active Protocol: Document 07/10/23 16:48 DCW (Rec: 07/10/23 17:33 DCW [id number]) OP-PT Subjective Patient Comments Patient Comments Things overall feeling better, hips not doing anything bothersome. Good response to SCM stretch. PT-OP-F Manual Assessment Start: 03/04/23 17:19 Freq: Status: Active Protocol: Document 07/07/23 16:46 DCW (Rec: 07/07/23 17:22 DCW [id number]) Manual Assessments Soft Tissue Assessment Soft Tissue Mobility Assessment Moderate tone in right scalenes, levator, subscap. PT-OP-K Range of Motion Start: 03/04/23 17:19 Freq: Status: Active Protocol: Document 07/07/23 16:46 DCW (Rec: 07/07/23 17:22 DCW [id number]) Cervical Spine Range of Motion Cervical Spine Active Degrees Testing Position Sitting Flexion 65 Extension 60 Rotation Left 80 Rotation Right 80 Lateral Flexion Left 35 Lateral Flexion Right 35 PT-OP-L Special Tests Start: 03/04/23 17:19 Freq: Status: Active Protocol: Document 05/05/23 16:45 DCW (Rec: 05/05/23 17:32 DCW [id number]) Special Tests Lumbar Spine Special Tests Straight Leg Raise Test Results Negative Lateral SI compression Test Results Negative A-P Shearing Test Results Negative PT-OP-M Strength Start: 03/04/23 17:19 Freq: Status: Active Protocol: Document 07/07/23 16:46 DCW (Rec: 07/07/23 17:22 DCW [id number]) Hand Manager Balance/Pinch Strength Hand Dominance Hand Dominance Right Hand Strength Right Manager Balance (lbs) 78.3 Comments Three trial average (80, 80, 75) Left Manager Balance (lbs) 66.67 Comments Three trial average (70, 70, 60) PT-OP-Q Treatments Start: 03/04/23 17:19 Freq: Status: Active Protocol: Document 07/10/23 16:48 DCW (Rec: 07/10/23 17:33 DCW [id number]) Therapeutic Exercises Supine Exercises Serratus Punch Supine Exercise Name serratus Punch Side bilateral Resistance 5# Other Exercises Rows Other Exercise Name Quadruped Rows Side bilateral Resistance 10# Manual Therapy Treatment Soft Tissue Mobilization Paraspinals Body Location UTs, Scalenes, Levator, SCM Mobilization Type Sustained Pressure,Trigger Point Release Intensity/Depth Moderate Body Position Hooklying Joint Mobilizations S/C Joint Sternoclavicular joint mobs Direction Inf Grade III Body Position Supine PT-OP-T Assessment and Plan Start: 03/04/23 17:19 Freq: Status: Active Protocol: Document 07/10/23 16:48 DCW (Rec: 07/10/23 17:33 DCW [id number]) Physical Therapy Assessment Assessment Summary Assessment Decreased left lat recruitment with rows, some discoordination of serratus anterior vs lat during scapulothoracic rhythm. Added serratus activities to improve scapular stability. Physical Therapy Plan Frequency and Duration Frequency of Treatment 2x/Week Plan of Care Start Date 07/07/23 Plan of Care End Date 07/24/23 Therapeutic Interventions Therapeutic Interventions Home Exercise Program,Joint Mobilizations,Manual Therapy, Neuromuscular Re-education, Patient/Caregiver Education, Self-Care/Home Management,Soft Tissue Mobilization, Therapeutic Activities, Therapeutic Exercises Modalities Cold Pack/Ice Massage,Electric Stimulation,Hot Packs Next Visit Focus/Plan Next Note Type Treatment Note Next Visit Plan STM, Shoulder and cervical strengthening, improving activity tolerance, stretching
--- NOTE | 2023-07-14 17:31 | PT.OTN ---
Current Diagnoses Radiculopathy, cervical region (07/14/23) Low back pain, unspecified (07/14/23) Physical Therapy Treatment Note PT-OP-A Visit Information Start: 03/04/23 17:19 Freq: Status: Active Protocol: Document 07/14/23 16:46 DCW (Rec: 07/14/23 17:31 DCW [id number]) Out-Patient Physical Therapy Visit Information Visit Information Visit Type Treatment Note Visit Start Time 16:46 Visit Stop Time 17:30 Visit Number 11 Number of BEAM SAW OPERATOR Visits 0 Evaluation Information Evaluation Date 03/04/23 PT-OP-B Current Condition Start: 03/04/23 17:19 Freq: Status: Active Protocol: Document 03/04/23 16:30 DCW (Rec: 03/04/23 17:47 DCW [id number]) Current Condition History of Current Condition Onset Date 10/21/22 Current Complaints R radicular pain/numbness/ tingling History of Current Condition Pt is a 37 year old female presenting with a four month history of right UE radicular symptoms resulting in numbness , weakness, and tingling in her right arm, and specifically into her first, second, and third fingers. EMG nerve conduction study showed evidence of C7-8 nerve root involvement, and cervical MRI showed C4-5, C5-6, and C6-7 disc bulges. Pt notes that she has been experiencing spasming in her right upper trap, lat, and serratus anterior. Was struggling to keep up with typical activities of weight training and yoga due to weakness. Does note that over the past few weeks, the numbness and tingling has been improving, and currently feels more like a diminished, muted sensation. Has been receiving OMT, unsure if it has caused the improvement or not. Prior Treatments and Tests Cervical MRI: IMPRESSION: 1. C4-5, C5-6, and C6-7 broad- based paracentral disc bulges as above which deform the anterior aspect of the cord. No cord signal abnormality noted. 2. Moderate bilateral neural foraminal stenosis at C5-6 and C6-7. 3. Mild canal stenosis at C4-5, C5-6, and C6 -7. 4. Focal kyphosis centered at C5. per Kelsey Baker M.D. on 11/25/2022 Treatment Goals Patient/Caregiver Goals Return to yoga and weight lifting without UE weakness or numbness PT-OP-C Subjective Start: 03/04/23 17:19 Freq: Status: Active Protocol: Document 07/14/23 16:46 DCW (Rec: 07/14/23 17:31 DCW [id number]) OP-PT Subjective Patient Comments Patient Comments Full body workout Friday, then a full day of being out birding Friday, now feeling a little more tweaked and tight today. PT-OP-F Manual Assessment Start: 03/04/23 17:19 Freq: Status: Active Protocol: Document 07/07/23 16:46 DCW (Rec: 07/07/23 17:22 DCW [id number]) Manual Assessments Soft Tissue Assessment Soft Tissue Mobility Assessment Moderate tone in right scalenes, levator, subscap. PT-OP-K Range of Motion Start: 03/04/23 17:19 Freq: Status: Active Protocol: Document 07/07/23 16:46 DCW (Rec: 07/07/23 17:22 DCW [id number]) Cervical Spine Range of Motion Cervical Spine Active Degrees Testing Position Sitting Flexion 65 Extension 60 Rotation Left 80 Rotation Right 80 Lateral Flexion Left 35 Lateral Flexion Right 35 PT-OP-L Special Tests Start: 03/04/23 17:19 Freq: Status: Active Protocol: Document 05/05/23 16:45 DCW (Rec: 05/05/23 17:32 DCW [id number]) Special Tests Lumbar Spine Special Tests Straight Leg Raise Test Results Negative Lateral SI compression Test Results Negative A-P Shearing Test Results Negative PT-OP-M Strength Start: 03/04/23 17:19 Freq: Status: Active Protocol: Document 07/07/23 16:46 DCW (Rec: 07/07/23 17:22 DCW [id number]) Hand Occupational Therapy Assist/Pinch Strength Hand Dominance Hand Dominance Right Hand Strength Right Occupational Therapy Assist (lbs) 78.3 Comments Three trial average (80, 80, 75) Left Occupational Therapy Assist (lbs) 66.67 Comments Three trial average (70, 70, 60) PT-OP-Q Treatments Start: 03/04/23 17:19 Freq: Status: Active Protocol: Document 07/14/23 16:46 DCW (Rec: 07/14/23 17:31 DCW [id number]) Manual Therapy Treatment Soft Tissue Mobilization Hip Flexors Body Location Piriformis Mobilization Type Strumming,Sustained Pressure Body Position Hooklying Paraspinals Body Location UTs, Scalenes, Levator, SCM Mobilization Type Sustained Pressure,Trigger Point Release Intensity/Depth Moderate Body Position Hooklying PT-OP-T Assessment and Plan Start: 03/04/23 17:19 Freq: Status: Active Protocol: Document 07/14/23 16:46 DCW (Rec: 07/14/23 17:31 DCW [id number]) Physical Therapy Assessment Impairments Impairments Activity Tolerance,Functional Activities,Functional Mobility ,Pain,ROM,Sensation,Soft Tissue Mobility,Strength Goals Two Impairment 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 LTG Duration Met One Impairment Pt does not have an appropriate home exercise program Short Term Goal (STG) Pt to be independent and compliant with an appropriate HEP STG Duration 07/24/23 Assessment Summary Assessment Slight worsening of symptoms/ tone following a long, active weekend. Good response to STM today. Physical Therapy Plan Frequency and Duration Frequency of Treatment 2x/Week Plan of Care Start Date 07/07/23 Plan of Care End Date 07/24/23 Therapeutic Interventions Therapeutic Interventions Home Exercise Program,Joint Mobilizations,Manual Therapy, Neuromuscular Re-education, Patient/Caregiver Education, Self-Care/Home Management,Soft Tissue Mobilization, Therapeutic Activities, Therapeutic Exercises Modalities Cold Pack/Ice Massage,Electric Stimulation,Hot Packs Next Visit Focus/Plan Next Note Type Treatment Note Next Visit Plan STM, Shoulder and cervical strengthening, improving activity tolerance, stretching
--- NOTE | 2023-07-17 17:31 | PT.OTN ---
Current Diagnoses Radiculopathy, cervical region (07/17/23) Low back pain, unspecified (07/17/23) Physical Therapy Treatment Note PT-OP-A Visit Information Start: 03/04/23 17:19 Freq: Status: Active Protocol: Document 07/17/23 16:46 DCW (Rec: 07/17/23 17:31 DCW [id number]) Out-Patient Physical Therapy Visit Information Visit Information Visit Type Discharge Summary Visit Start Time 16:46 Visit Stop Time 17:30 Visit Number 12 Number of CLOTHING SORTER Visits 0 Evaluation Information Evaluation Date 03/04/23 PT-OP-B Current Condition Start: 03/04/23 17:19 Freq: Status: Active Protocol: Document 03/04/23 16:30 DCW (Rec: 03/04/23 17:47 DCW [id number]) Current Condition History of Current Condition Onset Date 10/21/22 Current Complaints R radicular pain/numbness/ tingling History of Current Condition Pt is a 37 year old female presenting with a four month history of right UE radicular symptoms resulting in numbness , weakness, and tingling in her right arm, and specifically into her first, second, and third fingers. EMG nerve conduction study showed evidence of C7-8 nerve root involvement, and cervical MRI showed C4-5, C5-6, and C6-7 disc bulges. Pt notes that she has been experiencing spasming in her right upper trap, lat, and serratus anterior. Was struggling to keep up with typical activities of weight training and yoga due to weakness. Does note that over the past few weeks, the numbness and tingling has been improving, and currently feels more like a diminished, muted sensation. Has been receiving OMT, unsure if it has caused the improvement or not. Prior Treatments and Tests Cervical MRI: IMPRESSION: 1. C4-5, C5-6, and C6-7 broad- based paracentral disc bulges as above which deform the anterior aspect of the cord. No cord signal abnormality noted. 2. Moderate bilateral neural foraminal stenosis at C5-6 and C6-7. 3. Mild canal stenosis at C4-5, C5-6, and C6 -7. 4. Focal kyphosis centered at C5. per Kelsey Baker M.D. on 11/25/2022 Treatment Goals Patient/Caregiver Goals Return to yoga and weight lifting without UE weakness or numbness PT-OP-C Subjective Start: 03/04/23 17:19 Freq: Status: Active Protocol: Document 07/17/23 16:46 DCW (Rec: 07/17/23 17:31 DCW [id number]) OP-PT Subjective Patient Comments Patient Comments It's ironic that today's the last visit, because I feel terrible. PT-OP-F Manual Assessment Start: 03/04/23 17:19 Freq: Status: Active Protocol: Document 07/07/23 16:46 DCW (Rec: 07/07/23 17:22 DCW [id number]) Manual Assessments Soft Tissue Assessment Soft Tissue Mobility Assessment Moderate tone in right scalenes, levator, subscap. PT-OP-K Range of Motion Start: 03/04/23 17:19 Freq: Status: Active Protocol: Document 07/07/23 16:46 DCW (Rec: 07/07/23 17:22 DCW [id number]) Cervical Spine Range of Motion Cervical Spine Active Degrees Testing Position Sitting Flexion 65 Extension 60 Rotation Left 80 Rotation Right 80 Lateral Flexion Left 35 Lateral Flexion Right 35 PT-OP-L Special Tests Start: 03/04/23 17:19 Freq: Status: Active Protocol: Document 05/05/23 16:45 DCW (Rec: 05/05/23 17:32 DCW [id number]) Special Tests Lumbar Spine Special Tests Straight Leg Raise Test Results Negative Lateral SI compression Test Results Negative A-P Shearing Test Results Negative PT-OP-M Strength Start: 03/04/23 17:19 Freq: Status: Active Protocol: Document 07/07/23 16:46 DCW (Rec: 07/07/23 17:22 DCW [id number]) Hand Newsstand Vendor/Pinch Strength Hand Dominance Hand Dominance Right Hand Strength Right Newsstand Vendor (lbs) 78.3 Comments Three trial average (80, 80, 75) Left Newsstand Vendor (lbs) 66.67 Comments Three trial average (70, 70, 60) PT-OP-Q Treatments Start: 03/04/23 17:19 Freq: Status: Active Protocol: Document 07/17/23 16:46 DCW (Rec: 07/17/23 17:31 DCW [id number]) Manual Therapy Treatment Soft Tissue Mobilization Paraspinals Body Location UTs, Scalenes, Levator, SCM Mobilization Type Sustained Pressure,Trigger Point Release Intensity/Depth Moderate Body Position Hooklying Joint Mobilizations S/C Joint Sternoclavicular joint mobs Direction Inf Grade III Body Position Supine PT-OP-T Assessment and Plan Start: 03/04/23 17:19 Freq: Status: Active Protocol: Document 07/17/23 16:46 DCW (Rec: 07/17/23 17:31 DCW [id number]) Physical Therapy Assessment Impairments Impairments Activity Tolerance,Functional Activities,Functional Mobility ,Pain,ROM,Sensation,Soft Tissue Mobility,Strength Goals Two Impairment 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 LTG Duration Met One Impairment Pt does not have an appropriate home exercise program Short Term Goal (STG) Pt to be independent and compliant with an appropriate HEP STG Duration 07/24/23 Assessment Summary Assessment Plan was to discharge following today's appointment, however with recent flare-up, therapist and patient discussed leaving chart open for a bit longer just in case she needs a follow-up, will discharge in ~1 month if she has not made a follow-up at that time. Physical Therapy Plan Frequency and Duration Frequency of Treatment 2x/Week Plan of Care Start Date 07/07/23 Plan of Care End Date 07/24/23 Therapeutic Interventions Therapeutic Interventions Home Exercise Program,Joint Mobilizations,Manual Therapy, Neuromuscular Re-education, Patient/Caregiver Education, Self-Care/Home Management,Soft Tissue Mobilization, Therapeutic Activities, Therapeutic Exercises Modalities Cold Pack/Ice Massage,Electric Stimulation,Hot Packs Next Visit Focus/Plan Next Note Type Treatment Note Next Visit Plan STM, Shoulder and cervical strengthening, improving activity tolerance, stretching
--- NOTE | 2023-10-27 17:37 | PT.OPDS ---
Current Diagnoses Radiculopathy, cervical region (07/17/23) Low back pain, unspecified (07/17/23) Visit Care Team Role Provider Type Paolo Cook DO Attending Provider Physician Family Provider Primary Care Provider Referring Provider Specialty: Family Practice Address: [address] [place] [address], [facility] Email: Visit Number Visit Number 12 Discharge Summary PT-OP-B Current Condition Start: 03/04/23 17:19 Freq: Status: Active Protocol: Document 03/04/23 16:30 DCW (Rec: 03/04/23 17:47 DCW [id number]) Current Condition History of Current Condition Onset Date 10/21/22 Current Complaints R radicular pain/numbness/ tingling History of Current Condition Pt is a 37 year old female presenting with a four month history of right UE radicular symptoms resulting in numbness , weakness, and tingling in her right arm, and specifically into her first, second, and third fingers. EMG nerve conduction study showed evidence of C7-8 nerve root involvement, and cervical MRI showed C4-5, C5-6, and C6-7 disc bulges. Pt notes that she has been experiencing spasming in her right upper trap, lat, and serratus anterior. Was struggling to keep up with typical activities of weight training and yoga due to weakness. Does note that over the past few weeks, the numbness and tingling has been improving, and currently feels more like a diminished, muted sensation. Has been receiving OMT, unsure if it has caused the improvement or not. Prior Treatments and Tests Cervical MRI: IMPRESSION: 1. C4-5, C5-6, and C6-7 broad- based paracentral disc bulges as above which deform the anterior aspect of the cord. No cord signal abnormality noted. 2. Moderate bilateral neural foraminal stenosis at C5-6 and C6-7. 3. Mild canal stenosis at C4-5, C5-6, and C6 -7. 4. Focal kyphosis centered at C5. per Kelsey Baker M.D. on 11/25/2022 Treatment Goals Patient/Caregiver Goals Return to yoga and weight lifting without UE weakness or numbness PT-OP-C Subjective Start: 03/04/23 17:19 Freq: Status: Active Protocol: Document 07/17/23 16:46 DCW (Rec: 07/17/23 17:31 DCW [id number]) OP-PT Subjective Patient Comments Patient Comments It's ironic that today's the last visit, because I feel terrible. PT-OP-F Manual Assessment Start: 03/04/23 17:19 Freq: Status: Active Protocol: Document 07/07/23 16:46 DCW (Rec: 07/07/23 17:22 DCW [id number]) Manual Assessments Soft Tissue Assessment Soft Tissue Mobility Assessment Moderate tone in right scalenes, levator, subscap. PT-OP-K Range of Motion Start: 03/04/23 17:19 Freq: Status: Active Protocol: Document 07/07/23 16:46 DCW (Rec: 07/07/23 17:22 DCW [id number]) Cervical Spine Range of Motion Cervical Spine Active Degrees Testing Position Sitting Flexion 65 Extension 60 Rotation Left 80 Rotation Right 80 Lateral Flexion Left 35 Lateral Flexion Right 35 PT-OP-L Special Tests Start: 03/04/23 17:19 Freq: Status: Active Protocol: Document 05/05/23 16:45 DCW (Rec: 05/05/23 17:32 DCW [id number]) Special Tests Lumbar Spine Special Tests Straight Leg Raise Test Results Negative Lateral SI compression Test Results Negative A-P Shearing Test Results Negative PT-OP-M Strength Start: 03/04/23 17:19 Freq: Status: Active Protocol: Document 07/07/23 16:46 DCW (Rec: 07/07/23 17:22 DCW [id number]) Hand Drum Plater/Pinch Strength Hand Dominance Hand Dominance Right Hand Strength Right Drum Plater (lbs) 78.3 Comments Three trial average (80, 80, 75) Left Drum Plater (lbs) 66.67 Comments Three trial average (70, 70, 60) PT-OP-T Assessment and Plan Start: 03/04/23 17:19 Freq: Status: Active Protocol: Document 10/27/23 17:36 DCW (Rec: 10/27/23 17:37 DCW [id number]) Physical Therapy Assessment Assessment Summary Assessment At time of last appointment, therapist and patient were in agreement to discharge if pt had not scheduled a follow-up within one month. Pt has now not been seen in three months, will be discharged from skilled therapy at this time. Physical Therapy Plan Discharge Physical Therapy Discharge Reasons No Longer Attending PT
== END 2023-10-31 12:25 | disposition home or self-care (01) ==
LOC: PHYS 16:45
PROVIDERS: Family Provider Family Medicine; PCP Family Medicine; Referring Provider Family Medicine; Visit Provider Family Medicine
DX: M54.12 Radiculopathy, cervical region (principal); M54.50 Low back pain, unspecified
CPT/HCPCS: 97110; 97140; 97161

== ENCOUNTER → 2023-08-18 14:47 | Outpatient (CLI) | payer OTHER, SELFPAY ==
--- NOTE | 2023-08-18 14:49 | DI.US.S_ITS ---
LIMITED ULTRASOUND OF RIGHT BREAST AND AXILLA: 08/18/2023 CLINICAL: Patient returns today to evaluate a focal asymmetry in the right breast. Patient returns for short term follow-up of a probably benign mass in the right breast. Comparison is made to exams dated: 02/13/2023 ultrasound biopsy, 02/13/2023 mammogram, 02/03/2023 ultrasound, 02/03/2023 mammogram, 08/02/2022 ultrasound - [facility], and 02/08/2022 ultrasound biopsy - [facility] [place]. Color flow and real-time ultrasound of the right breast 7-8 o'clock, and axilla regions were performed. An scale images of the real-time examination were reviewed. There is a 1.2 cm x 0.7 cm x 0.7 cm oval mass in the right breast at 7 o'clock anterior depth 3 cm from the nipple. This oval mass is hypoechoic with a well-defined boundary. This abnormality is not significantly changed. Color flow imaging demonstrates that there is vascularity present. There also is a benign 2 cm x 1.7 cm x 0.9 cm oval mass in the right breast at 8 o'clock middle depth 7 cm from the nipple. This oval mass is hypoechoic with a well-defined boundary. This abnormality is increased in size and correlates with the previous biopsy. Color flow imaging demonstrates that there is vascularity present. No significant abnormalities were seen sonographically in the right axilla. IMPRESSION: PROBABLY BENIGN The 1.2 cm mass in the right breast at 7 o'clock anterior depth most likely is a fibroadenoma and is probably benign. -A follow-up ultrasound in 6 months is recommended to demonstrate long-term stability. The 2 cm mass in the right breast at 8 o'clock middle depth is consistent with a biopsy proven fibroadenoma and is benign. Recommend screening mammogram at age 42. Exam findings were conveyed to the patient. This exam was interpreted at Station ID: [id number]. Electronically Signed By: Ar Queen M.D. slc/:08/18/2023 15:52:17 copy to: TRE ALEX letter sent: Followup Recommended Ultrasound BI-RADS: 3 Probably benign
== END ==
PROVIDERS: Family Provider Family Medicine; PCP Family Medicine; Referring Provider Physician Assistant; Visit Provider Physician Assistant
DX: N63.13 Unspecified lump in the right breast, lower outer quadrant (principal); R92.8 Other abnormal and inconclusive findings on diagnostic imaging of breast
CPT/HCPCS: 76642

== ENCOUNTER → 2023-09-09 07:35 | Outpatient (CLI) | payer OTHER, SELFPAY ==
[2023-09-09 08:29] LABS: Add Manual Diff / Slide Review NO; Basophils Absolute Auto 0 /uL (0-100); Basophils Percent Auto 0.5 % (0-2); Eosinophils Absolute Auto 200 /uL (0-450); Eosinophils Percent Auto 2.9 % (2-4); Hematocrit 40.4 % (36-46); Hemoglobin 13.4 g/dL (12.0-16.0); Lymphocytes Absolute Auto 1700 /uL (1100-4500); Lymphocytes Percent Auto 27.7 % (25-40); Mean Corpuscular HGB Conc 33.2 % (30-36); Mean Corpuscular Hemoglobin 30.1 PG (26-34); Mean Corpuscular Volume 90.7 fL (80-100); Monocytes Absolute Auto 500 /uL (0-900); Monocytes Percent Auto 8.2 % (3-14); Neutrophils Absolute Auto 3800 /uL (1500-7000); Neutrophils Percent Auto 60.7 % (50-75); Platelet Count 300 X10^3/uL (150-400); Red Blood Cell Count 4.46 X10^6/uL (4.0-5.2); Red Cell Distribution Width 13.5 % (11.6-14.8); White Blood Cell Count 6.2 X10^3/uL (4.5-11.0)
[2023-09-09 09:05] LABS: Alanine Aminotransferase 11 IU/L (<35); Albumin 4.6 g/dL (3.5-5.0); Albumin Globulin Ratio 1.7 (1.0-2.8); Alkaline Phosphatase 67 U/L (38-126); Aspartate Aminotransferase 22 IU/L (14-36); Bilirubin Total 0.6 mg/dL (0.2-1.3); Blood Urea Nitrogen 12 mg/dL (7-17); Calcium 9.5 mg/dL (8.4-10.2); Carbon Dioxide 28 mmol/L (22-32); Chloride 105 mmol/L (98-107); Cholesterol 214 mg/dL (140-199); Estimated Glomerular Filt Rate > 60 mL/min (>60); Globulin 2.7 g/dL (1.7-4.1); Glucose 90 mg/dL (70-100); HDL Cholesterol 45 mg/dL (40-60); HEMOLYSIS < 15 (0-50); LDL Cholesterol Calculated 129 mg/dL (<100); Potassium 4.2 mmol/L (3.4-5.1); Sodium 138 mmol/L (137-145); Total Protein 7.3 g/dL (6.3-8.2); Triglycerides 202 mg/dL (35-150)
[2023-09-09 09:33] LABS: Free T3, Triiodothyronine Free 3.78 pg/mL (2.77-5.27); Free T4, Direct Thyroxine 0.82 ng/dL (0.78-2.19)
[2023-09-09 09:46] LABS: Thyroid Stimulating Hormone 0.832 uIU/mL (0.47-4.68)
== END ==
PROVIDERS: Family Provider Family Medicine; PCP Family Medicine; Referring Provider Naturopath; Visit Provider Naturopath
DX: Z00.00 Encounter for general adult medical examination without abnormal findings (principal); E03.9 Hypothyroidism, unspecified
CPT/HCPCS: 36415; 80053; 80061; 84439; 84443; 84481; 85025

== ENCOUNTER → 2023-11-18 14:59 | Outpatient (CLI) | payer OTHER, SELFPAY | PROVIDERS: Family Provider Family Medicine; PCP Family Medicine; Visit Provider Family Medicine | DX: R30.0 Dysuria (principal) | CPT/HCPCS: 87077; 87086; 87186 ==

== ENCOUNTER → 2024-03-05 19:51 | Outpatient (CLI) | payer OTHER, SELFPAY | PROVIDERS: Family Provider Family Medicine; PCP Family Medicine; Referring Provider Internal Medicine; Visit Provider Internal Medicine | DX: Z23 Encounter for immunization (principal) | CPT/HCPCS: 90471; 90656 ==

== ENCOUNTER → 2024-03-25 10:52 | Outpatient (CLI) | payer OTHER, SELFPAY ==
[2024-03-25 13:25] LABS: Pregnancy Test Serum,Qual Negative (Negative)
== END ==
PROVIDERS: Family Provider Family Medicine; PCP Family Medicine; Referring Provider Family Medicine; Visit Provider Family Medicine
DX: N92.6 Irregular menstruation, unspecified (principal)
CPT/HCPCS: 36415; 84703

== ENCOUNTER → 2024-03-30 14:42 | Outpatient (CLI) | payer OTHER, SELFPAY ==
--- NOTE | 2024-03-30 14:43 | DI.US.S_ITS ---
LIMITED ULTRASOUND OF RIGHT BREAST: 03/30/2024 CLINICAL: 6 month follow-up of cysts. Comparison is made to exams dated: 08/18/2023 ultrasound, 02/13/2023 ultrasound biopsy, 02/13/2023 mammogram, 02/03/2023 ultrasound, 08/02/2022 ultrasound, and 01/30/2022 ultrasound - [facility]. Color flow and real-time ultrasound of the right breast 7-8 o'clock region were performed. An scale images of the real-time examination were reviewed. There is a benign 1 cm x 0.6 cm x 0.6 cm oval mass in the right breast at 7 o'clock anterior depth 5 cm from the nipple. This oval mass is hypoechoic with a well-defined boundary. This abnormality is not significantly changed. Color flow imaging demonstrates that there is vascularity present. There also is a benign 2.2 cm x 2.1 cm x 1.1 cm oval mass in the right breast at 8 o'clock middle depth 7 cm from the nipple. This oval mass is hypoechoic with a well-defined boundary. This abnormality is not significantly changed and correlates with the previous biopsy. Color flow imaging demonstrates that there is vascularity present. IMPRESSION: BENIGN There is no sonographic evidence of malignancy. The 1 cm circumscribed mass in the right breast at 7 o'clock anterior depth is most consistent with a fibroadenoma and is benign. The 2.2 cm circumscribed mass in the right breast at 8 o'clock middle depth is consistent with a fibroadenoma and is benign. A 1 year screening mammogram is recommended. Exam findings were conveyed to the patient. Exam findings were discussed with the patient. This exam was interpreted at Station ID: [id number]. Electronically Signed By: Ar Queen M.D. slc/:03/30/2024 16:46:27 copy to: TRE ALEX letter sent: Normal Exam ACR BI-RADS Category 2: Benign
== END ==
PROVIDERS: Family Provider Family Medicine; PCP Family Medicine; Referring Provider Physician Assistant; Visit Provider Physician Assistant
DX: D24.1 Benign neoplasm of right breast (principal); N63.10 Unspecified lump in the right breast, unspecified quadrant
CPT/HCPCS: 76642

== ENCOUNTER 2024-05-20 17:00 | Outpatient (RCR) | payer OTHER, SELFPAY ==
--- NOTE | 2024-04-13 17:00 | PT.OPPOC ---
Physical, Occupational & Speech Therapy At [facility] Current Diagnoses Other chronic pain (04/13/24) Pain in unspecified joint (04/13/24) Pain in right shoulder (04/13/24) Pain in left shoulder (04/13/24) Pain in right hip (04/13/24) Pain in left knee (04/13/24) Stiffness of right hip, not elsewhere classified (04/13/24) Radiculopathy, cervical region (04/13/24) Cervicalgia (04/13/24) Low back pain, unspecified (04/13/24) Visit Care Team Role Provider Type Paolo Cook DO Attending Provider Physician Family Provider Primary Care Provider Referring Provider Specialty: Family Practice Address: [address] [place] [address], [facility] Email: Plan Of Care PT-OP-B Current Condition Start: 04/13/24 17:49 Freq: Status: Active Protocol: Document 04/13/24 16:15 DCW (Rec: 04/14/24 10:48 DCW [id number]) Current Condition History of Current Condition Current Complaints Right hip pressure, stiffness, and soreness History of Current Condition Pt is a 38 year old female presenting with complaints of right hip locking and soreness . Pt consistent with lifting/ workouts at gym, notes right hip feels really tight when attempting squats. Feels like she has increased weakness through her ROM. Has also noticed a fairly extreme clunking sound when in very specific positions, notably when in supine, and she brings her hip info full flexion, then abducts and externally rotates, as she brings her leg back down to neutral, there is a very loud and noticeable clunking/popping. Pt has been treated at this facility previously with shoulder, cervical, and lumbar complaints, pt notes that she is consistent with her HEP, and those areas have been doing well. PT-OP-T Assessment and Plan Start: 04/13/24 17:49 Freq: Status: Active Protocol: Document 04/13/24 16:15 DCW (Rec: 04/14/24 14:42 DCW [id number]) Physical Therapy Assessment Rehab Potential Rehabilitation Potential Good Evaluation Complexity Number of Personal Factors/Comorbidities 1-2 Number of Body Systems Impaired 4 or More Clinical Presentation at Evaluation Evolving Impairments Impairments Activity Tolerance,Functional Activities,Functional Mobility ,Pain,ROM,Strength Goals Two Impairment Pt experiences difficulty with weighted squats during workout Snf Goal (LTG) Pt to report completing full lifting routine during her normal workout with pain or stiffness in her right hip. LTG Duration 06/13/23 One Impairment Pt does not have an appropriate home exercise program Short Term Goal (STG) Pt to be independent and compliant with an appropriate HEP STG Duration 05/13/24 Assessment Summary Assessment Pt presents to skilled therapy with right hip stiffness mildly limiting some of her more complex functional movements, including her typical gym workout. Pt does demonstrate end-range stiffness and some mild- moderate soft tissue tightness along right hip. Biggest red flag is likely the loud, severe crunching pop during active movement of right hip flexion->Abd/ER->return to neutral when in supine. Pop feels to be fairly deep within the joint, and may be suggestive of degenerative changes or labral involvement, however pt does not appear to have any pain or discomfort with scour testing. Difficult to properly DDx, may benefit from x-ray or axial imaging due to potential of intraarticular involvement. Pt does exhibit some weakness in her right hip, specifically internal rotation, and may benefit from skilled therapeutic intervention focusing on improving strength and stability of hip joint. Physical Therapy Plan Frequency and Duration Frequency of Treatment 2x/Week Plan of Care Start Date 04/13/24 Plan of Care End Date 06/13/24 Therapeutic Interventions Therapeutic Interventions Home Exercise Program,Joint Mobilizations,Manual Therapy, Neuromuscular Re-education, Patient/Caregiver Education, Self-Care/Home Management,Soft Tissue Mobilization, Therapeutic Activities, Therapeutic Exercises Modalities Cold Pack/Ice Massage,Electric Stimulation,Hot Packs, Ultrasound Next Visit Focus/Plan Next Note Type Treatment Note Next Visit Plan Hip mobility, joint mobs, STM, flexibility, strengthening Plan of Care Dates Plan of Care Start Date 04/13/24 Plan of Care End Date 06/13/24 Electronically Signed by: Ahsan Sanz, PT 04/14/24 3411 If you are in agreement with this Plan of Care, please return a signed and dated copy. I have reviewed this Plan of Care and certify that the skilled therapy services above are required to meet the patient?s needs. Physician Signature Date Printed Name and Credentials Clinical Instructor Signature Printed Name and Credentials
--- NOTE | 2024-04-13 17:00 | PT.OIE ---
Current Diagnoses Other chronic pain (04/13/24) Pain in unspecified joint (04/13/24) Pain in right shoulder (04/13/24) Pain in left shoulder (04/13/24) Pain in right hip (04/13/24) Pain in left knee (04/13/24) Stiffness of right hip, not elsewhere classified (04/13/24) Radiculopathy, cervical region (04/13/24) Cervicalgia (04/13/24) Low back pain, unspecified (04/13/24) Past Medical History (Last Updated 02/05/24 @ 16:07 by Paolo Cook DO) Acute left-sided thoracic back pain Acute neck pain Brain fog Cervical radiculopathy Cervical radiculopathy at C6 Cervical somatic dysfunction Chronic left shoulder pain Chronic neck pain Chronic pain of left knee Chronic right hip pain Chronic tension type headache Cranial somatic dysfunction Family history of autoimmune disorder Guyon syndrome Hyperlipidemia, mixed Hypothyroid Nausea Neurogenic thoracic outlet syndrome of right brachial plexus Persistent dry cough Premenstrual dysphoric syndrome Recurrent dry cough Right arm numbness Segmental and somatic dysfunction of abdomen and other regions Segmental and somatic dysfunction of rib cage Segmental and somatic dysfunction of thoracic region Segmental and somatic dysfunction of upper extremity Severe menstrual cramps Shoulder pain, right Sinus pain Vitamin D deficiency Past Surgical History (Last Reviewed 12/09/22 @ 12:15 by Tono Antoine DO) History of section Status post delivery (01/21/09) Visit Care Team Role Provider Type Paolo Cook DO Attending Provider Physician Family Provider Primary Care Provider Referring Provider Specialty: [facility] Address: [address] [place] [address], [facility] Email: Physical Therapy Initial Evaluation PT-OP-A Visit Information Start: 04/13/24 17:49 Freq: Status: Active Protocol: Document 04/13/24 16:15 DCW (Rec: 04/13/24 17:52 DCW [id number]) Out-Patient Physical Therapy Visit Information Visit Information Visit Type Initial Evaluation Visit Start Time 16:15 Visit Stop Time 17:00 Visit Number 1 Number of CUT OFF SAW OPERATOR METAL Visits 0 Evaluation Information Evaluation Date 04/13/24 PT-OP-B Current Condition Start: 04/13/24 17:49 Freq: Status: Active Protocol: Document 04/13/24 16:15 DCW (Rec: 04/14/24 10:48 DCW [id number]) Current Condition History of Current Condition Current Complaints Right hip pressure, stiffness, and soreness History of Current Condition Pt is a 38 year old female presenting with complaints of right hip locking and soreness . Pt consistent with lifting/ workouts at gym, notes right hip feels really tight when attempting squats. Feels like she has increased weakness through her ROM. Has also noticed a fairly extreme clunking sound when in very specific positions, notably when in supine, and she brings her hip info full flexion, then abducts and externally rotates, as she brings her leg back down to neutral, there is a very loud and noticeable clunking/popping. Pt has been treated at this facility previously with shoulder, cervical, and lumbar complaints, pt notes that she is consistent with her HEP, and those areas have been doing well. PT-OP-C Subjective Start: 04/13/24 17:49 Freq: Status: Active Protocol: Document 04/13/24 16:15 DCW (Rec: 04/13/24 17:52 DCW [id number]) OP-PT Subjective Patient Comments Patient Comments My right hip motion just feels like its more limited during my workouts. Notes it locks up and has more soreness overall Patient Questionnaires Lower Extremity Functional Scale LEFS Score 71/80 = 88.75% LEFS Impairment 1 to 19% Impaired (Score 63-79 ) PT-OP-F Manual Assessment Start: 04/13/24 17:49 Freq: Status: Active Protocol: Document 04/13/24 16:15 DCW (Rec: 04/14/24 13:43 DCW [id number]) Manual Assessments Soft Tissue Assessment Soft Tissue Mobility Assessment Mild-moderate tone in right lumbar paraspinals and posterior hip Joint Mobility Assessment Joint Mobility Assessment General joint stiffness with passive movement of right hip. Very loud, severe crunching pop during active movement of right hip flexion->Abd/ER-> Return to neutral PT-OP-K Range of Motion Start: 04/13/24 17:49 Freq: Status: Active Protocol: Document 04/13/24 16:15 DCW (Rec: 04/14/24 13:43 DCW [id number]) Hip Goniometric Range of Motion Hip ROM Limitations Comments Hip ROM left = right, however right has subjective tightness /fullness at end-range PT-OP-L Special Tests Start: 04/13/24 17:49 Freq: Status: Active Protocol: Document 04/13/24 16:15 DCW (Rec: 04/14/24 13:43 DCW [id number]) Special Tests Hip Special Tests Scour Test Test Results WNL IDALMIS Test Results R tightness PT-OP-M Strength Start: 04/13/24 17:49 Freq: Status: Active Protocol: Document 04/13/24 16:15 DCW (Rec: 04/14/24 13:43 DCW [id number]) Hip Strength Hip Manual Muscle Testing Right Flexion (L2) 5 Normal Abduction 5 Normal Adduction 5 Normal External Rotation 4 Good Internal Rotation 4- Good- Left Flexion (L2) 5 Normal Abduction 5 Normal Adduction 5 Normal External Rotation 4+ Good+ Internal Rotation 4+ Good+ PT-OP-T Assessment and Plan Start: 04/13/24 17:49 Freq: Status: Active Protocol: Document 04/13/24 16:15 DCW (Rec: 04/14/24 14:42 DCW [id number]) Physical Therapy Assessment Rehab Potential Rehabilitation Potential Good Evaluation Complexity Number of Personal Factors/Comorbidities 1-2 Number of Body Systems Impaired 4 or More Clinical Presentation at Evaluation Evolving Impairments Impairments Activity Tolerance,Functional Activities,Functional Mobility ,Pain,ROM,Strength Goals Two Impairment Pt experiences difficulty with weighted squats during workout Linux Support Engineer Goal (LTG) Pt to report completing full lifting routine during her normal workout with pain or stiffness in her right hip. LTG Duration 06/13/23 One Impairment Pt does not have an appropriate home exercise program Short Term Goal (STG) Pt to be independent and compliant with an appropriate HEP STG Duration 05/13/24 Assessment Summary Assessment Pt presents to skilled therapy with right hip stiffness mildly limiting some of her more complex functional movements, including her typical gym workout. Pt does demonstrate end-range stiffness and some mild- moderate soft tissue tightness along right hip. Biggest red flag is likely the loud, severe crunching pop during active movement of right hip flexion->Abd/ER->return to neutral when in supine. Pop feels to be fairly deep within the joint, and may be suggestive of degenerative changes or labral involvement, however pt does not appear to have any pain or discomfort with scour testing. Difficult to properly DDx, may benefit from x-ray or axial imaging due to potential of intra-articular involvement. Pt does exhibit some weakness in her right hip, specifically internal rotation, and may benefit from skilled therapeutic intervention focusing on improving strength and stability of hip joint. Physical Therapy Plan Frequency and Duration Frequency of Treatment 2x/Week Plan of Care Start Date 04/13/24 Plan of Care End Date 06/13/24 Therapeutic Interventions Therapeutic Interventions Home Exercise Program,Joint Mobilizations,Manual Therapy, Neuromuscular Re-education, Patient/Caregiver Education, Self-Care/Home Management,Soft Tissue Mobilization, Therapeutic Activities, Therapeutic Exercises Modalities Cold Pack/Ice Massage,Electric Stimulation,Hot Packs, Ultrasound Next Visit Focus/Plan Next Note Type Treatment Note Next Visit Plan Hip mobility, joint mobs, STM, flexibility, strengthening
--- NOTE | 2024-04-15 17:02 | PT.OTN ---
Current Diagnoses Other chronic pain (04/15/24) Pain in unspecified joint (04/15/24) Pain in right shoulder (04/15/24) Pain in left shoulder (04/15/24) Pain in right hip (04/15/24) Pain in left knee (04/15/24) Stiffness of right hip, not elsewhere classified (04/15/24) Radiculopathy, cervical region (04/15/24) Cervicalgia (04/15/24) Low back pain, unspecified (04/15/24) Physical Therapy Treatment Note PT-OP-A Visit Information Start: 04/13/24 17:49 Freq: Status: Active Protocol: Document 04/15/24 16:15 DCW (Rec: 04/15/24 17:02 DCW [id number]) Out-Patient Physical Therapy Visit Information Visit Information Visit Type Treatment Note Visit Start Time 16:15 Visit Stop Time 17:00 Visit Number 2 Number of JOB SUPERINTENDENT Visits 0 Evaluation Information Evaluation Date 04/13/24 PT-OP-B Current Condition Start: 04/13/24 17:49 Freq: Status: Active Protocol: Document 04/13/24 16:15 DCW (Rec: 04/14/24 10:48 DCW [id number]) Current Condition History of Current Condition Current Complaints Right hip pressure, stiffness, and soreness History of Current Condition Pt is a 38 year old female presenting with complaints of right hip locking and soreness . Pt consistent with lifting/ workouts at gym, notes right hip feels really tight when attempting squats. Feels like she has increased weakness through her ROM. Has also noticed a fairly extreme clunking sound when in very specific positions, notably when in supine, and she brings her hip info full flexion, then abducts and externally rotates, as she brings her leg back down to neutral, there is a very loud and noticeable clunking/popping. Pt has been treated at this facility previously with shoulder, cervical, and lumbar complaints, pt notes that she is consistent with her HEP, and those areas have been doing well. PT-OP-C Subjective Start: 04/13/24 17:49 Freq: Status: Active Protocol: Document 04/15/24 16:15 DCW (Rec: 04/15/24 17:02 DCW [id number]) OP-PT Subjective Patient Comments Patient Comments Pt feels like her hip flexors are pretty weak PT-OP-F Manual Assessment Start: 04/13/24 17:49 Freq: Status: Active Protocol: Document 04/13/24 16:15 DCW (Rec: 04/14/24 13:43 DCW [id number]) Manual Assessments Soft Tissue Assessment Soft Tissue Mobility Assessment Mild-moderate tone in right lumbar paraspinals and posterior hip Joint Mobility Assessment Joint Mobility Assessment General joint stiffness with passive movement of right hip. Very loud, severe crunching pop during active movement of right hip flexion->Abd/ER-> Return to neutral PT-OP-K Range of Motion Start: 04/13/24 17:49 Freq: Status: Active Protocol: Document 04/13/24 16:15 DCW (Rec: 04/14/24 13:43 DCW [id number]) Hip Goniometric Range of Motion Hip ROM Limitations Comments Hip ROM left = right, however right has subjective tightness /fullness at end-range PT-OP-L Special Tests Start: 04/13/24 17:49 Freq: Status: Active Protocol: Document 04/13/24 16:15 DCW (Rec: 04/14/24 13:43 DCW [id number]) Special Tests Hip Special Tests Scour Test Test Results WNL IDALMIS Test Results R tightness PT-OP-M Strength Start: 04/13/24 17:49 Freq: Status: Active Protocol: Document 04/13/24 16:15 DCW (Rec: 04/14/24 13:43 DCW [id number]) Hip Strength Hip Manual Muscle Testing Right Flexion (L2) 5 Normal Abduction 5 Normal Adduction 5 Normal External Rotation 4 Good Internal Rotation 4- Good- Left Flexion (L2) 5 Normal Abduction 5 Normal Adduction 5 Normal External Rotation 4+ Good+ Internal Rotation 4+ Good+ PT-OP-Q Treatments Start: 04/13/24 17:49 Freq: Status: Active Protocol: Document 04/15/24 16:15 DCW (Rec: 04/15/24 17:02 DCW [id number]) Therapeutic Exercises Sidelying Exercises Reverse Clamshell Sidelying Exercise Name Reverse Clamshellb Side bilateral Resistance Blue Reps/Minutes 5-10 hold Manual Therapy Treatment Consent Patient gave verbal consent for manual Yes treatment Soft Tissue Mobilization Hip Body Location R hip soft tissue - ITB, Piriformis Hip Flexors Body Location R hip flexors Comments Contract/relax into stretch Joint Mobilizations Hip Joint R acetabular Direction Posterior, lateral Grade IV Body Position Hooklying Comments /c strap PT-OP-T Assessment and Plan Start: 04/13/24 17:49 Freq: Status: Active Protocol: Document 04/15/24 16:15 DCW (Rec: 04/15/24 17:02 DCW [id number]) Physical Therapy Assessment Impairments Impairments Activity Tolerance,Functional Activities,Functional Mobility ,Pain,ROM,Strength Goals Two Impairment Pt experiences difficulty with weighted squats during workout Automation Design Engineer Goal (LTG) Pt to report completing full lifting routine during her normal workout with pain or stiffness in her right hip. 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 Continue to work on strengthening, joint mobs, STM, and traction Physical Therapy Plan Frequency and Duration Frequency of Treatment 2x/Week Plan of Care Start Date 04/13/24 Plan of Care End Date 06/13/24 Therapeutic Interventions Therapeutic Interventions Home Exercise Program,Joint Mobilizations,Manual Therapy, Neuromuscular Re-education, Patient/Caregiver Education, Self-Care/Home Management,Soft Tissue Mobilization, Therapeutic Activities, Therapeutic Exercises Modalities Cold Pack/Ice Massage,Electric Stimulation,Hot Packs, Ultrasound Next Visit Focus/Plan Next Note Type Treatment Note Next Visit Plan Hip mobility, joint mobs, STM, flexibility, strengthening
--- NOTE | 2024-04-20 17:01 | PT.OTN ---
Current Diagnoses Other chronic pain (04/20/24) Pain in unspecified joint (04/20/24) Pain in right shoulder (04/20/24) Pain in left shoulder (04/20/24) Pain in right hip (04/20/24) Pain in left knee (04/20/24) Stiffness of right hip, not elsewhere classified (04/20/24) Radiculopathy, cervical region (04/20/24) Cervicalgia (04/20/24) Low back pain, unspecified (04/20/24) Physical Therapy Treatment Note PT-OP-A Visit Information Start: 04/13/24 17:49 Freq: Status: Active Protocol: Document 04/20/24 16:15 DCW (Rec: 04/20/24 17:01 DCW [id number]) Out-Patient Physical Therapy Visit Information Visit Information Visit Type Treatment Note Visit Start Time 16:15 Visit Stop Time 17:00 Visit Number 3 Number of DUST OPERATOR Visits 0 Evaluation Information Evaluation Date 04/13/24 PT-OP-B Current Condition Start: 04/13/24 17:49 Freq: Status: Active Protocol: Document 04/13/24 16:15 DCW (Rec: 04/14/24 10:48 DCW [id number]) Current Condition History of Current Condition Current Complaints Right hip pressure, stiffness, and soreness History of Current Condition Pt is a 38 year old female presenting with complaints of right hip locking and soreness . Pt consistent with lifting/ workouts at gym, notes right hip feels really tight when attempting squats. Feels like she has increased weakness through her ROM. Has also noticed a fairly extreme clunking sound when in very specific positions, notably when in supine, and she brings her hip info full flexion, then abducts and externally rotates, as she brings her leg back down to neutral, there is a very loud and noticeable clunking/popping. Pt has been treated at this facility previously with shoulder, cervical, and lumbar complaints, pt notes that she is consistent with her HEP, and those areas have been doing well. PT-OP-C Subjective Start: 04/13/24 17:49 Freq: Status: Active Protocol: Document 04/20/24 16:15 DCW (Rec: 04/20/24 17:01 DCW [id number]) OP-PT Subjective Patient Comments Patient Comments Notes she worked out Friday and Friday, notes her hip was mostly okay. PT-OP-F Manual Assessment Start: 04/13/24 17:49 Freq: Status: Active Protocol: Document 04/13/24 16:15 DCW (Rec: 04/14/24 13:43 DCW [id number]) Manual Assessments Soft Tissue Assessment Soft Tissue Mobility Assessment Mild-moderate tone in right lumbar paraspinals and posterior hip Joint Mobility Assessment Joint Mobility Assessment General joint stiffness with passive movement of right hip. Very loud, severe crunching pop during active movement of right hip flexion->Abd/ER-> Return to neutral PT-OP-K Range of Motion Start: 04/13/24 17:49 Freq: Status: Active Protocol: Document 04/13/24 16:15 DCW (Rec: 04/14/24 13:43 DCW [id number]) Hip Goniometric Range of Motion Hip ROM Limitations Comments Hip ROM left = right, however right has subjective tightness /fullness at end-range PT-OP-L Special Tests Start: 04/13/24 17:49 Freq: Status: Active Protocol: Document 04/13/24 16:15 DCW (Rec: 04/14/24 13:43 DCW [id number]) Special Tests Hip Special Tests Scour Test Test Results WNL IDALMIS Test Results R tightness PT-OP-M Strength Start: 04/13/24 17:49 Freq: Status: Active Protocol: Document 04/13/24 16:15 DCW (Rec: 04/14/24 13:43 DCW [id number]) Hip Strength Hip Manual Muscle Testing Right Flexion (L2) 5 Normal Abduction 5 Normal Adduction 5 Normal External Rotation 4 Good Internal Rotation 4- Good- Left Flexion (L2) 5 Normal Abduction 5 Normal Adduction 5 Normal External Rotation 4+ Good+ Internal Rotation 4+ Good+ PT-OP-Q Treatments Start: 04/13/24 17:49 Freq: Status: Active Protocol: Document 04/20/24 16:15 DCW (Rec: 04/20/24 17:01 DCW [id number]) Gym Equipment Therapeutic Ball Hip Flexion Exercise Details Hip/Knee flexion Ball Size/Color Blue T-ball Lv 4 Therapeutic Exercises Supine Exercises Bug Supine Exercise Name Bug Sidelying Exercises Triple Threat Sidelying Exercise Name Clam/Reverse Clam/Abd Side bilateral Resistance 5# @ ankle and knee Other Exercises Sliders Other Exercise Name Hip Abduction Manual Therapy Treatment Consent Patient gave verbal consent for manual Yes treatment Soft Tissue Mobilization Hip Body Location R hip soft tissue - ITB, Piriformis Joint Mobilizations Hip Joint R acetabular Direction Posterior, lateral Grade IV Body Position Hooklying Comments /c strap PT-OP-T Assessment and Plan Start: 04/13/24 17:49 Freq: Status: Active Protocol: Document 04/20/24 16:15 DCW (Rec: 04/20/24 17:01 DCW [id number]) Physical Therapy Assessment Impairments Impairments Activity Tolerance,Functional Activities,Functional Mobility ,Pain,ROM,Strength Goals Two Impairment Pt experiences difficulty with weighted squats during workout Assisted Goal (LTG) Pt to report completing full lifting routine during her normal workout with pain or stiffness in her right hip. LTG Duration 06/13/23 One Impairment Pt does not have an appropriate home exercise program Short Term Goal (STG) Pt to be independent and compliant with an appropriate HEP STG Duration 05/13/24 Assessment Summary Assessment Continue to focus on strengthening of hip flexors and internal rotators, as well as joint mobilization and traction. Physical Therapy Plan Frequency and Duration Frequency of Treatment 2x/Week Plan of Care Start Date 04/13/24 Plan of Care End Date 06/13/24 Therapeutic Interventions Therapeutic Interventions Home Exercise Program,Joint Mobilizations,Manual Therapy, Neuromuscular Re-education, Patient/Caregiver Education, Self-Care/Home Management,Soft Tissue Mobilization, Therapeutic Activities, Therapeutic Exercises Modalities Cold Pack/Ice Massage,Electric Stimulation,Hot Packs, Ultrasound Next Visit Focus/Plan Next Note Type Treatment Note Next Visit Plan Hip mobility, joint mobs, STM, flexibility, strengthening
--- NOTE | 2024-04-27 16:59 | PT.OTN ---
Current Diagnoses Other chronic pain (04/27/24) Pain in unspecified joint (04/27/24) Pain in right shoulder (04/27/24) Pain in left shoulder (04/27/24) Pain in right hip (04/27/24) Pain in left knee (04/27/24) Stiffness of right hip, not elsewhere classified (04/27/24) Radiculopathy, cervical region (04/27/24) Cervicalgia (04/27/24) Low back pain, unspecified (04/27/24) Physical Therapy Treatment Note PT-OP-A Visit Information Start: 04/13/24 17:49 Freq: Status: Active Protocol: Document 04/27/24 16:15 DCW (Rec: 04/27/24 16:59 DCW [id number]) Out-Patient Physical Therapy Visit Information Visit Information Visit Type Treatment Note Visit Start Time 16:15 Visit Stop Time 17:00 Visit Number 4 Number of FLOORING INSTALLER Visits 0 Evaluation Information Evaluation Date 04/13/24 PT-OP-B Current Condition Start: 04/13/24 17:49 Freq: Status: Active Protocol: Document 04/13/24 16:15 DCW (Rec: 04/14/24 10:48 DCW [id number]) Current Condition History of Current Condition Current Complaints Right hip pressure, stiffness, and soreness History of Current Condition Pt is a 38 year old female presenting with complaints of right hip locking and soreness . Pt consistent with lifting/ workouts at gym, notes right hip feels really tight when attempting squats. Feels like she has increased weakness through her ROM. Has also noticed a fairly extreme clunking sound when in very specific positions, notably when in supine, and she brings her hip info full flexion, then abducts and externally rotates, as she brings her leg back down to neutral, there is a very loud and noticeable clunking/popping. Pt has been treated at this facility previously with shoulder, cervical, and lumbar complaints, pt notes that she is consistent with her HEP, and those areas have been doing well. PT-OP-C Subjective Start: 04/13/24 17:49 Freq: Status: Active Protocol: Document 04/27/24 16:15 DCW (Rec: 04/27/24 16:59 DCW [id number]) OP-PT Subjective Patient Comments Patient Comments I'm really tired today, I don 't know why. PT-OP-F Manual Assessment Start: 04/13/24 17:49 Freq: Status: Active Protocol: Document 04/13/24 16:15 DCW (Rec: 04/14/24 13:43 DCW [id number]) Manual Assessments Soft Tissue Assessment Soft Tissue Mobility Assessment Mild-moderate tone in right lumbar paraspinals and posterior hip Joint Mobility Assessment Joint Mobility Assessment General joint stiffness with passive movement of right hip. Very loud, severe crunching pop during active movement of right hip flexion->Abd/ER-> Return to neutral PT-OP-K Range of Motion Start: 04/13/24 17:49 Freq: Status: Active Protocol: Document 04/13/24 16:15 DCW (Rec: 04/14/24 13:43 DCW [id number]) Hip Goniometric Range of Motion Hip ROM Limitations Comments Hip ROM left = right, however right has subjective tightness /fullness at end-range PT-OP-L Special Tests Start: 04/13/24 17:49 Freq: Status: Active Protocol: Document 04/13/24 16:15 DCW (Rec: 04/14/24 13:43 DCW [id number]) Special Tests Hip Special Tests Scour Test Test Results WNL IDALMIS Test Results R tightness PT-OP-M Strength Start: 04/13/24 17:49 Freq: Status: Active Protocol: Document 04/13/24 16:15 DCW (Rec: 04/14/24 13:43 DCW [id number]) Hip Strength Hip Manual Muscle Testing Right Flexion (L2) 5 Normal Abduction 5 Normal Adduction 5 Normal External Rotation 4 Good Internal Rotation 4- Good- Left Flexion (L2) 5 Normal Abduction 5 Normal Adduction 5 Normal External Rotation 4+ Good+ Internal Rotation 4+ Good+ PT-OP-Q Treatments Start: 04/13/24 17:49 Freq: Status: Active Protocol: Document 04/27/24 16:15 DCW (Rec: 04/27/24 16:59 DCW [id number]) Gym Equipment Shuttle Recovery Donkey Kick Resistance 37# Therapeutic Exercises Supine Exercises Hip Abduction Supine Exercise Name Hip Abduction in 90/90 Side bilateral Reps/Minutes 1' hold x2 Marching Supine Exercise Name Start in 90/90, alternate march Side bilateral Reps/Minutes 5 hold Sitting Exercises Hip Abduction Sitting Exercise Name Hip abduction - 1' hold Side bilateral Resistance Blue loop Manual Therapy Treatment Soft Tissue Mobilization Hip Body Location R hip soft tissue - ITB, Piriformis Intensity/Depth Moderate Body Position Sidelying Joint Mobilizations Kneeling Hip Joint Anterior mob /c strap Direction Anterior Body Position Half-kneel Hip Joint R acetabular Direction Posterior, lateral Grade IV Body Position Hooklying Comments /c strap PT-OP-T Assessment and Plan Start: 04/13/24 17:49 Freq: Status: Active Protocol: Document 04/27/24 16:15 DCW (Rec: 04/27/24 16:59 DCW [id number]) Physical Therapy Assessment Assessment Summary Assessment Noted difficulty with hip abduction and flexion exercises, but good response to TherEx and manual. Continue to work on joint mobs and strengthening. Physical Therapy Plan Frequency and Duration Frequency of Treatment 2x/Week Plan of Care Start Date 04/13/24 Plan of Care End Date 06/13/24 Therapeutic Interventions Therapeutic Interventions Home Exercise Program,Joint Mobilizations,Manual Therapy, Neuromuscular Re-education, Patient/Caregiver Education, Self-Care/Home Management,Soft Tissue Mobilization, Therapeutic Activities, Therapeutic Exercises Modalities Cold Pack/Ice Massage,Electric Stimulation,Hot Packs, Ultrasound Next Visit Focus/Plan Next Note Type Treatment Note Next Visit Plan Hip mobility, joint mobs, STM, flexibility, strengthening
--- NOTE | 2024-05-03 16:59 | PT.OTN ---
Current Diagnoses Other chronic pain (05/03/24) Pain in unspecified joint (05/03/24) Pain in right shoulder (05/03/24) Pain in left shoulder (05/03/24) Pain in right hip (05/03/24) Pain in left knee (05/03/24) Stiffness of right hip, not elsewhere classified (05/03/24) Radiculopathy, cervical region (05/03/24) Cervicalgia (05/03/24) Low back pain, unspecified (05/03/24) Physical Therapy Treatment Note PT-OP-A Visit Information Start: 04/13/24 17:49 Freq: Status: Active Protocol: Document 05/03/24 16:17 DCW (Rec: 05/03/24 16:59 DCW [id number]) Out-Patient Physical Therapy Visit Information Visit Information Visit Type Treatment Note Visit Start Time 16:17 Visit Stop Time 17:00 Visit Number 5 Number of SHOE PARTS CASER Visits 0 Evaluation Information Evaluation Date 04/13/24 PT-OP-B Current Condition Start: 04/13/24 17:49 Freq: Status: Active Protocol: Document 04/13/24 16:15 DCW (Rec: 04/14/24 10:48 DCW [id number]) Current Condition History of Current Condition Current Complaints Right hip pressure, stiffness, and soreness History of Current Condition Pt is a 38 year old female presenting with complaints of right hip locking and soreness . Pt consistent with lifting/ workouts at gym, notes right hip feels really tight when attempting squats. Feels like she has increased weakness through her ROM. Has also noticed a fairly extreme clunking sound when in very specific positions, notably when in supine, and she brings her hip info full flexion, then abducts and externally rotates, as she brings her leg back down to neutral, there is a very loud and noticeable clunking/popping. Pt has been treated at this facility previously with shoulder, cervical, and lumbar complaints, pt notes that she is consistent with her HEP, and those areas have been doing well. PT-OP-C Subjective Start: 04/13/24 17:49 Freq: Status: Active Protocol: Document 05/03/24 16:17 DCW (Rec: 05/03/24 16:59 DCW [id number]) OP-PT Subjective Patient Comments Patient Comments Notes hip is not too bad, has done gym workouts, feeling alright overall. PT-OP-F Manual Assessment Start: 04/13/24 17:49 Freq: Status: Active Protocol: Document 04/13/24 16:15 DCW (Rec: 04/14/24 13:43 DCW [id number]) Manual Assessments Soft Tissue Assessment Soft Tissue Mobility Assessment Mild-moderate tone in right lumbar paraspinals and posterior hip Joint Mobility Assessment Joint Mobility Assessment General joint stiffness with passive movement of right hip. Very loud, severe crunching pop during active movement of right hip flexion->Abd/ER-> Return to neutral PT-OP-K Range of Motion Start: 04/13/24 17:49 Freq: Status: Active Protocol: Document 04/13/24 16:15 DCW (Rec: 04/14/24 13:43 DCW [id number]) Hip Goniometric Range of Motion Hip ROM Limitations Comments Hip ROM left = right, however right has subjective tightness /fullness at end-range PT-OP-L Special Tests Start: 04/13/24 17:49 Freq: Status: Active Protocol: Document 04/13/24 16:15 DCW (Rec: 04/14/24 13:43 DCW [id number]) Special Tests Hip Special Tests Scour Test Test Results WNL IDALMIS Test Results R tightness PT-OP-M Strength Start: 04/13/24 17:49 Freq: Status: Active Protocol: Document 04/13/24 16:15 DCW (Rec: 04/14/24 13:43 DCW [id number]) Hip Strength Hip Manual Muscle Testing Right Flexion (L2) 5 Normal Abduction 5 Normal Adduction 5 Normal External Rotation 4 Good Internal Rotation 4- Good- Left Flexion (L2) 5 Normal Abduction 5 Normal Adduction 5 Normal External Rotation 4+ Good+ Internal Rotation 4+ Good+ PT-OP-Q Treatments Start: 04/13/24 17:49 Freq: Status: Active Protocol: Document 05/03/24 16:17 DCW (Rec: 05/03/24 16:59 DCW [id number]) Gym Equipment Shuttle Recovery Donkey Kick Resistance 37# Therapeutic Exercises Standing Exercises Calf Stretch Standing Exercise Name Gastroc, Soleus Side bilateral Equipment Used BARRETT Other Exercises Sliders Other Exercise Name Hip Abduction Manual Therapy Treatment Consent Patient gave verbal consent for manual Yes treatment Soft Tissue Mobilization Hip Body Location R hip soft tissue - ITB, Piriformis Intensity/Depth Moderate Body Position Sidelying Joint Mobilizations Kneeling Hip Joint Anterior mob /c strap Direction Anterior Body Position Half-kneel Hip Joint R acetabular Direction Posterior, lateral Grade IV Body Position Hooklying Comments /c strap PT-OP-T Assessment and Plan Start: 04/13/24 17:49 Freq: Status: Active Protocol: Document 05/03/24 16:17 DCW (Rec: 05/03/24 16:59 DCW [id number]) Physical Therapy Assessment Impairments Impairments Activity Tolerance,Functional Activities,Functional Mobility ,Pain,ROM,Strength Goals Two Impairment Pt experiences difficulty with weighted squats during workout Professor Of [employer] Goal (LTG) Pt to report completing full lifting routine during her normal workout with pain or stiffness in her right hip. LTG Duration 06/13/23 One Impairment Pt does not have an appropriate home exercise program Short Term Goal (STG) Pt to be independent and compliant with an appropriate HEP STG Duration 05/13/24 Assessment Summary Assessment Pt showing improvement with hip strengthening activities, better able to maintain proper pelvic stability. Demonstrated good ability for self hip mobs. Physical Therapy Plan Frequency and Duration Frequency of Treatment 2x/Week Plan of Care Start Date 04/13/24 Plan of Care End Date 06/13/24 Therapeutic Interventions Therapeutic Interventions Home Exercise Program,Joint Mobilizations,Manual Therapy, Neuromuscular Re-education, Patient/Caregiver Education, Self-Care/Home Management,Soft Tissue Mobilization, Therapeutic Activities, Therapeutic Exercises Modalities Cold Pack/Ice Massage,Electric Stimulation,Hot Packs, Ultrasound Next Visit Focus/Plan Next Note Type Treatment Note Next Visit Plan Hip mobility, joint mobs, STM, flexibility, strengthening
--- NOTE | 2024-05-13 17:50 | PT.OTN ---
Current Diagnoses Other chronic pain (05/13/24) Pain in unspecified joint (05/13/24) Pain in right shoulder (05/13/24) Pain in left shoulder (05/13/24) Pain in right hip (05/13/24) Pain in left knee (05/13/24) Stiffness of right hip, not elsewhere classified (05/13/24) Radiculopathy, cervical region (05/13/24) Cervicalgia (05/13/24) Low back pain, unspecified (05/13/24) Physical Therapy Treatment Note PT-OP-A Visit Information Start: 04/13/24 17:49 Freq: Status: Active Protocol: Document 05/13/24 17:00 DCW (Rec: 05/13/24 17:50 DCW [id number]) Out-Patient Physical Therapy Visit Information Visit Information Visit Type Treatment Note Visit Start Time 17:00 Visit Stop Time 17:45 Visit Number 6 Number of ENGRAVINGS POLISHER Visits 0 Evaluation Information Evaluation Date 04/13/24 PT-OP-B Current Condition Start: 04/13/24 17:49 Freq: Status: Active Protocol: Document 04/13/24 16:15 DCW (Rec: 04/14/24 10:48 DCW [id number]) Current Condition History of Current Condition Current Complaints Right hip pressure, stiffness, and soreness History of Current Condition Pt is a 38 year old female presenting with complaints of right hip locking and soreness . Pt consistent with lifting/ workouts at gym, notes right hip feels really tight when attempting squats. Feels like she has increased weakness through her ROM. Has also noticed a fairly extreme clunking sound when in very specific positions, notably when in supine, and she brings her hip info full flexion, then abducts and externally rotates, as she brings her leg back down to neutral, there is a very loud and noticeable clunking/popping. Pt has been treated at this facility previously with shoulder, cervical, and lumbar complaints, pt notes that she is consistent with her HEP, and those areas have been doing well. PT-OP-C Subjective Start: 04/13/24 17:49 Freq: Status: Active Protocol: Document 05/13/24 17:00 DCW (Rec: 05/13/24 17:50 DCW [id number]) OP-PT Subjective Patient Comments Patient Comments Pt notes she has had persistent right knee pain since her workout last night. PT-OP-F Manual Assessment Start: 04/13/24 17:49 Freq: Status: Active Protocol: Document 04/13/24 16:15 DCW (Rec: 04/14/24 13:43 DCW [id number]) Manual Assessments Soft Tissue Assessment Soft Tissue Mobility Assessment Mild-moderate tone in right lumbar paraspinals and posterior hip Joint Mobility Assessment Joint Mobility Assessment General joint stiffness with passive movement of right hip. Very loud, severe crunching pop during active movement of right hip flexion->Abd/ER-> Return to neutral PT-OP-K Range of Motion Start: 04/13/24 17:49 Freq: Status: Active Protocol: Document 04/13/24 16:15 DCW (Rec: 04/14/24 13:43 DCW [id number]) Hip Goniometric Range of Motion Hip ROM Limitations Comments Hip ROM left = right, however right has subjective tightness /fullness at end-range PT-OP-L Special Tests Start: 04/13/24 17:49 Freq: Status: Active Protocol: Document 04/13/24 16:15 DCW (Rec: 04/14/24 13:43 DCW [id number]) Special Tests Hip Special Tests Scour Test Test Results WNL IDALMIS Test Results R tightness PT-OP-M Strength Start: 04/13/24 17:49 Freq: Status: Active Protocol: Document 04/13/24 16:15 DCW (Rec: 04/14/24 13:43 DCW [id number]) Hip Strength Hip Manual Muscle Testing Right Flexion (L2) 5 Normal Abduction 5 Normal Adduction 5 Normal External Rotation 4 Good Internal Rotation 4- Good- Left Flexion (L2) 5 Normal Abduction 5 Normal Adduction 5 Normal External Rotation 4+ Good+ Internal Rotation 4+ Good+ PT-OP-Q Treatments Start: 04/13/24 17:49 Freq: Status: Active Protocol: Document 05/13/24 17:00 DCW (Rec: 05/13/24 17:50 DCW [id number]) Gym Equipment Shuttle Recovery Donkey Kick Resistance 37# Shuttle Balance Red Details Staggered Stance, Lateral weight shift Manual Therapy Treatment Consent Patient gave verbal consent for manual Yes treatment Soft Tissue Mobilization Hip Body Location R hip soft tissue - ITB, Piriformis Intensity/Depth Moderate Body Position Sidelying Joint Mobilizations Kneeling Hip Joint Anterior mob /c strap Direction Anterior Body Position Half-kneel Hip Joint R acetabular Direction Posterior, lateral Grade IV Body Position Hooklying Comments /c strap PT-OP-T Assessment and Plan Start: 04/13/24 17:49 Freq: Status: Active Protocol: Document 05/13/24 17:00 DCW (Rec: 05/13/24 17:50 DCW [id number]) Physical Therapy Assessment Impairments Impairments Activity Tolerance,Functional Activities,Functional Mobility ,Pain,ROM,Strength Goals Two Impairment Pt experiences difficulty with weighted squats during workout Mcfp Goal (LTG) Pt to report completing full lifting routine during her normal workout with pain or stiffness in her right hip. LTG Duration 06/13/23 One Impairment Pt does not have an appropriate home exercise program Short Term Goal (STG) Pt to be independent and compliant with an appropriate HEP STG Duration 05/13/24 Assessment Summary Assessment Pt recent knee problems did not limit activities, felt much better following today's treatment. Continue to focus on hip mobility and strength. Physical Therapy Plan Frequency and Duration Frequency of Treatment 2x/Week Plan of Care Start Date 04/13/24 Plan of Care End Date 06/13/24 Therapeutic Interventions Therapeutic Interventions Home Exercise Program,Joint Mobilizations,Manual Therapy, Neuromuscular Re-education, Patient/Caregiver Education, Self-Care/Home Management,Soft Tissue Mobilization, Therapeutic Activities, Therapeutic Exercises Modalities Cold Pack/Ice Massage,Electric Stimulation,Hot Packs, Ultrasound Next Visit Focus/Plan Next Note Type Treatment Note Next Visit Plan Hip mobility, joint mobs, STM, flexibility, strengthening
--- NOTE | 2024-05-20 17:52 | PT.OTN ---
Current Diagnoses Other chronic pain (05/20/24) Pain in unspecified joint (05/20/24) Pain in right shoulder (05/20/24) Pain in left shoulder (05/20/24) Pain in right hip (05/20/24) Pain in left knee (05/20/24) Stiffness of right hip, not elsewhere classified (05/20/24) Radiculopathy, cervical region (05/20/24) Cervicalgia (05/20/24) Low back pain, unspecified (05/20/24) Physical Therapy Treatment Note PT-OP-A Visit Information Start: 04/13/24 17:49 Freq: Status: Active Protocol: Document 05/20/24 17:00 DCW (Rec: 05/20/24 17:52 DCW [id number]) Out-Patient Physical Therapy Visit Information Visit Information Visit Type Treatment Note Visit Start Time 17:00 Visit Stop Time 17:45 Visit Number 7 Number of TECHNICAL TRAINING COORDINATOR Visits 0 Evaluation Information Evaluation Date 04/13/24 PT-OP-B Current Condition Start: 04/13/24 17:49 Freq: Status: Active Protocol: Document 04/13/24 16:15 DCW (Rec: 04/14/24 10:48 DCW [id number]) Current Condition History of Current Condition Current Complaints Right hip pressure, stiffness, and soreness History of Current Condition Pt is a 38 year old female presenting with complaints of right hip locking and soreness . Pt consistent with lifting/ workouts at gym, notes right hip feels really tight when attempting squats. Feels like she has increased weakness through her ROM. Has also noticed a fairly extreme clunking sound when in very specific positions, notably when in supine, and she brings her hip info full flexion, then abducts and externally rotates, as she brings her leg back down to neutral, there is a very loud and noticeable clunking/popping. Pt has been treated at this facility previously with shoulder, cervical, and lumbar complaints, pt notes that she is consistent with her HEP, and those areas have been doing well. PT-OP-C Subjective Start: 04/13/24 17:49 Freq: Status: Active Protocol: Document 05/20/24 17:00 DCW (Rec: 05/20/24 17:52 DCW [id number]) OP-PT Subjective Patient Comments Patient Comments It feels tight. I did legs yesterday. but it just feels like if I am not constantly working on it, it just tightens back up. PT-OP-F Manual Assessment Start: 04/13/24 17:49 Freq: Status: Active Protocol: Document 04/13/24 16:15 DCW (Rec: 04/14/24 13:43 DCW [id number]) Manual Assessments Soft Tissue Assessment Soft Tissue Mobility Assessment Mild-moderate tone in right lumbar paraspinals and posterior hip Joint Mobility Assessment Joint Mobility Assessment General joint stiffness with passive movement of right hip. Very loud, severe crunching pop during active movement of right hip flexion->Abd/ER-> Return to neutral PT-OP-K Range of Motion Start: 04/13/24 17:49 Freq: Status: Active Protocol: Document 04/13/24 16:15 DCW (Rec: 04/14/24 13:43 DCW [id number]) Hip Goniometric Range of Motion Hip ROM Limitations Comments Hip ROM left = right, however right has subjective tightness /fullness at end-range PT-OP-L Special Tests Start: 04/13/24 17:49 Freq: Status: Active Protocol: Document 04/13/24 16:15 DCW (Rec: 04/14/24 13:43 DCW [id number]) Special Tests Hip Special Tests Scour Test Test Results WNL IDALMIS Test Results R tightness PT-OP-M Strength Start: 04/13/24 17:49 Freq: Status: Active Protocol: Document 04/13/24 16:15 DCW (Rec: 04/14/24 13:43 DCW [id number]) Hip Strength Hip Manual Muscle Testing Right Flexion (L2) 5 Normal Abduction 5 Normal Adduction 5 Normal External Rotation 4 Good Internal Rotation 4- Good- Left Flexion (L2) 5 Normal Abduction 5 Normal Adduction 5 Normal External Rotation 4+ Good+ Internal Rotation 4+ Good+ PT-OP-Q Treatments Start: 04/13/24 17:49 Freq: Status: Active Protocol: Document 05/20/24 17:00 DCW (Rec: 05/20/24 17:52 DCW [id number]) Gym Equipment Shuttle Balance Red Details Staggered Stance, Lateral weight shift Therapeutic Ball Bridging Exercise Details Single Leg Bridging /c foot on ball Ball Size/Color Red - 55 cm Body Position Supine Comments Focus on glute contraction Manual Therapy Treatment Consent Patient gave verbal consent for manual Yes treatment Soft Tissue Mobilization Hip Body Location R hip soft tissue - ITB, Piriformis Intensity/Depth Moderate Body Position Sidelying Joint Mobilizations Kneeling Hip Joint Anterior mob /c strap Direction Anterior Body Position Half-kneel Hip Joint R acetabular Direction Posterior, lateral Grade IV Body Position Hooklying Comments /c strap PT-OP-T Assessment and Plan Start: 04/13/24 17:49 Freq: Status: Active Protocol: Document 05/20/24 17:00 DCW (Rec: 05/20/24 17:52 DCW [id number]) Physical Therapy Assessment Impairments Impairments Activity Tolerance,Functional Activities,Functional Mobility ,Pain,ROM,Strength Goals Two Impairment Pt experiences difficulty with weighted squats during workout Assisted Goal (LTG) Pt to report completing full lifting routine during her normal workout with pain or stiffness in her right hip. LTG Duration 06/13/23 One Impairment Pt does not have an appropriate home exercise program Short Term Goal (STG) Pt to be independent and compliant with an appropriate HEP STG Duration 05/13/24 Assessment Summary Assessment Pain in knee/quad from last week no longer a problem. Pt tolerating activity well. Discussed pt likely to be returning to PCP for follow-up , may be appropriate for MRI at this time. Physical Therapy Plan Frequency and Duration Frequency of Treatment 2x/Week Plan of Care Start Date 04/13/24 Plan of Care End Date 06/13/24 Therapeutic Interventions Therapeutic Interventions Home Exercise Program,Joint Mobilizations,Manual Therapy, Neuromuscular Re-education, Patient/Caregiver Education, Self-Care/Home Management,Soft Tissue Mobilization, Therapeutic Activities, Therapeutic Exercises Modalities Cold Pack/Ice Massage,Electric Stimulation,Hot Packs, Ultrasound Next Visit Focus/Plan Next Note Type Treatment Note Next Visit Plan Hip mobility, joint mobs, STM, flexibility, strengthening
--- NOTE | 2024-07-09 15:40 | PT.OPDS ---
Current Diagnoses Other chronic pain (05/20/24) Pain in unspecified joint (05/20/24) Pain in right shoulder (05/20/24) Pain in left shoulder (05/20/24) Pain in right hip (05/20/24) Pain in left knee (05/20/24) Stiffness of right hip, not elsewhere classified (05/20/24) Radiculopathy, cervical region (05/20/24) Cervicalgia (05/20/24) Low back pain, unspecified (05/20/24) Visit Care Team Role Provider Type Paolo Cook DO Attending Provider Physician Family Provider Primary Care Provider Referring Provider Specialty: [facility] Practice Address: [address] [place] [address], [facility] Email: Visit Number Visit Number 7 Discharge Summary PT-OP-B Current Condition Start: 04/13/24 17:49 Freq: Status: Active Protocol: Document 04/13/24 16:15 DCW (Rec: 04/14/24 10:48 DCW [id number]) Current Condition History of Current Condition Current Complaints Right hip pressure, stiffness, and soreness History of Current Condition Pt is a 38 year old female presenting with complaints of right hip locking and soreness . Pt consistent with lifting/ workouts at gym, notes right hip feels really tight when attempting squats. Feels like she has increased weakness through her ROM. Has also noticed a fairly extreme clunking sound when in very specific positions, notably when in supine, and she brings her hip info full flexion, then abducts and externally rotates, as she brings her leg back down to neutral, there is a very loud and noticeable clunking/popping. Pt has been treated at this facility previously with shoulder, cervical, and lumbar complaints, pt notes that she is consistent with her HEP, and those areas have been doing well. PT-OP-C Subjective Start: 04/13/24 17:49 Freq: Status: Active Protocol: Document 05/20/24 17:00 DCW (Rec: 05/20/24 17:52 DCW [id number]) OP-PT Subjective Patient Comments Patient Comments It feels tight. I did legs yesterday. but it just feels like if I am not constantly working on it, it just tightens back up. PT-OP-F Manual Assessment Start: 04/13/24 17:49 Freq: Status: Active Protocol: Document 04/13/24 16:15 DCW (Rec: 04/14/24 13:43 DCW [id number]) Manual Assessments Soft Tissue Assessment Soft Tissue Mobility Assessment Mild-moderate tone in right lumbar paraspinals and posterior hip Joint Mobility Assessment Joint Mobility Assessment General joint stiffness with passive movement of right hip. Very loud, severe crunching pop during active movement of right hip flexion->Abd/ER-> Return to neutral PT-OP-K Range of Motion Start: 04/13/24 17:49 Freq: Status: Active Protocol: Document 04/13/24 16:15 DCW (Rec: 04/14/24 13:43 DCW [id number]) Hip Goniometric Range of Motion Hip ROM Limitations Comments Hip ROM left = right, however right has subjective tightness /fullness at end-range PT-OP-L Special Tests Start: 04/13/24 17:49 Freq: Status: Active Protocol: Document 04/13/24 16:15 DCW (Rec: 04/14/24 13:43 DCW [id number]) Special Tests Hip Special Tests Scour Test Test Results WNL IDALMIS Test Results R tightness PT-OP-M Strength Start: 04/13/24 17:49 Freq: Status: Active Protocol: Document 04/13/24 16:15 DCW (Rec: 04/14/24 13:43 DCW [id number]) Hip Strength Hip Manual Muscle Testing Right Flexion (L2) 5 Normal Abduction 5 Normal Adduction 5 Normal External Rotation 4 Good Internal Rotation 4- Good- Left Flexion (L2) 5 Normal Abduction 5 Normal Adduction 5 Normal External Rotation 4+ Good+ Internal Rotation 4+ Good+ PT-OP-T Assessment and Plan Start: 04/13/24 17:49 Freq: Status: Active Protocol: Document 07/09/24 15:40 DCW (Rec: 07/09/24 15:40 DCW [id number]) Physical Therapy Assessment Assessment Summary Assessment Pt canceled last scheduled visit, which was planned to be her d/c, due to illness. Pt will be discharged at this time, will require a new referral in order to return in the future. Physical Therapy Plan Discharge Physical Therapy Discharge Reasons No Longer Attending PT Next Visit Focus/Plan Next Note Type Discharge Summary
== END 2024-07-12 10:04 | disposition home or self-care (01) ==
LOC: PHYS 17:00
PROVIDERS: Family Provider Family Medicine; PCP Family Medicine; Referring Provider Family Medicine; Visit Provider Family Medicine
DX: M25.551 Pain in right hip (principal); M25.651 Stiffness of right hip, not elsewhere classified; M54.50 Low back pain, unspecified; M25.50 Pain in unspecified joint; M25.512 Pain in left shoulder; G89.29 Other chronic pain; M54.12 Radiculopathy, cervical region; M54.2 Cervicalgia; M25.511 Pain in right shoulder; M25.562 Pain in left knee
CPT/HCPCS: 97110; 97140; 97162

== ENCOUNTER → 2024-06-02 15:39 | Outpatient (CLI) | payer OTHER, SELFPAY ==
--- NOTE | 2024-06-02 15:40 | DI.RAD.S_ITS ---
PROCEDURE: XR CHEST 2V INDICATIONS: cough, fatigue, shortness of breath, r/o PNA TECHNIQUE: 2 views of the chest were acquired. COMPARISON: [facility], CR, XR CHEST 2V, 11/02/2022, 13:02. [facility], CR, XR CHEST 1V, 08/14/2022, 9:34. FINDINGS: Surgical changes and devices: None. Lungs and pleura: Lungs are clear. No pleural effusions or pneumothorax. Mediastinum: Mediastinal contours are normal. Heart size is normal. Bones and chest wall: No suspicious bony abnormalities. Soft tissues appear unremarkable. IMPRESSION: No acute cardiopulmonary abnormality is seen. Dictated by: Gentry Chavez M.D. on 06/03/2024 at 10:11 Approved by: Gentry Chavez M.D. on 06/03/2024 at 10:15
== END ==
PROVIDERS: Family Provider Family Medicine; PCP Family Medicine; Referring Provider Nurse Practitioner Family; Visit Provider Nurse Practitioner Family
DX: R05.9 Cough, unspecified (principal)
CPT/HCPCS: 71046

== ENCOUNTER → 2024-07-05 09:28 | Outpatient (CLI) | payer OTHER, SELFPAY ==
[2024-07-07 20:07] LABS: Aspergillus fumigatus IgE <0.10 kU/L (Class 0)
== END ==
PROVIDERS: Family Provider Family Medicine; PCP Family Medicine; Referring Provider Family Medicine; Visit Provider Family Medicine
DX: R05.9 Cough, unspecified (principal); Z77.120 Contact with and (suspected) exposure to mold (toxic)
CPT/HCPCS: 36415; 86003